=== PATIENT | female | born 1940 | race Caucasian/White ===

== ENCOUNTER → 2016-09-30 | Outpatient (REF) | payer MEDICARE, OTHER ==
[2016-09-30 12:07] LABS: ALBUMIN 4.1 GM/DL (3.2-5.2); ALBUMIN/GLOBULIN RATIO 1.14 (1.00-1.93); ALKALINE PHOSPHATASE 108 U/L (45-117); ALT/SGPT 23 U/L (12-78); ANION GAP 7 MEQ/L (8-16); AST/SGOT 24 U/L (15-37); BILIRUBIN,TOTAL 0.4 MG/DL (0.2-1.0); BLOOD UREA NITROGEN 16 MG/DL (7-18); CALCIUM LEVEL 9.1 MG/DL (8.8-10.2); CARBON DIOXIDE LEVEL 28 MEQ/L (21-32); CHLORIDE LEVEL 106 MEQ/L (98-107); CREATININE FOR GFR 0.73 MG/DL (0.55-1.02); GLOMERULAR FILTRATION RATE > 60.0 (>39); GLUCOSE, FASTING 103 MG/DL (83-110); POTASSIUM SERUM 4.4 MEQ/L (3.5-5.1); SODIUM LEVEL 141 MEQ/L (136-145); TOTAL PROTEIN 7.7 GM/DL (6.4-8.2)
[2016-09-30 12:31] LABS: MEAN CORPUSCULAR HEMOGLOBIN 28.6 pg (27.0-33.0); MEAN CORPUSCULAR HGB CONC 32.5 g/dl (32.0-36.5); MEAN CORPUSCULAR VOLUME 87.8 fl (80.0-96.0); RED CELL DISTRIBUTION WIDTH 13.1 % (11.5-14.5); WHITE BLOOD COUNT 6.7 K/mm3 (4.0-10.0)
== END ==
LOC: M SFHCLERA 08:16
PROVIDERS: ATTEND Internal Medicine
DX: D69.6 Thrombocytopenia, unspecified (principal); G62.9 Polyneuropathy, unspecified; M79.7 Fibromyalgia

== ENCOUNTER → 2016-10-09 | Outpatient (CLI) | payer MEDICARE, OTHER ==
[2016-10-09 08:28] LABS: INR 1.06
[2016-10-09 08:29] LABS: BASO % 0.4 % (0.0-1.0); EOS % 0.5 % (0.0-3.0); LARGE UNSTAINED CELL # 0.1 K/mm3 (0.0-0.4); LARGE UNSTAINED CELL % 1.8 % (0.0-4.0); LYMPH % 25.8 % (24.0-44.0); MEAN CORPUSCULAR HEMOGLOBIN 28.8 pg (27.0-33.0); MEAN CORPUSCULAR HGB CONC 32.5 g/dl (32.0-36.5); MEAN CORPUSCULAR VOLUME 88.6 fl (80.0-96.0); MONO # 1.3 K/mm3 (0.0-0.8); MONO % 18.1 % (0.0-5.0); NEUTROPHILS # 3.9 K/mm3 (1.8-7.7); NEUTROPHILS % 53.4 % (36.0-66.0); PLATELET COUNT, AUTOMATED 114 k/mm3 (150-450); RED CELL DISTRIBUTION WIDTH 13.1 % (11.5-14.5); WHITE BLOOD COUNT 7.3 K/mm3 (4.0-10.0)
[2016-10-09 08:55] LABS: COLLAGEN ADP 131 SECONDS (56-103)
== END ==
LOC: M LAB 07:46
PROVIDERS: ATTEND Internal Medicine Hematology & Oncology
DX: D69.3 Immune thrombocytopenic purpura (principal)

== ENCOUNTER → 2017-04-03 | Outpatient (REF) | payer MEDICARE, OTHER ==
[2017-04-03 11:48] LABS: MEAN CORPUSCULAR HEMOGLOBIN 28.6 pg (27.0-33.0); MEAN CORPUSCULAR VOLUME 89.3 fl (80.0-96.0); RED CELL DISTRIBUTION WIDTH 13.8 % (11.5-14.5); WHITE BLOOD COUNT 7.1 10^3/uL (4.0-10.0)
[2017-04-03 12:09] LABS: ALBUMIN 4.3 GM/DL (3.2-5.2); ALBUMIN/GLOBULIN RATIO 1.08 (1.00-1.93); ALKALINE PHOSPHATASE 118 U/L (45-117); ALT/SGPT 24 U/L (12-78); ANION GAP 8 MEQ/L (8-16); AST/SGOT 21 U/L (15-37); BILIRUBIN,TOTAL 0.5 MG/DL (0.2-1.0); BLOOD UREA NITROGEN 16 MG/DL (7-18); CALCIUM LEVEL 9.3 MG/DL (8.8-10.2); CARBON DIOXIDE LEVEL 28 MEQ/L (21-32); CHLORIDE LEVEL 104 MEQ/L (98-107); CHOLESTEROL LEVEL 169 MG/DL (<200); GLOMERULAR FILTRATION RATE > 60.0 (>39); GLUCOSE, FASTING 87 MG/DL (83-110); POTASSIUM SERUM 4.1 MEQ/L (3.5-5.1); SODIUM LEVEL 140 MEQ/L (136-145); TOTAL PROTEIN 8.3 GM/DL (6.4-8.2); TRIGLYCERIDES LEVEL 149 MG/DL (<150)
== END ==
LOC: M SFHCPLAZ 08:32 → M LRY 08:39
PROVIDERS: ATTEND Internal Medicine
DX: D69.6 Thrombocytopenia, unspecified (principal); E78.6 Lipoprotein deficiency; G62.9 Polyneuropathy, unspecified

== ENCOUNTER → 2017-07-15 | Outpatient (REF) | payer MEDICARE, OTHER | LOC: M SFHCWAGY 17:08 | DX: R30.0 Dysuria (principal) | CPT/HCPCS: 87086 ==

== ENCOUNTER → 2017-09-18 | Outpatient (REF) | payer MEDICARE, OTHER ==
[2017-09-18 16:07] LABS: HEMATOCRIT 37.8 % (36.0-47.0); HEMOGLOBIN 11.9 g/dl (12.0-15.5); MEAN CORPUSCULAR HEMOGLOBIN 27.7 pg (27.0-33.0); MEAN CORPUSCULAR HGB CONC 31.5 g/dl (32.0-36.5); MEAN CORPUSCULAR VOLUME 87.9 fl (80.0-96.0); PLATELET COUNT, AUTOMATED 123 10^3/uL (150-450); WHITE BLOOD COUNT 7.8 10^3/uL (4.0-10.0)
[2017-09-18 16:40] LABS: ALBUMIN 4.1 GM/DL (3.2-5.2); ALBUMIN/GLOBULIN RATIO 0.98 (1.00-1.93); ALKALINE PHOSPHATASE 117 U/L (45-117); ALT/SGPT 19 U/L (12-78); ANION GAP 4 MEQ/L (8-16); AST/SGOT 22 U/L (7-37); BILIRUBIN,TOTAL 0.4 MG/DL (0.2-1.0); BLOOD UREA NITROGEN 13 MG/DL (7-18); C REACTIVE PROTEIN QUANTITATIV 1.91 MG/DL (0.00-0.30); CALCIUM LEVEL 9.1 MG/DL (8.8-10.2); CARBON DIOXIDE LEVEL 30 MEQ/L (21-32); CHLORIDE LEVEL 103 MEQ/L (98-107); CREATININE FOR GFR 0.72 MG/DL (0.55-1.30); GLOMERULAR FILTRATION RATE > 60.0 (>39); GLUCOSE, FASTING 110 MG/DL (70-100); POTASSIUM SERUM 3.9 MEQ/L (3.5-5.1); RHEUMATOID FACTOR QUANT < 10.0 IU/ML (<15.0); SODIUM LEVEL 137 MEQ/L (136-145); TOTAL PROTEIN 8.3 GM/DL (6.4-8.2)
[2017-09-18 17:58] LABS: ERYTHROCYTE SEDIMENTATION RATE 31 mm/hr (0-30)
[2017-09-22 00:07] LABS: Lyme Disease IgG/IgM Antibodie <0.91 ISR (0.00-0.90); Lyme Disease IgM Ab Quantitati <0.80 index (0.00-0.79)
[2017-09-22 00:07] LABS: CYCLIC CITRULLINATED PEPTIDE 8 units (0-19)
== END ==
LOC: M SFHCPLAZ 14:42
DX: M15.9 Polyosteoarthritis, unspecified (principal); M79.7 Fibromyalgia; F41.9 Anxiety disorder, unspecified; D69.6 Thrombocytopenia, unspecified
CPT/HCPCS: 84443

== ENCOUNTER → 2017-10-12 | Outpatient (REF) | payer MEDICARE, OTHER ==
[2017-10-12 16:01] LABS: C REACTIVE PROTEIN QUANTITATIV 2.03 MG/DL (0.00-0.30)
[2017-10-12 16:33] LABS: ERYTHROCYTE SEDIMENTATION RATE 30 mm/hr (0-30)
== END ==
LOC: M SFHCPLAZ 12:11
DX: M15.9 Polyosteoarthritis, unspecified (principal)
CPT/HCPCS: 86140

== ENCOUNTER → 2017-11-25 | Outpatient (REF) | payer MEDICARE, OTHER ==
[2017-11-25 16:17] LABS: C REACTIVE PROTEIN QUANTITATIV 3.06 MG/DL (0.00-0.30)
[2017-11-25 16:42] LABS: ERYTHROCYTE SEDIMENTATION RATE 19 mm/hr (0-30)
== END ==
LOC: M SFHCPLAZ 11:47
DX: M15.9 Polyosteoarthritis, unspecified (principal)
CPT/HCPCS: 86140

== ENCOUNTER → 2017-12-21 | Outpatient (REF) | payer MEDICARE, OTHER ==
[2017-12-21 14:09] LABS: HEMATOCRIT 40.9 % (36.0-47.0); HEMOGLOBIN 12.9 g/dl (12.0-15.5); MEAN CORPUSCULAR HGB CONC 31.5 g/dl (32.0-36.5); MEAN CORPUSCULAR VOLUME 88.9 fl (80.0-96.0); PLATELET COUNT, AUTOMATED 133 10^3/uL (150-450); RED CELL DISTRIBUTION WIDTH 14.6 % (11.5-14.5); WHITE BLOOD COUNT 8.7 10^3/uL (4.0-10.0)
[2017-12-21 14:36] LABS: ERYTHROCYTE SEDIMENTATION RATE 24 mm/hr (0-30)
== END ==
LOC: M SFHCPLAZ 11:07
DX: M15.9 Polyosteoarthritis, unspecified (principal); Z79.899 Other long term (current) drug therapy
CPT/HCPCS: 86140

== ENCOUNTER → 2018-02-08 | Outpatient (REF) | payer MEDICARE, OTHER ==
[2018-02-08 18:29] LABS: C REACTIVE PROTEIN QUANTITATIV 1.07 MG/DL (0.00-0.30)
[2018-02-08 19:00] LABS: ERYTHROCYTE SEDIMENTATION RATE 18 mm/hr (0-30)
== END ==
LOC: M SFHCPLAZ 15:42
DX: M15.9 Polyosteoarthritis, unspecified (principal)
CPT/HCPCS: 86140

== ENCOUNTER → 2018-03-31 | Outpatient (REF) | payer MEDICARE, OTHER | LOC: M SFHCPLAZ 14:17 | DX: M15.9 Polyosteoarthritis, unspecified (principal); Z23 Encounter for immunization | CPT/HCPCS: 90682 ==

== ENCOUNTER → 2018-04-01 | Outpatient (REF) | payer MEDICARE, OTHER ==
[2018-04-01 12:28] LABS: ERYTHROCYTE SEDIMENTATION RATE 23 mm/hr (0-30)
[2018-04-01 13:31] LABS: C REACTIVE PROTEIN QUANTITATIV 2.28 MG/DL (0.00-0.30)
== END ==
LOC: M SFHCPLAZ 08:01
DX: M15.9 Polyosteoarthritis, unspecified (principal)
CPT/HCPCS: 86140

== ENCOUNTER → 2018-04-09 | Outpatient (REF) | payer MEDICARE, OTHER | LOC: M SFHCWAGY 15:48 | DX: R35.0 Frequency of micturition (principal) | CPT/HCPCS: 87086 ==

== ENCOUNTER → 2018-05-05 | Outpatient (CLI) | payer MEDICARE, OTHER | LOC: M LRY 09:24 | DX: M19.041 Primary osteoarthritis, right hand (principal); M19.042 Primary osteoarthritis, left hand; M17.0 Bilateral primary osteoarthritis of knee; M25.711 Osteophyte, right shoulder; M25.712 Osteophyte, left shoulder; M19.031 Primary osteoarthritis, right wrist; M19.032 Primary osteoarthritis, left wrist; M85.88 Other specified disorders of bone density and structure, other site; M25.732 Osteophyte, left wrist | CPT/HCPCS: 73030; 84550 ==

== ENCOUNTER → 2018-05-05 | Outpatient (REF) | payer MEDICARE, OTHER ==
[2018-05-05 11:48] LABS: BASO % 0.2 % (0.0-1.0); EOS % 0.1 % (0.0-3.0); HEMATOCRIT 39.5 % (36.0-47.0); HEMOGLOBIN 12.6 g/dl (12.0-15.5); LYMPH # 1.8 10^3/uL (1.5-4.5); LYMPH % 18.1 % (24.0-44.0); MEAN CORPUSCULAR HEMOGLOBIN 28.5 pg (27.0-33.0); MEAN CORPUSCULAR HGB CONC 31.9 g/dl (32.0-36.5); MEAN CORPUSCULAR VOLUME 89.4 fl (80.0-96.0); MONO # 1.9 10^3/uL (0.0-0.8); MONO % 18.9 % (0.0-5.0); NEUTROPHILS % 61.7 % (36.0-66.0); PLATELET COUNT, AUTOMATED 107 10^3/uL (150-450); RED BLOOD COUNT 4.42 10^6/uL (4.00-5.40); WHITE BLOOD COUNT 9.8 10^3/uL (4.0-10.0)
[2018-05-05 12:09] LABS: ALBUMIN 4.2 GM/DL (3.2-5.2); ALBUMIN/GLOBULIN RATIO 1.14 (1.00-1.93); ALKALINE PHOSPHATASE 97 U/L (45-117); ALT/SGPT 25 U/L (12-78); ANION GAP 7 MEQ/L (8-16); AST/SGOT 23 U/L (7-37); BILIRUBIN,TOTAL 0.4 MG/DL (0.2-1.0); BLOOD UREA NITROGEN 16 MG/DL (7-18); C REACTIVE PROTEIN QUANTITATIV 1.28 MG/DL (0.00-0.30); CALCIUM LEVEL 9.2 MG/DL (8.8-10.2); CARBON DIOXIDE LEVEL 30 MEQ/L (21-32); CHLORIDE LEVEL 103 MEQ/L (98-107); GLOMERULAR FILTRATION RATE > 60.0 (>39); GLUCOSE, FASTING 82 MG/DL (70-100); POTASSIUM SERUM 4.3 MEQ/L (3.5-5.1); SODIUM LEVEL 140 MEQ/L (136-145); TOTAL PROTEIN 7.9 GM/DL (6.4-8.2); URIC ACID 4.3 MG/DL (2.6-6.0)
[2018-05-05 12:37] LABS: ERYTHROCYTE SEDIMENTATION RATE 15 mm/hr (0-30)
== END ==
LOC: M SFHCLERA 09:14
DX: M15.0 Primary generalized (osteo)arthritis (principal); M25.511 Pain in right shoulder
CPT/HCPCS: 84550

== ENCOUNTER → 2018-07-05 | Outpatient (REF) | payer MEDICARE, OTHER | LOC: M SFHCPLAZ 08:23 | PROVIDERS: ATTEND Internal Medicine | DX: E78.6 Lipoprotein deficiency (principal) ==

== ENCOUNTER → 2018-07-09 | Outpatient (REF) | payer MEDICARE, OTHER | LOC: M SFHCPLAZ 14:19 | PROVIDERS: ATTEND Internal Medicine | DX: R30.0 Dysuria (principal) | CPT/HCPCS: 81002; 87086; G0463 ==

== ENCOUNTER → 2018-08-02 | Outpatient (CLI) | payer MEDICARE, OTHER ==
[2018-08-02 11:39] LABS: BASO % 0.2 % (0.0-1.0); EOS % 0.2 % (0.0-3.0); HEMATOCRIT 40.7 % (36.0-47.0); HEMOGLOBIN 12.8 g/dl (12.0-15.5); LYMPH % 24.5 % (24.0-44.0); MEAN CORPUSCULAR HEMOGLOBIN 28.8 pg (27.0-33.0); MEAN CORPUSCULAR HGB CONC 31.4 g/dl (32.0-36.5); MEAN CORPUSCULAR VOLUME 91.5 fl (80.0-96.0); MONO # 1.5 10^3/uL (0.0-0.8); MONO % 18.3 % (0.0-5.0); NEUTROPHILS # 4.6 10^3/uL (1.8-7.7); NEUTROPHILS % 55.7 % (36.0-66.0); PLATELET COUNT, AUTOMATED 119 10^3/uL (150-450); RED BLOOD COUNT 4.45 10^6/uL (4.00-5.40); WHITE BLOOD COUNT 8.2 10^3/uL (4.0-10.0)
== END ==
LOC: M LAB 11:05
PROVIDERS: ATTEND Internal Medicine
DX: M15.0 Primary generalized (osteo)arthritis (principal)

== ENCOUNTER → 2018-09-01 | Outpatient (REF) | payer MEDICARE, OTHER | LOC: M SFHCPLAZ 15:41 | PROVIDERS: ATTEND Internal Medicine | DX: M15.9 Polyosteoarthritis, unspecified (principal) | CPT/HCPCS: 36415; 85652; 86140; G0463 ==

== ENCOUNTER → 2019-03-02 | Outpatient (REF) | payer MEDICARE, OTHER ==
[2019-03-02 11:28] LABS: BASO % 0.2 % (0.0-1.0); HEMATOCRIT 38.9 % (36.0-47.0); HEMOGLOBIN 12.5 g/dl (12.0-15.5); LYMPH # 1.7 10^3/uL (1.5-5.0); MEAN CORPUSCULAR HEMOGLOBIN 29.8 pg (27.0-33.0); MEAN CORPUSCULAR HGB CONC 32.1 g/dl (32.0-36.5); MEAN CORPUSCULAR VOLUME 92.6 fl (80.0-96.0); MONO # 1.5 10^3/uL (0.0-0.8); MONO % 14.1 % (0.0-5.0); NEUTROPHILS # 7.3 10^3/uL (1.5-8.5); NEUTROPHILS % 68.5 % (36.0-66.0); PLATELET COUNT, AUTOMATED 104 10^3/uL (150-450); WHITE BLOOD COUNT 10.6 10^3/uL (4.0-10.0)
[2019-03-02 11:35] LABS: ALBUMIN 4.1 GM/DL (3.2-5.2); ALT/SGPT 21 U/L (12-78); BILIRUBIN,TOTAL 0.6 MG/DL (0.2-1.0); BLOOD UREA NITROGEN 12 MG/DL (7-18); C REACTIVE PROTEIN QUANTITATIV 1.36 MG/DL (0.00-0.30); CALCIUM LEVEL 9.2 MG/DL (8.8-10.2); CARBON DIOXIDE LEVEL 29 MEQ/L (21-32); CHLORIDE LEVEL 103 MEQ/L (98-107); CHOLESTEROL LEVEL 141 MG/DL (<200); GLOMERULAR FILTRATION RATE > 60.0 (>39); GLUCOSE, FASTING 93 MG/DL (70-100); HDL CHOLESTEROL 38 MG/DL (>40); LDL CHOLESTEROL 82 MG/DL (<100); NON-HDL-C 103 MG/DL; POTASSIUM SERUM 4.1 MEQ/L (3.5-5.1); SODIUM LEVEL 139 MEQ/L (136-145); TOTAL PROTEIN 8.1 GM/DL (6.4-8.2); TRIGLYCERIDES LEVEL 106 MG/DL (<150)
[2019-03-02 12:00] LABS: ERYTHROCYTE SEDIMENTATION RATE 19 mm/hr (0-30)
== END ==
LOC: M SFHCPLAZ 08:47
PROVIDERS: ATTEND Internal Medicine
DX: D69.6 Thrombocytopenia, unspecified (principal); M15.9 Polyosteoarthritis, unspecified; E78.6 Lipoprotein deficiency

== ENCOUNTER 2019-04-04 12:01 | Inpatient (IN) | payer MEDICARE, OTHER ==
[~2019-04-04] VITALS: Ht 165.1 cm; Wt 79.8 kg
[2019-04-04] MEDS ORDERED: DULO1CAP5 PO (12:14)
[2019-04-04 15:29] LABS: BASO % 0.2 % (0.0-1.0); EOS % 0.1 % (0.0-3.0); HEMATOCRIT 40.3 % (36.0-47.0); LYMPH # 1.8 10^3/uL (1.5-5.0); LYMPH % 12.7 % (24.0-44.0); MEAN CORPUSCULAR HEMOGLOBIN 29.6 pg (27.0-33.0); MEAN CORPUSCULAR HGB CONC 32.3 g/dl (32.0-36.5); MEAN CORPUSCULAR VOLUME 91.8 fl (80.0-96.0); MONO % 22.4 % (0.0-5.0); NEUTROPHILS # 8.8 10^3/uL (1.5-8.5); NEUTROPHILS % 62.1 % (36.0-66.0); PLATELET COUNT, AUTOMATED 123 10^3/uL (150-450); RED BLOOD COUNT 4.39 10^6/uL (4.00-5.40); WHITE BLOOD COUNT 14.2 10^3/uL (4.0-10.0)
[2019-04-04 15:50] LABS: ERYTHROCYTE SEDIMENTATION RATE 72 mm/hr (0-30)
[2019-04-04 15:54] LABS: BLOOD UREA NITROGEN 11 MG/DL (7-18); CALCIUM LEVEL 9.4 MG/DL (8.8-10.2); CARBON DIOXIDE LEVEL 27 MEQ/L (21-32); CHLORIDE LEVEL 100 MEQ/L (98-107); CREATININE FOR GFR 0.68 MG/DL (0.55-1.30); GLOMERULAR FILTRATION RATE > 60.0 (>39); GLUCOSE, FASTING 108 MG/DL (70-100); POTASSIUM SERUM 3.8 MEQ/L (3.5-5.1); SODIUM LEVEL 133 MEQ/L (136-145)
[2019-04-04 16:31] LABS: MONO # 3.2 10^3/uL (0.0-0.8)
[2019-04-04] MEDS ORDERED: VANCOMYCIN HCL 1,000 MG, VIAL MATE ADAPTER 1 EACH in D5W 250 ML IV ONE (17:15)
--- NOTE | 2019-04-04 20:59 | REPVR ---
PROCEDURE INFORMATION: Exam: MR Left Upper Extremity Joint Without Contrast, Shoulder Exam date and time: 04/04/2019 5:02 PM Clinical history: 78 years old, female; Shoulder; Left; Patient HX: Per PT, received a pnuemonia shot last , now with pain and immobility in lt shld; Additional info: Left shoulder pain; R/O sepsis TECHNIQUE: Imaging protocol: MR of the Left upper extremity without contrast. Exam focused on the shoulder. 3D rendering: MIP reconstructed images were created and reviewed. COMPARISON: CR SHOULDER COMPLETE 05/05/2018 9:48 AM FINDINGS: Distention of the subacromial/subdeltoid bursa, measuring up to 2 cm in transverse thickness, with synovial proliferation. Small volume of glenohumeral joint fluid is also present with mild synovial proliferation and there may be communication between the bursa and the glenohumeral joint through a supraspinatus defect. Muscle edema is seen involving the deltoid and rotator cuff musculature Osseous structures are aligned normally. No linear fracture or concerning osseous lesion. Degenerative cystic changes are present in the lateral humeral head at the supraspinatus insertion level. AC joint is unremarkable for age. No large inferiorly directed subacromial spur. Supraspinatus demonstrates moderately severe tendinopathy with globular thickening and increased T2 signal and there appears to be a full thickness tear just posterior to the anterior margin, measuring perhaps 1 cm AP, retracted by 1 cm. Infraspinatus tendon appears intact. Normal muscle bulk and signal is preserved. Teres minor appears normal. Subscapularis tendon appears intact. Normal muscle bulk and signal in the imaged portions. Long head biceps tendon lies in the intertubercular sulcus. Intact biceps anchor. No evidence of traumatic glenoid labrum detachment. Degenerative chondral thinning is present in glenohumeral joint with areas of full-thickness cartilage loss and reactive osteophytes. Coracoacromial arch ligaments appear intact. IMPRESSION: Significant distention of the subacromial/subdeltoid bursa with fluid, and associated synovitis, possibly communicating with the glenohumeral joint. Adjacent edema within the deltoid and rotator cuff muscles. I cannot exclude infection and aspiration of the bursa may be warranted. Small full-thickness supraspinatus tear just posterior to the anterior leading margin, with moderate tendinopathy involving the remainder of the tendon. Electronically signed by: Ricky Leo On 04/04/2019 20:59:12 PM
[2019-04-04] MEDS ORDERED: NASA1SPR (21:39)
[2019-04-04] MEDS ORDERED: NATU1TAB5 PO (21:39)
[2019-04-04] MEDS ORDERED: AMBI5TAB PO (21:39)
[2019-04-04] MEDS ORDERED: MAGN30TA PO (21:39)
[2019-04-04] MEDS ORDERED: CALC1TAB8 PO (21:39)
[2019-04-04] MEDS ORDERED: OCUVTAB4 PO (21:39)
--- NOTE | 2019-04-04 23:44 | HPEPDOC ---
General Date of Admission 04/04/19 Date of Service: Apr 04, 2019 Primary Care Physician: Lamberto Saunders Chief Complaint The patient is a 78-year-old female admitted with a reason for visit of Shoulder Pain. Source: Patient Exam Limitations: No limitations Timing/Duration: Other Severity: Moderate (4 days) Associated Symptoms: Other History of Present Illness This is a 78 years old white female with past medical history of arthritis meniscus problems. Patient received the diuretics. 4 days ago on the left shoulder and of the word pain started, which is slowly getting worse, etc., red, swollen and crit. I local temperature and patient came to ER for further workup. Home Medications Scheduled Calcium Carbonate/Vitamin D3 (Calcium 600-Vit D3 400 Tablet) 1 Each Tablet, 1 TAB PO DAILY, (Reported) Cholecalciferol (Vitamin D3) (Vitamin D3) 5,000 Unit Tablet, 5,000 UNIT PO DAILY, (Reported) Duloxetine Hcl (Duloxetine HCl) 30 Mg Capsule.dr, 30 MG PO DAILY, (Reported) Magnesium (Magnesium) 30 Mg Tablet, 60 MG PO DAILY, (Reported) Vit A/Vit C/Vit E/Zinc/Copper (Preservision Areds Tablet) 1 Each Tablet, 1 TAB PO DAILY, (Reported) Scheduled PRN Triamcinolone Acetonide (Nasacort) 10.8 Ml [place], 2 SPRAYS NA DAILY PRN for NASAL CONGESTION, (Reported) Zolpidem Tartrate (Ambien) 5 Mg Tablet, 5 MG PO QHS PRN for INSOMNIA, (Reported) Allergies Coded Allergies: Nitrate Analogues (Verified Allergy, Intermediate, REDDNESS IN FACE AND NECK, 04/04/19) Sulfa (Sulfonamide Antibiotics) (Verified Allergy, Intermediate, REDDNESS IN FACE AND NECK, 04/04/19) nitrofurantoin (Verified Allergy, Intermediate, REDDNESS IN FACE AND NECK, 04/04/19) NSAIDS (Non-Steroidal Anti-Inflamma (Verified Allergy, Unknown, 04/04/19) Penicillins (Verified Adverse Reaction, Intermediate, HANDS TINGLED, SYNCOPE, 04/04/19) Past Medical History Medical History Osteoarthritis, vitamin D deficiency, meniscus problems, qualitative platelet disorder Surgical History Medicine. Discussed surgery Family History Significant Family History: No pertinent family hx Social History * Smoker: Denies Alcohol: Denies Drugs: denies A-FIB/CHADSVASC A-FIB History Current/History of A-Fib/PAF?: No Review of Systems Constitutional: Denies: Chills, Fever, Malaise, Night Sweats, Weakness, Fatigue, Weight Loss, Lethargy, Other Eyes: Denies: Pain, Vision change, Conjunctivae inflammation, Eyelid inflammation, Redness, Other ENT: Denies: Head Aches, Ear Pain, Dysphagia, Sinus Congestion, Post Nasal Drip, Sore Throat, Epistaxis, Other Symptoms Skin: Denies: Rash, Lesions, Jaundice, Bruising, Itching, Dry, Breakdown, Nail Changes, Other Pulmonary: Denies: Dyspnea, Cough, Pleuritic Chest Pain, Other Symptoms Cardiovascular: Denies: Chest Pain, Palpitations, Orthopnea, Paroxysmal Noc. Dyspnea, Edema, Lt Headedness, Other Symptoms Gastrointestinal: Denies: Nausea, Vomiting, Abdominal Pain, Diarrhea, Constipation, Melena, Hematochezia, Other Symptoms Genitourinary: Denies: Dysuria, Frequency, Incontinence, Hematuria, Retention, Other Symptoms Musculoskeletal: Reports: Shoulder Pain, Other Symptoms (, F, shoulder pain) Neurological: Denies: Weakness, Numbness, Incoordination, Change in speech, Confusion, Seizures, Other Symptoms Psych: Denies: Mood Normal, Anxiety, Depression, Memory Issues, Thoughts of Self Harm, Anger, Thoughts of Harming Other, Other Psych Physical Examination General Exam: Positive: Alert, Cooperative Eye Exam: Positive: PERRLA, Conjunctiva & lids normal ENT Exam: Positive: Atraumatic, Mucous membr. moist/pink Neck Exam: Positive: Supple Chest Exam: Positive: Normal air movement Heart Exam: Positive: Rate Normal, Normal S1, Normal S2 Abdomen Exam: Positive: Normal bowel sounds, Soft Extremity Exam: Positive: Normal pulses, Other (, redness, swelling of left shoulder with tenderness on palpation at the deltoid muscle) Skin Exam: Positive: Other skin issue (redness at the left shoulder) Vital Signs Vital Signs Date Time Temp Pulse Resp B/P (MAP) Pulse Ox O2 Delivery O2 Flow Rate FiO2 04/04/19 22:17 99.3 90 17 174/74 (107) 96 Room Air Laboratory Data Labs 24H Laboratory Tests 2 04/04/19 15:11: Immature Granulocyte % (Auto) 2.5, White Blood Count 14.2H, Red Blood Count 4.39, Hemoglobin 13.0, Hematocrit 40.3, Mean Corpuscular Volume 91.8, Mean Lisa uscular Hemoglobin 29.6, Mean Corpuscular Hemoglobin Concent 32.3, Red Cell Distribution Width 14.6H, Platelet Count 123L, Neutrophils (%) (Auto) 62.1, Lymphocytes (%) (Auto) 12.7L, Monocytes (%) (Auto) 22.4H, Eosinophils (%) (Auto) 0.1, Basophils (%) (Auto) 0.2, Neutrophils # (Auto) 8.8H, Lymphocytes # (Auto) 1.8, Monocytes # (Auto) 3.2H, Eosinophils # (Auto) 0.0, Basophils # (Auto) 0.0, Nucleated Red Blood Cells % (auto) 0.0, Erythrocyte Sedimentation Rate 72H, Anion Gap 6L, Glomerular Filtration Rate > 60.0, Lactic Acid Level 1.1, Blood Urea Nitrogen 11, Creatinine 0.68, Sodium Level 133L, Potassium Level 3.8, Chloride Level 100, Carbon Dioxide Level 27, Calcium Level 9.4, C-Reactive Prot ein, Quantitative 16.60H CBC/BMP Laboratory Tests 04/04/19 15:11 Red Blood Count 4.39, Mean Corpuscular Volume 91.8, Mean Corpuscular Hemoglobin 29.6, Mean Corpuscular Hemoglobin Concent 32.3, Red Cell Distribution Width 14.6 H, Neutrophils (%) (Auto) 62.1, Lymphocytes (%) (Auto) 12.7 L, Monocytes (%) (Auto) 22.4 H, Eosinophils (%) (Auto) 0.1, Basophils (%) (Auto) 0.2, Neutrophils # (Auto) 8.8 H, Lymphocytes # (Auto) 1.8, Monocytes # (Auto) 3.2 H, Eosinophils # (Auto) 0.0, Basophils # (Auto) 0.0, Calcium Level 9.4 Microbiology Microbiology 04/04/19 Blood Culture, Received Pending 04/04/19 Blood Culture, Received Pending Problems (1) Other infective bursitis, left shoulder Status: Acute Problem Text: Patient was seen and evaluated by Dr. Gandhi from orthopedic surgery and has recommended to admit patient and get her medically clear for possible washout of the bursa [facility] IV vancomycin has been started and will continue 1 g IV every 12 hours Hematology consultation with Dr. Choi to be called in a.m. to clear the patient from hematology point of view for qualitative platelet disorder Continue home meds Pain management in progress DVT prophylaxis with SCDs NPo from midnight for possible surgery in a.m. (2) Cellulitis of left shoulder Status: Acute Problem Text: Vancomycin 1 g IV every 12 hours CBC, CMP in a.m. , Tylenol when necessary Percocet 1 tab by mouth every 4 hours when necessary Plan / VTE VTE Prophylaxis Ordered?: Yes RED CRONIN MD Apr 04, 2019 23:44
[2019-04-04] MEDS ORDERED: zolPIDEM TARTRATE 5 MG TAB PO PRN (23:45)
[2019-04-05] VITALS (9 sets, daily range): BP systolic 144–163; BP diastolic 70–92
[2019-04-05] MEDS: PERCOCET 5MG/325MG TAB PO PRN ×2 (01:39→21:15)
[2019-04-05] MEDS: VANCOMYCIN HCL 1,000 MG, VIAL MATE ADAPTER 1 EACH in D5W 250 ML IV SCH ×2 (02:31→21:04)
--- NOTE | 2019-04-05 05:16 | PHACANCOPD ---
PHARMACY VANCOMYCIN DOSING Pt Demographics Demographics Patient Age:78 , Weight:79.800 , Gender: female Adjusted Body Weight Date: 04/05/19, Adjusted Body Weight: [66.12] Kg Vancomycin Vancomycin indication: SSTI LEFT SHOULDER Vancomycin Target Ranges: 15-20 mcg/ml Vancomycin Load Y/N: No Load Dose Date Time Vancomycin Load Dose: Date: Time: Vancomycin Dose Date: 04/05/19. Current Vancomycin Dose: [1GM@18,THEN Q18@02] Intermittent Dosing?: No Labs Micro Microbiology 04/04/19 Blood Culture, Received Pending 04/04/19 Blood Culture, Received Pending Creatinine Clearance Date:04/05/19. Creatinine Clearance: [~49.9].CALCULATED Assessment and Plan Maintaining Current Dose?: Yes Reason for dose change: No Dose Change Pharmacist Note Pharmacist Note Date: 04/05/19. Pharmacist note:[id number] admitted w/ l.shoulder pain,swelling,cellulitis wt:79.8kg (ABW=66.12kg),ht:65",SCR:0.68, Calculated CRCL~49.9. Allergies/ADR: nitrofurantoin,nsaids,sulfa,pcn. Vancomycin 1 gram administered in ED 04/04@18:30, then will begin q18H regimen with first dose 04/05@0200(8 hours after 1st). trough is scheduled for this pm@1900(prior to the 3rd dose)-Will continue to monitor labs and make adjustments as necessary. PARTHA BAZZI PHARMACY Apr 05, 2019 05:16
[2019-04-05] MEDS: DULoxetine 30 MG CAP (CYMBALTA) PO SCH (09:02)
--- NOTE | 2019-04-05 09:15 | HPE ---
DATE OF ADMISSION: 04/04/2019 CHIEF COMPLAINT: Left shoulder pain after vaccine. HISTORY OF PRESENT ILLNESS: This 78-year-old female was seen today for 5-day history of left shoulder pain. She had her flu shot at [facility] about 5 days ago now. She knows that she did not feel particularly well that evening. She was not feeling well. She states she developed increasing amounts of left shoulder pain and presented to the emergency department. She has never had anything like this before. 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 PAST MEDICAL HISTORY: Osteoarthritis, vitamin D deficiency, meniscus problems, qualitative platelet disorder. MEDICATIONS: - calcium carbonate/vitamin D - duloxetine - magnesium - vitamins ALLERGIES: To NITRATE ANALOG, SULFA, NITROFURANTOIN, NONSTEROIDAL ANTIINFLAMMATORY DRUGS (NSAIDS),PENICILLINS. SOCIAL HISTORY: Denies smoking, alcohol, drug use. PHYSICAL EXAMINATION: A well-appearing 78 old female. She is alert and times three. She is here with her son. She responds appropriately. She looks well. She is standing up, able to sit down appropriately. Inspection of the shoulder reveals some mild redness and warmth, especially at the anterior aspect of the deltoid. There is no other hot, swollen, warm, or painful joints. Internal and external rotation of the arm at the side of the body does not elicit any pain, however, active and passive is to only about 15 degrees before quite a bit of shoulder pain. There is a little bit of fullness on the deltoid. Normal sensation throughout the hand in the median, radial, and ulnar nerves. Good motor function of the same . Hands warm and well perfused and strong radial pulse. LABORATORY EXAMINATION: Yesterday afternoon reveals a white blood cell of 14.2. Neutrophil percentage 62%. ESR 72. CRP 16.6. There were radiographs taken at the urgent care center. These were not put onto the computer system yet. MRI was performed urgently of the left shoulder. This shows significant distention of the subacromial/subdeltoid bursa with fluid and associated synovitis, possibly communicating with the glenohumeral joint. Adjacent edema within the deltoid and rotator cuff muscles. I cannot exclude infection and aspiration of the bursa may be warranted. Small full-thickness supraspinatus tear just posterior to the anterior leading Margin with moderate tendinopathy involving the remainder of the tendon. This was the radiologist's dictation from Ricky Leo at 04/04/2019 at 2059. According to own interpretation, this does appear to be a significant subdeltoid/subacromial bursitis indicating likely infection. There is only a small amount of joint fluid. ASSESSMENT AND PLAN: This 78-year-old female appears to have developed septic bursitis after a vaccine injection of the left shoulder. This could also be a severe inflammatory reaction. We have started her on vancomycin. I think it would be ham to least perform an aspiration of the fluid and for cultures or I think it more of a definitive procedure would be to perform irrigation and debridement arthroscopically of both the subacromial space, as well as the glenoid, to get source control, as well as to preserve the cartilage in her shoulder if it does communicate to the intraarticular portion of the left shoulder. For now, the patient would like to wait to see what her evp marketing would say about from the surgery, as she had quite a bit of a problem in the past with a knee arthroscopy and spent 5 days in hospital. We will wait to see what they say. In the meantime, we will make sure that her vital signs are stable, that she is not developing any signs of sepsis. We will keep her fasting in preparation for procedure if she wants to go ahead with that and if it is safe per her evp marketing. I await their opinion.
[2019-04-05] MEDS: NS 1,000 ML IV SCH (11:14)
--- NOTE | 2019-04-05 11:35 | IPNPDOC ---
Date Seen The patient was seen on 04/05/19. Progress Note SUBJECTIVE: Patient reported persistent L. shoulder discomfort but appeared comfortable sitting in bed this morning. Afebrile overnight. No acute issues reported. Platelets 123 today, Hb 13, no evidence of bleeding. OBJECTIVE PHYSICAL EXAMINATION: VITAL SIGNS: Please see below. General: No acute distress, Alert Eyes: Normal sclera, EOMI. HENT: Atraumatic, neck supple, moist mucous membranes Cardiovascular: Normal rate, normal rhythm. Pulmonary: Clear to auscultation b/l, no wheezing GI: Soft, nontender, nondistended Skin: Warm and dry. MSK: L. shoulder with mild erythema, warm to touch and with swelling. Tender to palpation withi reduced ROM. Neuro: CN grossly intact. No focal deficits. Psych: oriented x 3 LABORATORY DATA, IMAGING STUDIES, MICROBIOLOGY: Please see below. DVT prophylaxis ordered?: SCDs L. shoulder MRI- IMPRESSION: Significant distention of the subacromial/subdeltoid bursa with fluid, and associated synovitis, possibly communicating with the glenohumeral joint. Adjacent edema within the deltoid and rotator cuff muscles. I cannot exclude infection and aspiration of the bursa may be warranted. Small full-thickness supraspinatus tear just posterior to the anterior leading margin, with moderate tendinopathy involving the remainder of the tendon. ASSESSMENT AND PLAN: 1. L. shoulder bursitis - Pain control. - c/w Vancomycin. - Ortho team following. Planned for OR today for washout. - Discussed with patient's second shift supervisor Dr. Yen [phone]. Recommended platelets prior to procedure. If excessive bleeding occurs during/after procedure, can give additional platelets as well as DDAVP .3mcg/kg if needed. Does not expect major bleeding/complications with this procedure however. 2. Qualitative platelet defect - Follows with Dr. Yen in [place] every few years. - Last seen in 2017. Normally with no complications. - To give platelets prior to OR today. If needed, can get more after procedure if excessively bleeding is noted. VS, I&O, 24H, Fishbone Vital Signs/I&O Vital Signs Date Time Temp Pulse Resp B/P (MAP) Pulse Ox O2 Delivery O2 Flow Rate FiO2 04/05/19 06:00 98.4 76 18 156/72 (100) 95 04/04/19 22:17 Room Air I&O- Last 24 Hours up to 6 AM 04/05/19 05:59 Intake Total 20 ml Balance 20 ml Laboratory Data 24H LABS Laboratory Tests 2 04/04/19 15:11: Immature Granulocyte % (Auto) 2.5, White Blood Count 14.2H, Red Blood Count 4.39, Hemoglobin 13.0, Hematocrit 40.3, Mean Corpuscular Volume 91.8, Mean Corpuscular Hemoglobin 29.6, Mean Corpuscular Hemoglobin Concent 32.3, Red Cell Distribution Width 14.6H, Platelet Count 123L, Neutrophils (%) (Auto) 62.1, Lymphocytes (%) (Auto) 12.7L, Monocytes (%) (Auto) 22.4H, Eosinophils (%) (Auto) 0.1, Basophils (%) (Auto) 0.2, Neutrophils # (Auto) 8.8H, Lymphocytes # (Auto) 1.8, Monocytes # (Auto) 3.2H, Eosinophils # (Auto) 0.0, Basophils # (Auto) 0.0, Nucleated Red Blood Cells % (auto) 0.0, Erythrocyte Sedimentation Rate 72H, Anion Gap 6L, Glomerular Filtration Rate > 60.0, Lactic Acid Level 1.1, Blood Urea Nitrogen 11, Creatinine 0.68, Sodium Level 133L, Potassium Level 3.8, Chloride Level 100, Carbon Dioxide Level 27, Calcium Level 9.4, C-Reactive Protein, Quantitative 16.60H CBC/BMP Laboratory Tests 04/04/19 15:11 Red Blood Count 4.39, Mean Corpuscular Volume 91.8, Mean Corpuscular Hemoglobin 29.6, Mean Corpuscular Hemoglobin Concent 32.3, Red Cell Distribution Width 14.6 H, Neutrophils (%) (Auto) 62.1, Lymphocytes (%) (Auto) 12.7 L, Monocytes (%) (Auto) 22.4 H, Eosinophils (%) (Auto) 0.1, Basophils (%) (Auto) 0.2, Neutrophils # (Auto) 8.8 H, Lymphocytes # (Auto) 1.8, Monocytes # (Auto) 3.2 H, Eosinophils # (Auto) 0.0, Basophils # (Auto) 0.0, Calcium Level 9.4 Microbiology Microbiology 04/04/19 Blood Culture, Received Pending 04/04/19 Blood Culture, Received Pending MATHIEU BUI MD Apr 05, 2019 11:35
[2019-04-05] MEDS ORDERED: LIDOCAINE 2% INJ 100 MG/5 ML SDV (FOR ANES.) As Ordered ONE (13:15)
[2019-04-05] MEDS ORDERED: ROCURONIUM BROMIDE 50 MG/5 ML VIAL As Ordered ONE (13:15)
[2019-04-05] MEDS ORDERED: dexameTHASONE 4 MG/ML 1ML VIAL (J1100) As Ordered ONE (13:15)
[2019-04-05] MEDS ORDERED: PROPOFOL 200 MG/20 ML VIAL As Ordered ONE (13:15)
[2019-04-05] MEDS ORDERED: ONDANSETRON 4MG/2ML VIAL (J2405) As Ordered ONE ×2 (13:15→18:35)
[2019-04-05] MEDS ORDERED: fentaNYL 250 MCG/5 ML INJECTION (J3010) As Ordered ONE (13:16)
[2019-04-05] MEDS ORDERED: MIDAZOLAM INJ 2 MG/2 ML VIAL (J2250) As Ordered ONE (13:16)
[2019-04-05] MEDS ORDERED: EPINEPHrine 1MG/ML INJ 30ML MD-VIAL As Ordered ONE (15:02)
[2019-04-05] MEDS ORDERED: BUPIVACAINE HCL 0.25% 30 ML VIAL As Ordered ONE (15:48)
[2019-04-05] MEDS ORDERED: LR 1,000 ML IV SCH (17:30)
[2019-04-05] MEDS ORDERED: ONDANSETRON 4MG/2ML VIAL (J2405) IV PRN ×2 (17:30→22:00)
[2019-04-05] MEDS ORDERED: fentaNYL 100 MCG/2 ML INJECTION (J3010) As Ordered ONE (17:30)
[2019-04-05] MEDS: fentaNYL 100 MCG/2 ML INJECTION (J3010) IV PRN ×4 (17:33→18:14)
[2019-04-05] MEDS ORDERED: PERCOCET 5MG/325MG TAB PO PRN (18:30)
[2019-04-05] MEDS: LR 1,000 ML IV SCH (18:31)
--- NOTE | 2019-04-05 18:31 | RO ---
DATE OF PROCEDURE: 04/05/2019 PREOPERATIVE DIAGNOSIS: Left shoulder septic bursitis. POSTOPERATIVE DIAGNOSIS: Left shoulder septic bursitis versus inflammatory reaction. PLANNED PROCEDURE: Left shoulder irrigation and debridement, arthroscopic. SURGERY PERFORMED: Left shoulder irrigation and debridement, arthroscopic. SURGEON: Dr. Jose C Gandhi FELLER BUNCHER OPERATOR: [employer] MANAGER: Dr. Bhagat TYPE OF ANESTHETIC: General anesthetic. SAMPLES SENT: Two separate fluid cultures were sent from aspirations, anterior and posterior, in the subacromial space. These appeared to be to 2 and 1 mL of serosanguineous, slightly thick fluid but no obvious andrea pus. I also took tissue samples one time from the subacromial bursitis tissue. OPERATIVE PREAMBLE: This 78-year-old female had a vaccine in her left shoulder. Over the next 5 days, she developed extreme shoulder pain, increase in her inflammatory markers and blood work and redness, warmth and pain to moving her shoulder. MRI demonstrated a large subdeltoid bursal fluid collection and a small amount of fluid in the joint. With discussion with the patient, as well as her daughter, about the pros, cons, risks, and benefits of nonoperative treatment with antibiotics, aspiration versus arthroscopy for irrigation and debridement, it was decided to go ahead with surgery. I marked the left upper extremity, and we reiterated the risks in preoperative holding of all her options. She wished to go ahead, and I marked the left upper extremity and we proceeded to surgery. DESCRIPTION OF PROCEDURE: The patient was brought to the operating theater. She was placed supine on the beach chair positioner. All bony prominences were padded. Spider arm positioner was used for the patient's left side. Vancomycin had been already administered for the patient's antibiotic preoperative prophylaxis. General anesthesia was induced. The patient was sat up at a 45-degree angle. Spider limb positioner was used. Left upper extremity was thoroughly prepped with chlorhexidine alcohol base prep solution. This was allowed to thoroughly dry. Draping was then performed. Preoperative time-out was performed to confirm the site, the patient and the surgery. I began by using an 18 gauge spinal needle with a 30 mL syringe to aspirate two sites from the anterior subdeltoid bursa as well as posteriorly. This yielded 2 mL of fluid anteriorly and 1 mL of fluid posteriorly. There was no obvious andrea pus, but there was some thick serosanguineous fluid. I then inserted the arthroscope into the joints through a standard posterior working portal. Joint was thoroughly examined. There was a mild to moderate amount of synovitis in the joint. There were some grade 2 changes on the glenoid and grade 1 changes on the humeral head. Rotator cuff appeared intact. Subscapularis as well as biceps tendon both appeared intact and normal. Undersurface of the acromion was normal. Bare spot was normal. There was some mild to moderate labral fraying. Joint was thoroughly irrigated with normal saline as well as using a shaving instrument to take away any synovitis and thoroughly debride the joint. The joint was debrided using a shaving instrument inserted through an anterior portal. The portal was established through spinal needle localization just posterior to the biceps and through the rotator interval. The arthroscope was withdrawn and inserted into the subacromial space. Standard lateral working portal was then established. Using a combination of cautery and shaving instruments, a thorough bursectomy was performed. There was a severe amount of subacromial/subdeltoid bursitis that was all removed, especially anteriorly. Tissue samples were sent for this. Arthroscopy pictures were taken and saved onto the system. I then inserted the arthroscope into the lateral portal and completed the bursectomy posteriorly. It did appear that she had a previous subacromial decompression. Arthroscope was withdrawn. Joint thoroughly irrigated. The portal sites were closed with subcutaneous interrupted #3-0 Monocryl. Skin was cleaned with wet and dry dressing. 10 mL of 0.25% Marcaine was instilled in around the portal sites. Steri-Strips were applied. Adaptic, 4 x 8 gauze and ABD dressings with cloth tape were then placed over the shoulder. The patient was placed into a sling. Patient was transferred off the operating table and taken to the postanesthetic care unit in stable condition. All sponge, needle, and instrument counts were correct. No complications. Samples were sent, including two fluid samples and one tissue sample. Plan for the patient is to be admitted to the hospital at least 24 hours. I will obtain an infectious disease consult in the morning; I will put this in my note. I would like her to be readmitted under the hospitalist service. We will change the dressing tomorrow. My overall impression is that this may have been a high inflammatory reaction to the vaccine that could have gone into the subacromial space. I still have a low to moderate suspicion that this could still be infected given the inflammatory markers appearance on the MRI, as well as the fact that she was already on vancomycin for at least 12 hours prior to obtaining the culture samples, and this could still be providing a septic sample. I will follow the patient while admitted to the hospital.
[2019-04-05] MEDS ORDERED: LABETALOL HCL 100 MG/20 ML VIAL As Ordered ONE (18:42)
[2019-04-05] MEDS: LABETALOL HCL 100 MG/20 ML VIAL IV SCH ×2 (18:44→18:52)
--- NOTE | 2019-04-05 22:49 | PHACANCOPD ---
PHARMACY VANCOMYCIN DOSING Pt Demographics Demographics Patient Age:78 , Weight:79.800 , Gender: female Adjusted Body Weight Date: 04/05/19, Adjusted Body Weight: [66.12] Kg Vancomycin Vancomycin indication: SSTI LEFT SHOULDER Vancomycin Target Ranges: 15-20 mcg/ml Vancomycin Load Y/N: No Load Dose Date Time Vancomycin Load Dose: Date: Time: Vancomycin Dose Date: 04/05/19. Current Vancomycin Dose: [1 GM IV Q12H@12M] Date: 04/05/19. Current Vancomycin Dose: [1GM@18,THEN Q18@02] Intermittent Dosing?: No Labs Micro Microbiology 04/05/19 Gram Stain, Received Pending 04/05/19 Wound Culture, Received Pending 04/05/19 Anaerobic Culture, Received Pending 04/05/19 Gram Stain, Received Pending 04/05/19 Wound Culture, Received Pending 04/05/19 Anaerobic Culture, Received Pending 04/04/19 Blood Culture - Preliminary, Resulted No growth after 24 hours . All specim... 04/04/19 Blood Culture - Preliminary, Resulted No growth after 24 hours . All specim... Creatinine Clearance Date:04/05/19. Creatinine Clearance: [~49.9].CALCULATED Assessment and Plan Maintaining Current Dose?: No Reason for dose change: Trough too low Pharmacist Note Pharmacist Note Date: 04/05/19. Pharmacist note:Vancomycin trough drawn this evening reported as 3.0(goal=15-20).no SCR drawn this am,patient taken to OR today for left shoulder irrigation/debridement-aspirate cultures sent. Will adjust Vancomycin regimen to 1 gram IV [id number] to begin @ 12 mid tonight(3 hours after previous dose to get level to therapeutic range).Will continue to follow Date: 04/05/19. Pharmacist note:78YOF admitted w/ l.shoulder pain,swelling,cellulitis wt:79.8kg (ABW=66.12kg),ht:65",SCR:0.68, Calculated CRCL~49.9. Allergies/ADR: nitrofurantoin,nsaids,sulfa,pcn. Vancomycin 1 gram administered in ED 04/04@18:30, then will begin q18H regimen with first dose 04/05@0200(8 hours after 1st). trough is scheduled for this pm@1900(prior to the 3rd dose)-Will continue to monitor labs and make adjustments as necessary. PARTHA BAZZI PHARMACY Apr 05, 2019 22:48
[2019-04-06] MEDS: VANCOMYCIN HCL 1,000 MG, VIAL MATE ADAPTER 1 EACH in D5W 250 ML IV SCH ×2 (00:15→12:49)
[2019-04-06 00:30] VITALS: BP 155/86
[2019-04-06] MEDS: PERCOCET 5MG/325MG TAB PO PRN ×5 (01:21→22:22)
[2019-04-06 04:58] VITALS: BP 159/86
[2019-04-06 06:40] LABS: HEMATOCRIT 32.1 % (36.0-47.0); MEAN CORPUSCULAR HEMOGLOBIN 29.4 pg (27.0-33.0); MEAN CORPUSCULAR VOLUME 89.2 fl (80.0-96.0); PLATELET COUNT, AUTOMATED 154 10^3/uL (150-450); WHITE BLOOD COUNT 13.5 10^3/uL (4.0-10.0)
[2019-04-06 06:41] LABS: HEMOGLOBIN 10.6 g/dl (12.0-15.5)
[2019-04-06 06:56] LABS: BLOOD UREA NITROGEN 7 MG/DL (7-18); CALCIUM LEVEL 8.9 MG/DL (8.8-10.2); CARBON DIOXIDE LEVEL 27 MEQ/L (21-32); CHLORIDE LEVEL 100 MEQ/L (98-107); CREATININE FOR GFR 0.62 MG/DL (0.55-1.30); GLOMERULAR FILTRATION RATE > 60.0 (>39); GLUCOSE, FASTING 153 MG/DL (70-100); POTASSIUM SERUM 3.9 MEQ/L (3.5-5.1); SODIUM LEVEL 133 MEQ/L (136-145)
--- NOTE | 2019-04-06 07:47 | IPN ---
DATE: 04/06/2019 CHIEF COMPLAINT: Postoperative day 1 left shoulder arthroscopic irrigation and debridement. HISTORY OF PRESENT ILLNESS: This is a 78-year-old female who developed a large bursitis with increasing inflammatory markers with redness and swelling and pain of her left shoulder. We performed arthroscopic irrigation and debridement of the left shoulder last evening. She is doing well aside from some pain in the shoulder. She is here with, I believe, her daughter's . PHYSICAL EXAMINATION: This is a well-appearing 78-year-old female. She appears mildly uncomfortable. A bulky dressing in situ in the left upper extremity. Hand is warm and well perfused with normal sensation to the hand. Strong radial pulse. ASSESSMENT/PLAN: 78-year-old female. I would like to have an infectious disease consult to see if they suggest anything in regards to her antibiotic choice. I have overall low to moderate suspicion that this is an infect, and especially given the fact that her daughter told me after the surgery that she had something very similar with her left knee about 6 years ago. They performed an arthroscopic irrigation and debridement and cultures were negative. Despite this, she was on vancomycin for 6 weeks. I think perhaps this time we could consider being more aggressive and stepping her down to oral medications for a shorter period of time if the cultures were to be negative. Perhaps due to her platelet dysfunction, she could have had a small bleed into the subacromial space that precipitated a severe inflammatory reaction. We will followup with the cultures and I think that she should be in hospital for at least one more day to see how things go. Will change t he dressing as well and insure that her inflammatory markers are trending down.
[2019-04-06] MEDS: DULoxetine 30 MG CAP (CYMBALTA) PO SCH (09:41)
[2019-04-06 09:56] VITALS: BP 153/76
[2019-04-06 09:58] LABS: ERYTHROCYTE SEDIMENTATION RATE 67 mm/hr (0-30)
[2019-04-06] MEDS ORDERED: ACETAMINOPHEN TAB 650MG DOSE (2X325MG) PO PRN (10:00)
[2019-04-06] MEDS: LR 1,000 ML IV SCH ×3 (10:31→17:38)
[2019-04-06] MEDS: NS 1,000 ML IV SCH (11:14)
--- NOTE | 2019-04-06 12:53 | IPNPDOC ---
Date Seen The patient was seen on 04/06/19. Progress Note SUBJECTIVE: Patient s/p washout and debridement of L. shoulder yesterday evening. Reported soreness over the site but otherwise has no other complaints. Dressing appeared clean and dry this morning. OBJECTIVE PHYSICAL EXAMINATION: VITAL SIGNS: Please see below. General: No acute distress, Alert Eyes: Normal sclera, EOMI. HENT: Atraumatic, neck supple, moist mucous membranes Cardiovascular: Normal rate, normal rhythm. Pulmonary: Clear to auscultation b/l, no wheezing GI: Soft, nontender, nondistended Skin: Warm and dry. MSK: L. shoulder with overlying bandage/dressing clean and dry. Minimal ROM due to pain. Neuro: CN grossly intact. No focal deficits. Psych: oriented x 3 LABORATORY DATA, IMAGING STUDIES, MICROBIOLOGY: Please see below. DVT prophylaxis ordered?: SCDs L. shoulder MRI- IMPRESSION: Significant distention of the subacromial/subdeltoid bursa with fluid, and associated synovitis, possibly communicating with the glenohumeral joint. Adjacent edema within the deltoid and rotator cuff muscles. I cannot exclude infection and aspiration of the bursa may be warranted. Small full-thickness supraspinatus tear just posterior to the anterior leading margin, with moderate tendinopathy involving the remainder of the tendon. ASSESSMENT AND PLAN: 1. L. shoulder bursitis - Inflammatory vs. infectious. - s/p OR for arthroscopic irrigation and debridement 04/05 with orthopedic surgery. - c/w IV antibiotics for now. f/u cultures. - Pain control. ID consulted but likely wont be assessed until tomorrow, no ID available today. 2. Qualitative platelet defect - Follows with Dr. Yen in [place] every few years. - Last seen in 2017. s/p platelet pheresis prior to surgery. - continue to monitor for now. [facility]I&O Vital Signs Date Time Temp Pulse Resp B/P (MAP) Pulse Ox O2 Delivery O2 Flow Rate FiO2 04/06/19 09:56 97.7 102 20 153/76 (101) 96 04/05/19 19:43 2.0 04/04/19 22:17 Room Air I&O- Last 24 Hours up to 6 AM 04/06/19 06:00 Intake Total 1870 ml Output Total 1300 ml Balance 570 ml Laboratory Data 24H LABS Laboratory Tests 2 04/05/19 19:46: Vancomycin Level Trough 3.0L 04/06/19 06:22: Nucleated Red Blood Cells % (auto) 0.0, Erythrocyte Sedimentation Rate 67H, Anion Gap 6L, Glomerular Filtration Rate > 60.0, Calcium Level 8.9, C-Reactive Protein, Quantitative 15.50H CBC/BMP Laboratory Tests 04/06/19 06:22 Microbiology Microbiology 04/05/19 Gram Stain - Final, Resulted 04/05/19 Wound Culture, Resulted Pending 04/05/19 Anaerobic Culture, Resulted Pending 04/05/19 Gram Stain - Final, Resulted 04/05/19 Wound Culture, Resulted Pending 04/05/19 Anaerobic Culture, Resulted Pending 04/04/19 Blood Culture - Preliminary, Resulted No growth after 24 hours . All specim... 04/04/19 Blood Culture - Preliminary, Resulted No growth after 24 hours . All specim... MATHIEU BUI MD Apr 06, 2019 12:53
[2019-04-06 13:31] VITALS: BP 167/89
[2019-04-06] MEDS ORDERED: SENNA 8.6 MG TAB (SENOKOT) PO PRN (20:30)
[2019-04-06 21:11] VITALS: BP 172/92
--- NOTE | 2019-04-07 00:03 | PHACANCOPD ---
PHARMACY VANCOMYCIN DOSING Pt Demographics Demographics Patient Age:78 , Weight:79.800 , Gender: female Adjusted Body Weight Date: 04/05/19, Adjusted Body Weight: [66.12] Kg Vancomycin Vancomycin indication: SSTI LEFT SHOULDER Vancomycin Target Ranges: 15-20 mcg/ml Vancomycin Load Y/N: No Load Dose Date Time Vancomycin Load Dose: Date: Time: Vancomycin Dose Date: 04/05/19. Current Vancomycin Dose: [1 GM IV Q12H@12M] Date: 04/05/19. Current Vancomycin Dose: [1GM@18,THEN Q18@02] Intermittent Dosing?: No Labs Micro Microbiology 04/05/19 Gram Stain - Final, Resulted 04/05/19 Wound Culture, Resulted Pending 04/05/19 Anaerobic Culture, Resulted Pending 04/05/19 Gram Stain - Final, Resulted 04/05/19 Wound Culture, Resulted Pending 04/05/19 Anaerobic Culture, Resulted Pending 04/04/19 Blood Culture - Preliminary, Resulted No Growth after 48 hours. All Specime... 04/04/19 Blood Culture - Preliminary, Resulted No Growth after 48 hours. All Specime... Creatinine Clearance Date:04/05/19. Creatinine Clearance: [~49.9].CALCULATED Assessment and Plan Maintaining Current Dose?: Yes Reason for dose change: No Dose Change Pharmacist Note Pharmacist Note Date: 04/07/19. Pharmacist note:Tonight"s Vancomycin trough=10.3 : Will dose patient with an additional 500mg Vancomycin (total 1.5 grams for tonight) then will resume 1 gram IV Q12h dosing.-will continue to follow labs Date: 04/05/19. Pharmacist note:Vancomycin trough drawn this evening reported as 3.0(goal=15-20).no SCR drawn this am,patient taken to OR today for left shoulder irrigation/debridement-aspirate cultures sent. Will adjust Vancomycin regimen to 1 gram IV [id number] to begin @ 12 mid tonight(3 hours after previous dose to get level to therapeutic range).Will continue to follow Date: 04/05/19. Pharmacist note:78YOF admitted w/ l.shoulder pa in,swelling,cellulitis wt:79.8kg (ABW=66.12kg),ht:65",SCR:0.68, Calculated CRCL~49.9. Allergies/ADR: nitrofurantoin,nsaids,sulfa,pcn. Vancomycin 1 gram administered in ED 04/04@18:30, then will begin q18H regimen with first dose 04/05@0200(8 hours after 1st). trough is scheduled for this pm@1900(prior to the 3rd dose)-Will continue to monitor labs and make adjustments as necessary. PARTHA BAZZI PHARMACY Apr 07, 2019 00:03
[2019-04-07] MEDS: VANCOMYCIN HCL 1,000 MG, VIAL MATE ADAPTER 1 EACH in D5W 250 ML IV SCH ×2 (00:11→12:02)
[2019-04-07] MEDS ORDERED: VANCOMYCIN HCL 500 MG in D5W MINI-BAG PLUS 100 ML IV ONE (01:00)
[2019-04-07] MEDS: LR 1,000 ML IV SCH (02:31)
[2019-04-07] MEDS: PERCOCET 5MG/325MG TAB PO PRN ×2 (02:48→07:48)
[2019-04-07 06:04] VITALS: BP 170/91
[2019-04-07 06:58] LABS: HEMATOCRIT 29.4 % (36.0-47.0); HEMOGLOBIN 9.5 g/dl (12.0-15.5); MEAN CORPUSCULAR HEMOGLOBIN 29.2 pg (27.0-33.0); MEAN CORPUSCULAR HGB CONC 32.3 g/dl (32.0-36.5); MEAN CORPUSCULAR VOLUME 90.5 fl (80.0-96.0); PLATELET COUNT, AUTOMATED 170 10^3/uL (150-450); RED BLOOD COUNT 3.25 10^6/uL (4.00-5.40); WHITE BLOOD COUNT 13.9 10^3/uL (4.0-10.0)
[2019-04-07 07:21] LABS: BLOOD UREA NITROGEN 7 MG/DL (7-18); CALCIUM LEVEL 8.7 MG/DL (8.8-10.2); CARBON DIOXIDE LEVEL 29 MEQ/L (21-32); CHLORIDE LEVEL 99 MEQ/L (98-107); GLOMERULAR FILTRATION RATE > 60.0 (>39); GLUCOSE, FASTING 114 MG/DL (70-100); POTASSIUM SERUM 3.2 MEQ/L (3.5-5.1); SODIUM LEVEL 132 MEQ/L (136-145)
[2019-04-07] MEDS: DULoxetine 30 MG CAP (CYMBALTA) PO SCH (07:47)
[2019-04-07] MEDS ORDERED: POTASSIUM CHLORIDE 10 MEQ SR TABLET PO ONE (08:30)
[2019-04-07] MEDS: NS 1,000 ML IV SCH (10:33)
--- NOTE | 2019-04-07 19:20 | DS.PDOC ---
Discharge Summary General Date of Admission Apr 05, 2019 at 10:23 Date of Discharge 04/07/19 Discharge Summary PROCEDURES PERFORMED DURING STAY: L. shoulder irrigation and debridement ADMITTING DIAGNOSES: 1. L. shoulder bursitis 2. Arthritis 3. Platelet defect DISCHARGE DIAGNOSES: 1. L. shoulder bursitis 2. Arthritis 3. Platelet defect COMPLICATIONS/CHIEF COMPLAINT: Cellulitis Of Left Shoulder. HISTORY OF PRESENT ILLNESS: "This is a 78 years old white female with past medical history of arthritis meniscus problems. Patient received the diuretics. 4 days ago on the left shoulder and of the word pain started, which is slowly getting worse, etc., red, swollen and crit. I local temperature and patient came to ER for further workup." HOSPITAL COURSE: Patient underwent irrigation and debridement of the L. shoulder joint for bursitis and appear stable post op. She was maintained on vancomycin through course of admission. Blood as well as wound culture remained negative to date. Decision made to admit patient to ARU for physical therapy. Patient is discharged to ARU. Abx on hold, patient is to be evaluated by ID to assess need for further antibiotics. DISCHARGE MEDICATIONS: Please see below. ALLERGIES: Please see below. PHYSICAL EXAMINATION ON DISCHARGE: VITAL SIGNS: Please see below. VITAL SIGNS: Please see below. General: No acute distress, Alert Eyes: Normal sclera, EOMI. HENT: Atraumatic, neck supple, moist mucous membranes Cardiovascular: Normal rate, normal rhythm. Pulmonary: Clear to auscultation b/l, no wheezing GI: Soft, nontender, nondistended Skin: Warm and dry. MSK: L. shoulder with overlying bandage/dressing clean and dry. Minimal ROM due to pain. Neuro: CN grossly intact. No focal deficits. Psych: oriented x 3 LABORATORY DATA: Please see below. IMAGING: Shoulder MRI- IMPRESSION: Significant distention of the subacromial/subdeltoid bursa with fluid, and associated synovitis, possibly communicating with the glenohumeral joint. Adjacent edema within the deltoid and rotator cuff muscles. I cannot exclude infection and aspiration of the bursa may be warranted. Small full-thickness supraspinatus tear just posterior to the anterior leading margin, with moderate tendinopathy involving the remainder of the tendon. ACTIVITY: [As tolerated]. DIET: Regular DISCHARGE PLAN: c/w PT in ARU F/u ID recommendations regarding Abx f/u PCP post discharge from ARU DISPOSITION: 70 Xfer Other. DISCHARGE INSTRUCTIONS: c/w PT in ARU F/u ID recommendations regarding Abx f/u PCP post discharge from ARU ITEMS TO FOLLOWUP ON ON OUTPATIENT: None DISCHARGE CONDITION: [Stable]. TIME SPENT ON DISCHARGE: 32 minutes. Vital Signs/I&Os Vital Signs Date Time Temp Pulse Resp B/P (MAP) Pulse Ox O2 Delivery O2 Flow Rate FiO2 04/07/19 10:25 108 95 04/07/19 08:18 18 Room Air 04/07/19 06:04 97.4 170/91 (117) 04/05/19 19:43 2.0 I&O- Last 24 Hours up to 6 AM 04/07/19 06:00 Intake Total 2000 ml Output Total 400 ml Balance 1600 ml Laboratory Data Labs 24H Laboratory Tests 2 04/06/19 23:05: Vancomycin Level Trough 10.3 04/07/19 06:32: Nucleated Red Blood Cells % (auto) 0.0, Anion Gap 4L, Glomerular Filtration Rate > 60.0, Calcium Level 8.7L CBC/BMP Laboratory Tests 04/07/19 06:32 Microbiology Microbiology 04/05/19 Gram Stain - Final, Complete 04/05/19 Wound Culture - Final, Complete 04/05/19 Anaerobic Culture - Final, Complete 04/05/19 Gram Stain - Final, Complete 04/05/19 Wound Culture - Final, Complete 04/05/19 Anaerobic Culture - Final, Complete 04/04/19 Blood Culture - Preliminary, Resulted No Growth after 72 hours. All specime... 04/04/19 Blood Culture - Preliminary, Resulted No Growth after 72 hours. All specime... Discharge Medications Scheduled Calcium Carbonate/Vitamin D3 (Calcium 600-Vit D3 400 Tablet) 1 Each Tablet, 1 TAB PO DAILY, (Reported) Cholecalciferol (Vitamin D3) (Vitamin D3) 5,000 Unit Tablet, 5,000 UNIT PO DAILY, (Reported) Duloxetine Hcl (Duloxetine HCl) 30 Mg Capsule.dr, 30 MG PO DAILY, (Reported) Magnesium (Magnesium) 30 Mg Tablet, 60 MG PO DAILY, (Reported) Vit A/Vit C/Vit E/Zinc/Copper (Preservision Areds Tablet) 1 Each Tablet, 1 TAB PO DAILY, (Reported) Scheduled PRN Triamcinolone Acetonide (Nasacort) 10.8 Ml [place], 2 SPRAYS NA DAILY PRN for NASAL CONGESTION, (Reported) Zolpidem Tartrate (Ambien) 5 Mg Tablet, 5 MG PO QHS PRN for INSOMNIA, (Reported) Allergies Coded Allergies: Nitrate Analogues (Verified Allergy, Intermediate, REDDNESS IN FACE AND NECK, 04/04/19) Sulfa (Sulfonamide Antibiotics) (Verified Allergy, Intermediate, REDDNESS IN FACE AND NECK, 04/04/19) nitrofurantoin (Verified Allergy, Intermediate, REDDNESS IN FACE AND NECK, 04/04/19) NSAIDS (Non-Steroidal Anti-Inflamma (Verified Allergy, Unknown, 04/04/19) Penicillins (Verified Adverse Reaction, Intermediate, HANDS TINGLED, SYNCOPE, 04/04/19) MATHIEU BUI MD Apr 07, 2019 19:20
== END 2019-04-07 14:19 | DRG 988 ==
LOC: M ED 12:01 → M ED INP 12:02 → M MS4PR 04-05 00:55 → M ED INP 04-05 01:24 → M MS4PR 04-05 01:25 → OBSVTOIN 04-05 10:23 → M MS5PR 04-05 19:35
PROVIDERS: ADMIT Internal Medicine; ATTEND Student in an Organized Health Care Education/Training Program
PROC: 3E1U48Z Irrigation of Joints using Irrigating Substance, Percutaneous Endoscopic Approach (ICD-10-PCS; 2019-04-05)
PROC: 0RBK4ZZ Excision of Left Shoulder Joint, Percutaneous Endoscopic Approach (ICD-10-PCS; principal; 2019-04-05 14:00)
DX: T80.89XA Other complications following infusion, transfusion and therapeutic injection, initial encounter (principal); L03.114 Cellulitis of left upper limb; M71.112 Other infective bursitis, left shoulder; D69.1 Qualitative platelet defects; M19.90 Unspecified osteoarthritis, unspecified site; Z79.899 Other long term (current) drug therapy; Z88.2 Allergy status to sulfonamides; Z88.0 Allergy status to penicillin; Z88.6 Allergy status to analgesic agent; Z88.8 Allergy status to other drugs, medicaments and biological substances; Y84.8 Other medical procedures as the cause of abnormal reaction of the patient, or of later complication, without mention of misadventure at the time of the procedure

== ENCOUNTER 2019-04-07 10:45 | Inpatient (IN) | payer MEDICARE, OTHER ==
[~2019-04-07] VITALS: Ht 165.1 cm; Wt 80.3 kg
[~2019-04-07 10:45] MED LIST: AMBI5TAB PO; CALC1TAB8 PO; DULO1CAP5 PO; MAGN30TA PO; NASA1SPR; NATU1TAB5 PO; OCUVTAB4 PO
[2019-04-07 14:30] VITALS: BP 156/72
[2019-04-07] MEDS ORDERED: ONDANSETRON 4 MG TAB (S0181) PO PRN (15:15)
--- NOTE | 2019-04-07 15:40 | HPEPDOC ---
[employer] Operator Note DATE OF ADMISSION: 04-07-19 SOURCE OF ADMISSION INFORMATION: [facility] records CHIEF COMPLAINT: left shoulder bursitis with cellulitis HISTORY OF PRESENT ILLNESS: 78F pmh OA, vitamin D deficiency, qualitative platelet disorder who developed left shoulder pain and swelling with fever following a pneumonia vaccine and presented to [facility] on 04-04-19 and admitted for possible septic shoulder joint with cellulitis. MRI shoulder showed, Significant distention of the subacromi al/subdeltoid bursa with fluid, and associated synovitis, possibly communicating with the glenohumeral joint. Adjacent edema within the deltoid and rotator cuff muscles. She was started on IV vancomycin and evaluated by orthopedics who performed an arthroscopic irrigation and debridement on 04-05-19 with pre-op platelet infusion to prevent ct-operative excessive bleeding. She was then evaluated by therapy and noted to be below her prior level of function and deemed medically appropriate for discharge to ARU on 04-07-19. On initial visit patient and family reporting she has developed a shuffling gait over the last year with frequent falls. She is not followed by a neurologist. REVIEW OF SYSTEMS: The following is a completed review of systems and has been reviewed. Review of systems otherwise unremarkable. PAIN: Patient self reports left shoulder pain EYES: No recent vision changes EARS, NOSE, & THROAT: No throat pain, or dysphagia, or rhinorrhea CARDIOVASCULAR: Denies chest pain or palpitations PULMONARY: Denies shortness of breath GASTROINTESTINAL: Denies constipation/diarrhea GENITOURINARY: denies dysuria MUSCULOSKELETAL: left shoulder pain NEUROLOGICAL:no focal tremor or seizure activity HEMATOLOGICAL: +platelet disorder SKIN: left shoulder incision, and left arm cellulitis PSYCHIATRIC: Unremarkable All other review of systems found to be negative. PAST MEDICAL HISTORY: as per HPI PAST SURGICAL HISTORY: as per HPI ALLERGIES: Please see below. MEDICATIONS: Please see below. SOCIAL HISTORY: NO etoh, smoking, or illicit drugs DIET: regular PHYSICAL EXAMINATION: VITAL SIGNS: Please see below. GENERAL: Pleasant and cooperative. No acute distress. HEENT: PERRL. Extraocular movements intact. Clear conjunctiva +masked faces CARDIOVASCULAR: Regular rate and rhythm. No murmurs, rubs, or gallops LUNGS: Clear to auscultation bilaterally. No wheezes. No rhonchi ABDOMEN: Soft, nontender, nondistended. Positive bowel sounds. Normal active bowel sounds. NEUROLOGICAL: Alert and oriented times three. Cranial nerves II through XII grossly intact. Sensation grossly intact RUE tremor EXTREMITIES: 5\5 strength right upper extremities. 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 5/5 strength in left lower extremity. (-) melina's bilat SKIN: left shoulder incision without induration, left arm erythematous and swollen LABORATORY DATA: Please see below. IMAGING:Imaging documentation personally reviewed by record FUNCTIONAL STATUS: Premorbid: Independent with all activities of daily life as well as mobility On Admission: Minimum assistance for bathing, upper body dressing, bed chair and wheelchair transfers, toilet transfers, ambulation. GOALS: Mod-I for community ambulation with cane or no AD, Mod-I for functional transfers, dressing, bathing, ASSESSMENT:78-year-old F with past medical history of OA and platelet disorder who presents status post left shoulder bursitis with LUE cellulitis PLAN: 1. 1. Rehab: PT- strengthen/stretch/maintain ROM bilat LE, work on dynamic balance training OT- advance ADLs with limited use of LUE- focus on scapular stabilization exercises and PROM (to point of pain) of shoulder joint 2. Neuro: avoid deliriogenic medications- patient reporting shuffling gait with falls and RUE tremor, slightly masked face, will monitor and consider trial of Sinemet for Parkinson features 3. CArdio: no hx- medicine consulted to assist in management 4. Resp: encourage incentive spirometry 5. Ortho: Left shoulder bursitis s/p arthroscopic I&D, cultures did not grow bacteria, patient still with cellulitis s/p a few doses of IV Vancomycin, ID consulted 6. Heme: qualitative platelet disorder will monitor for bleeding 7. : monitor PVRs 8. DVT ppx: TEDs, no clinical suspicion for DVT at this time 9. GI ppx: protonix 10. Pain: tylenol, cymbalta, ice, tramadol prn 11. dispo: tbd POST ADMISSION PHYSICIAN EVALUATION: Medical and functional status: Description of medical status, medical assessment: As above. Rehabilitation diagnosis and current and prior cold morbid medical conditions as above. Risk of complications and plans to mitigate them as above. Description of functional status current status is as above. Prior status as above. Status compared to preadmission: There are no clinically significant differences between the patient's current status and the information described on the preadmission screening document. Treatment plan anticipated: Treatment plan is as described above. Required disciplines including physical therapy, occupational therapy, others as noted above. Intensity of services: 3 hours a day, 6 days a week. Special considerations: There are no specific special or safety considerations that would likely preclude immediate implementation of an intensive rehabilitation program or subsequently influence the plan of care. ATTESTATION: Considering all the information above, it is my best judgment that this patient requires intensive rehabilitation therapy as described above and an inpatient hospital environment due to the complexity of nursing, medical, and rehabilitation needs required by the patient. Furthermore, this patient can reasonably be expected to participate in an benefit from an inpatient rehabilitation stay with an interdisciplinary team approach to the delivery of rehabilitation care under the direction and supervision of rehabilitation physician. PROGNOSIS: Excellent ESTIMATED LENGTH OF STAY:7-10 days. PROJECTED DISCHARGE DESTINATION: Home with family support and any durable medical equipment required to increase functional safety and mobility. TIME SPENT COUNSELING AND COORDINATING INITIAL CARE: Greater than 70 minutes. Vital Signs Vital Sign - Last 24 Hours 04/07/19 14:30 Temp 98.4 Pulse 98 Resp 20 B/P (MAP) 156/72 (100) Pulse Ox 96 O2 Delivery Room Air Home Medications Scheduled Calcium Carbonate/Vitamin D3 (Calcium 600-Vit D3 400 Tablet) 1 Each Tablet, 1 TAB PO DAILY, (Reported) Cholecalciferol (Vitamin D3) (Vitamin D3) 5,000 Unit Tablet, 5,000 UNIT PO DAILY, (Reported) Duloxetine Hcl (Duloxetine HCl) 30 Mg Capsule.dr, 30 MG PO DAILY, (Reported) Magnesium (Magnesium) 30 Mg Tablet, 60 MG PO DAILY, (Reported) Vit A/Vit C/Vit E/Zinc/Copper (Preservision Areds Tablet) 1 Each Tablet, 1 TAB PO DAILY, (Reported) Scheduled PRN Triamcinolone Acetonide (Nasacort) 10.8 Ml [place], 2 SPRAYS NA DAILY PRN for NASAL CONGESTION, (Reported) Zolpidem Tartrate (Ambien) 5 Mg Tablet, 5 MG PO QHS PRN for INSOMNIA, (Reported) Allergies Coded Allergies: Nitrate Analogues (Verified Allergy, Intermediate, REDDNESS IN FACE AND NECK, 04/04/19) Sulfa (Sulfonamide Antibiotics) (Verified Allergy, Intermediate, REDDNESS IN FACE AND NECK, 04/04/19) nitrofurantoin (Verified Allergy, Intermediate, REDDNESS IN FACE AND NECK, 04/04/19) NSAIDS (Non-Steroidal Anti-Inflamma (Verified Allergy, Unknown, 04/04/19) Penicillins (Verified Adverse Reaction, Intermediate, HANDS TINGLED, SYNCOPE, 04/04/19) A-FIB/CHADSVASC A-FIB History Current/History of A-Fib/PAF?: No DHARA KENNEDY MD Apr 07, 2019 15:40
[2019-04-07] MEDS: CALCIUM/VITAMIN D 500 MG TAB PO SCH (16:46)
[2019-04-07] MEDS: ACETAMINOPHEN 500 MG TAB PO SCH ×2 (16:46→21:15)
[2019-04-07] MEDS: POTASSIUM CHLORIDE 10 MEQ SR TABLET PO SCH (18:16)
[2019-04-07] MEDS: MAGNESIUM GLUCONATE 500 MG TAB PO SCH (18:17)
[2019-04-07] MEDS: traMADol 50 MG TAB PO PRN (18:17)
[2019-04-07] MEDS: CEPHALEXIN 500 MG CAP PO SCH ×2 (18:29→21:15)
--- NOTE | 2019-04-07 18:48 | CR ---
DATE OF CONSULTATION: 04/07/2019 CONSULTATION REPORT FOR: Hospitalist. REASON FOR CONSULTATION: Evaluation of left shoulder pain with bursitis. HISTORY OF PRESENT ILLNESS: Mrs. Villa is a 78-year-old female who five days ago went to [facility] with her to get her flu shot. She was told by the pharmacist that she also needed a Pneumovax. The patient received a pneumonia shot in her left shoulder. She was getting ready to get her flu shot when her also developed am allergic reaction to his vaccines and was transported to the hospital for evaluation. After that, the patient developed significant shoulder pain within a couple of hours and difficulty with range of motion. She had no fever or chills. It progressively got worse until she presented to the emergency room on 04/04/2019 due to severe pain. The patient was noted to have an elevated white count. elevated sedimentation, C-reactive protein (CRP), and MRI was done which showed evidence of muscle edema with distension of the subdeltoid tissue in the bursa. There was concern of infected bursitis and therefore she was taken to the operating room (OR). She started on IV vancomycin and received one dose but she was taken for incision and drainage of the subacromial space by Dr. Gandhi. The patient received postoperative IV vancomycin for the past three days. She denies any nausea, vomiting or diarrhea. She was transferred to acute rehabilitation for rehabilitation. She also has reported developing a shuffling gait over the last year with frequent falls, but has not been evaluated by neurology. The patient has a platelet defect and therefore before surgery had a platelet transfusion. She has a previous history of a bleed in her left knee and postoperatively required IV vancomycin for six weeks even though the cultures had remained negative. PAST MEDICAL HISTORY: 1. Platelet disorder. 2. Vitamin D deficiency. 3. Osteoarthritis. 4. Depression. PAST SURGICAL HISTORY: Left knee arthroscopy complicated by bleeding. ALLERGIES: NONSTEROIDAL ANTIINFLAMMATORY DRUGS (NSAIDS), PENICILLIN, SULFA, NITROFURANTOIN. MEDICATIONS: - pantoprazole 40 mg daily - duloxetine 30 mg by mouth daily - docusate 100 mg twice a day - Senokot one tablet by mouth at bedtime - magnesium gluconate 250 mg daily - potassium 20 mEq daily - Tylenol as needed - tramadol as needed - Zofran as needed - Vancomycin was discontinued on 04/07/2019, the last dose was 12:02. PHYSICAL EXAMINATION: HEART: Normal S1, S2. No murmurs, rubs or gallops. LUNGS: Clear. No wheezes, rales or rhonchi. ABDOMEN: Soft, nontender. No hepatosplenomegaly. EXTREMITIES: No clubbing, cyanosis or edema. Left shoulder is swollen, limited abduction and elbow extension, normal swelling with ecchymosis around the shoulder surgery, tender to touch. LABORATORY DATA: White count 13.9, down from 14.2, hemoglobin 9.5, hematocrit 29.4, ESR 72. Sodium 132, potassium 3.2, chloride 99, bicarbonate 29, BUN 7, creatinine 0.6, glucose 114, calcium 8.7, CRP 15.5. Blood cultures: Two sets no growth after 72 hours on 04/04/2019. Wound cultures 04/05/2019: Two different specimens were sent in the OR and were negative. IMAGING STUDIES: Shoulder MRI showed muscle edema, osseous structures are normal, distension of the subacromial subdeltoid bursa measuring up to 2 cm and transverse thickness with synovial proliferation.. IMPRESSION: A 78-year-old female who presented with left shoulder swelling and pain immediately after a Pneumovax injection. The patient has a qualitative platelet deficiency and for five days developed worsening pain. MRI was suspicious for possible infected bursitis and therefore, the patient was taken to the operating room (OR). Cultures have remained negative. Clinically, the patient could have had a reaction to the Pneumovax, possibly a cellulitis although that was too soon after the injection. She has improved with IV vancomycin that has been discontinued. We will finish her treatment with oral Keflex for five days to finish a seven-day course. I doubt the patient has a septic joint or septic bursitis. It would still have cultured positive intraoperatively. No cell count was sent so that would not help me decide whether it was infected or not. Notes from Dr. Gandih have been reviewed and he did not suspect an infection. PLAN: Discontinue IV vancomycin. Start oral Keflex 500 mg by mouth four times a day for five days. Repeat complete blood count (CBC), C-reactive protein (CRP), erythrocyte sedimentation rate (ESR) next Thursday.
--- NOTE | 2019-04-07 19:28 | HPEPDOC ---
[facility] Medical History & Physical Date of Admission Apr 07, 2019 Date of Service: Apr 07, 2019 History and Physical CHIEF COMPLAINT: L. shoulder pain HISTORY OF PRESENT ILLNESS: Patient is a 78F with PMH OA and platelet defect who recently presented to the ER with complaints of L. shoulder pain for 5 days prior after getting a flu shot. Shoulder was noted to be swollen and severely tender. Was evaluated by ortho and treated for L. shoulder bursitis with antibiotics and underwent irrigation and washout with orthopedic surgery. She has been stable post op and now transferred to ARU for physical therapy. PAST MEDICAL HISTORY: Refer to [facility] PAST SURGICAL HISTORY: L. shoulder irrigation and debridement SOCIAL HISTORY: Denies tobacco, alcohol or illicit drug use. FAMILY HISTORY: Noncontributory ALLERGIES: Please see below. REVIEW OF SYSTEMS: 10 point review of system negative except as stated in HPI HOME MEDICATIONS: Please see below. PHYSICAL EXAMINATION: General: No acute distress, Alert Eyes: Normal sclera, EOMI. HENT: Atraumatic, neck supple, moist mucous membranes Cardiovascular: Normal rate, normal rhythm. Pulmonary: Clear to auscultation b/l, no wheezing GI: Soft, nontender, nondistended Skin: Warm and dry. MSK: L. shoulder with overlying bandage/dressing clean and dry. Minimal ROM due to pain. Neuro: CN grossly intact. No focal deficits. Psych: oriented x 3 LABORATORY DATA: See below MICROBIOLOGY: Please see below. ASSESSMENT AND PLAN: 1. L. shoulder bursitis - s/p irrigation and debridement with orthopedic surgery. - Pain control- pt wants to avoid strong pain medications/narcotics. on Tylenol and low dose tramadol currently. -PT per ARU protocols. - Seen by ID. Recommend oral Keflex 500 mg QID for 5 days and repeat CBC, CRP and ESR next thursday. 2. Qualitative platelet defects - Normally follows with Dr. Yen in [place] periodically. - No active issues at this time. Vital Signs Vital Signs Date Time Temp Pulse Resp B/P (MAP) Pulse Ox O2 Delivery O2 Flow Rate FiO2 04/07/19 18:17 20 04/07/19 14:30 98.4 98 156/72 (100) 96 Room Air Home Medications Scheduled Calcium Carbonate/Vitamin D3 (Calcium 600-Vit D3 400 Tablet) 1 Each Tablet, 1 TAB PO DAILY Cholecalciferol (Vitamin D3) (Vitamin D3) 5,000 Unit Tablet, 5,000 UNIT PO DAILY Duloxetine Hcl (Duloxetine HCl) 30 Mg Capsule.dr, 30 MG PO DAILY Magnesium (Magnesium) 30 Mg Tablet, 60 MG PO DAILY Vit A/Vit C/Vit E/Zinc/Copper (Preservision Areds Tablet) 1 Each Tablet, 1 TAB PO DAILY Scheduled PRN Triamcinolone Acetonide (Nasacort) 10.8 Ml [place], 2 SPRAYS NA DAILY PRN for NASAL CONGESTION Zolpidem Tartrate (Ambien) 5 Mg Tablet, 5 MG PO QHS PRN for INSOMNIA Allergies Coded Allergies: Nitrate Analogues (Verified Allergy, Intermediate, REDDNESS IN FACE AND NECK, 04/04/19) Sulfa (Sulfonamide Antibiotics) (Verified Allergy, Intermediate, REDDNESS IN FACE AND NECK, 04/04/19) nitrofurantoin (Verified Allergy, Intermediate, REDDNESS IN FACE AND NECK, 04/04/19) NSAIDS (Non-Steroidal Anti-Inflamma (Verified Allergy, Unknown, 04/04/19) Penicillins (Verified Adverse Reaction, Intermediate, HANDS TINGLED, SYNCOPE, 04/04/19) A-FIB/CHADSVASC A-FIB History Current/History of A-Fib/PAF?: No MATHIEU BUI MD Apr 07, 2019 19:28
[2019-04-07 20:00] VITALS: BP 150/69
[2019-04-07] MEDS: METOPROLOL TART 25 MG TABLET PO SCH (20:35)
[2019-04-07] MEDS: SENNA 8.6 MG TAB (SENOKOT) PO SCH (21:15)
[2019-04-07] MEDS: DOCUSATE SODIUM 100 MG CAP PO SCH (21:15)
[2019-04-08] MEDS: traMADol 50 MG TAB PO PRN ×4 (03:29→16:32)
[2019-04-08 06:00] VITALS: BP 169/75
[2019-04-08] MEDS ORDERED: traZODone 50 MG TAB PO ONE (06:00)
[2019-04-08] MEDS ORDERED: MORPHINE 30 MG SA TAB PO ONE (06:00)
[2019-04-08 07:51] LABS: BASO % 0.1 % (0.0-1.0); EOS % 0.1 % (0.0-3.0); HEMATOCRIT 29.8 % (36.0-47.0); HEMOGLOBIN 9.6 g/dl (12.0-15.5); LYMPH # 1.7 10^3/uL (1.5-5.0); LYMPH % 10.7 % (24.0-44.0); MEAN CORPUSCULAR HEMOGLOBIN 28.9 pg (27.0-33.0); MEAN CORPUSCULAR HGB CONC 32.2 g/dl (32.0-36.5); MEAN CORPUSCULAR VOLUME 89.8 fl (80.0-96.0); NEUTROPHILS # 10.1 10^3/uL (1.5-8.5); NEUTROPHILS % 63.4 % (36.0-66.0); PLATELET COUNT, AUTOMATED 207 10^3/uL (150-450); RED BLOOD COUNT 3.32 10^6/uL (4.00-5.40); WHITE BLOOD COUNT 15.9 10^3/uL (4.0-10.0)
[2019-04-08 08:09] LABS: MONO # 3.3 10^3/uL (0.0-0.8)
[2019-04-08 08:15] LABS: ALBUMIN 3.1 GM/DL (3.2-5.2); ALT/SGPT 38 U/L (12-78); BILIRUBIN,TOTAL 0.6 MG/DL (0.2-1.0); BLOOD UREA NITROGEN 6 MG/DL (7-18); CALCIUM LEVEL 8.8 MG/DL (8.8-10.2); CARBON DIOXIDE LEVEL 29 MEQ/L (21-32); CHLORIDE LEVEL 100 MEQ/L (98-107); CREATININE FOR GFR 0.51 MG/DL (0.55-1.30); GLOMERULAR FILTRATION RATE > 60.0 (>39); GLUCOSE, FASTING 118 MG/DL (70-100); POTASSIUM SERUM 3.7 MEQ/L (3.5-5.1); SODIUM LEVEL 134 MEQ/L (136-145); TOTAL PROTEIN 7.5 GM/DL (6.4-8.2)
[2019-04-08] MEDS: METOPROLOL TART 25 MG TABLET PO SCH ×2 (09:00→21:00)
[2019-04-08] MEDS: CEPHALEXIN 500 MG CAP PO SCH ×4 (09:13→21:00)
[2019-04-08] MEDS: PANTOPRAZOLE 40MG TAB (PROTONIX) PO SCH (09:13)
[2019-04-08] MEDS: DOCUSATE SODIUM 100 MG CAP PO SCH ×2 (09:13→21:00)
[2019-04-08] MEDS: DULoxetine 30 MG CAP (CYMBALTA) PO SCH (09:13)
[2019-04-08] MEDS: CALCIUM/VITAMIN D 500 MG TAB PO SCH (09:13)
[2019-04-08] MEDS: POTASSIUM CHLORIDE 10 MEQ SR TABLET PO SCH (09:13)
[2019-04-08] MEDS: ACETAMINOPHEN 500 MG TAB PO SCH ×3 (09:14→21:01)
[2019-04-08] MEDS: MAGNESIUM GLUCONATE 500 MG TAB PO SCH (09:16)
[2019-04-08] MEDS ORDERED: PERCOCET 5MG/325MG TAB PO PRN (12:00)
--- NOTE | 2019-04-08 12:02 | IPNPDOC ---
Date Seen The patient was seen on 04/08/19. Progress Note SUBJECTIVE: Patient reports having having periods of severe pain in the L. shoulder Has been hesitant about taking Percocet again but think that she may need it. No other complaints. Afebrile overnight. PT ongoing OBJECTIVE PHYSICAL EXAMINATION: General: No acute distress, Alert Eyes: Normal sclera, EOMI. HENT: Atraumatic, neck supple, moist mucous membranes Cardiovascular: Normal rate, normal rhythm. Pulmonary: Clear to auscultation b/l, no wheezing GI: Soft, nontender, nondistended Skin: Warm and dry. MSK: L. shoulder with overlying bandage/dressing clean and dry. Minimal ROM due to pain. Neuro: CN grossly intact. No focal deficits. Psych: oriented x 3 LABORATORY DATA: See below MICROBIOLOGY: Please see below. ASSESSMENT AND PLAN: 1. L. shoulder bursitis - s/p irrigation and debridement with orthopedic surgery. - Pain control- pt wants to avoid strong pain medications/narcotics if possible but agree to trying percocet again for severe pain. Current regimen Tylenol, Tramadol and Percocet. Cautious of total tylenol content. -PT per ARU protocols. - Seen by ID. Recommended oral Keflex 500 mg QID for 5 days and repeat CBC, CRP and ESR next thursday. 2. Qualitative platelet defects - Normally follows with Dr. Yen in [place] periodically. - No active issues at this time. VS, I&O, 24H, Fishbone Vital Signs/I&O Vital Signs Date Time Temp Pulse Resp B/P (MAP) Pulse Ox O2 Delivery O2 Flow Rate FiO2 04/08/19 09:10 18 04/08/19 09:00 118 169/75 04/08/19 07:41 Room Air 04/08/19 06:00 98.0 96 I&O- Last 24 Hours up to 6 AM 04/08/19 06:00 Intake Total 960 ml Balance 960 ml Laboratory Data 24H LABS Laboratory Tests 2 04/08/19 07:21: Immature Granulocyte % (Auto) 4.7H, Neutrophils (%) (Auto) 63.4, Lymphocytes (%) (Auto) 10.7L, Monocytes (%) (Auto) 21.0H, Eosinophils (%) (Auto) 0.1, Basophils (%) (Auto) 0.1, Neutrophils # (Auto) 10.1H, Lymphocytes # (Auto) 1.7, Monocytes # (Auto) 3.3H, Eosinophils # (Auto) 0.0, Basophils # (Auto) 0.0, Nucleated Red Blood Cells % (auto) 0.0, Anion Gap 5L, Glomerular Filtration Rate > 60.0, Calcium Level 8.8, Total Bilirubin 0.6, Aspartate Amino Transf (AST/SGOT) 41H, Alanine Aminotransferase (ALT/SGPT) 38, Alkaline Phosphatase 87, Total Protein 7.5, Albumin 3.1L, Albumin/Globulin Ratio 0.70L CBC/BMP Laboratory Tests 04/08/19 07:21 MATHIEU BUI MD Apr 08, 2019 12:02
[2019-04-08 13:56] VITALS: BP 153/67
--- NOTE | 2019-04-08 16:04 | IPN ---
DATE: 04/07/2019 Mrs. Villa feels better. She states she is doing physical therapy and her shoulder has been hurting her this does not like to take pain medication. She asked me to increase her tramadol dose of 50 mg daily which she has refused to take before. Percocet gave her confusion. She has had no fever or chills and feels pain and swelling has decreased in her arm. LABORATORY DATA: White count is 15.9, hemoglobin 9.6, hematocrit 29.8, platelets 207, sodium 134, potassium 3.7, chloride 100, bicarbonate 29, BUN 6, creatinine 0.51, glucose 118. PHYSICAL EXAMINATION: Left shoulder swollen ecchymosis all the way down to the biceps to the elbow. Range of motion in limited to the left shoulder to about 20 degrees. IMPRESSION: 1. Left shoulder bursitis probably not infected cultures negative on by mouth Keflex for superficial cellulitis of arm and the chest wall versus reaction to flu vaccine. The patient will finish 5 days of Keflex. Continue to monitor. 2. Ecchymosis, postoperative of the left shoulder probably worsened by qualitative platelet defect. Continue to monitor. PLAN: Keflex for 5 days. Repeat CBC, CRP, sed rate on Thursday.
[2019-04-08 20:15] VITALS: BP 128/56
[2019-04-08] MEDS: SENNA 8.6 MG TAB (SENOKOT) PO SCH (21:00)
[2019-04-09] MEDS: traMADol 50 MG TAB PO PRN ×4 (00:11→19:17)
[2019-04-09 06:10] VITALS: BP 142/85
--- NOTE | 2019-04-09 08:19 | IPN ---
DATE OF SERVICE: 04/09/2019 CHIEF COMPLAINT: Postoperative day approximately three for left shoulder arthroscopic irrigation and debridement. HISTORY OF PRESENT ILLNESS: 78 year old female who is seen on the acute rehab unit. She is doing well aside from some swelling in her upper extremity. She has a qualitative platelet defect and had quite a bit of swelling after her surgery. PHYSICAL EXAMINATION: Well-appearing, 78-year-old female. She is alert and oriented times three. Mood and affect pleasant and positive. Vital signs are stable. Temperature 97.9. Pulse rate 97. Blood pressure 142/85. Inspection of the wounds reveal no obvious redness, swelling or drainage. The redness in the anterior deltoid has come down nicely. Hand is warm and well perfused. Strong radial pulse. Normal sensation in the upper extremity. MICROBIOLOGY: So far has been negative. ASSESSMENT/PLAN: This is a 78-year-old female with a severe left shoulder bursitis, likely anterior soft tissue cellulitis who is responding appropriately to irrigation and debridement as well as antibiotics. We have stepped her down to oral Keflex. I have reviewed Dr. Mello's, the infectious disease specialist, note. I agree with her plan. We will repeat the inflammatory markers Thursday morning. She can do active passive and active assist range of motion of her shoulder, elbow, hand and wrist. I have encourage her to do these things. I will follow intermittently.
[2019-04-09] MEDS: METOPROLOL TART 25 MG TABLET PO SCH ×2 (09:00→21:00)
[2019-04-09] MEDS: CEPHALEXIN 500 MG CAP PO SCH ×4 (10:40→21:09)
[2019-04-09] MEDS: POTASSIUM CHLORIDE 10 MEQ SR TABLET PO SCH (10:40)
[2019-04-09] MEDS: DOCUSATE SODIUM 100 MG CAP PO SCH ×2 (10:41→21:09)
[2019-04-09] MEDS: MAGNESIUM GLUCONATE 500 MG TAB PO SCH (10:42)
[2019-04-09] MEDS: DULoxetine 30 MG CAP (CYMBALTA) PO SCH (10:42)
[2019-04-09] MEDS: CALCIUM/VITAMIN D 500 MG TAB PO SCH (10:42)
[2019-04-09] MEDS: ACETAMINOPHEN 500 MG TAB PO SCH ×3 (10:43→21:10)
[2019-04-09] MEDS: PANTOPRAZOLE 40MG TAB (PROTONIX) PO SCH (10:43)
--- NOTE | 2019-04-09 11:13 | IPNPDOC ---
Date Seen The patient was seen on 04/09/19. Progress Note SUBJECTIVE: Patient states that she has made some improvement but very slowly. Reportedly did not have a lot of pain yesterday afternoon/evening but became worse at night. Did finally take a Percocet. Stated she has not had a bowel movement in 3 days but does not feel comfortable. OBJECTIVE PHYSICAL EXAMINATION: General: No acute distress, Alert Eyes: Normal sclera, EOMI. HENT: Atraumatic, neck supple, moist mucous membranes Cardiovascular: Normal rate, normal rhythm. Pulmonary: Clear to auscultation b/l, no wheezing GI: Soft, nontender, nondistended Skin: Warm and dry. Multiple bruises throughout arms. Aging bruise on L. medial arm. MSK: L. shoulder with overlying bandage/dressing clean and dry. Minimal ROM due to pain. Neuro: CN grossly intact. No focal deficits. Psych: oriented x 3 LABORATORY DATA: See below MICROBIOLOGY: Please see below. ASSESSMENT AND PLAN: 1. L. shoulder bursitis - s/p irrigation and debridement with orthopedic surgery. - Pain control- pt wants to avoid strong pain medications/narcotics if possible but agree to trying percocet again for severe pain. Current regimen Tylenol, Tramadol and Percocet. - Cautious of total tylenol content. -PT per ARU protocols. - Seen by ID. Recommended oral Keflex 500 mg QID for 5 days and repeat CBC, CRP and ESR on Thursday. 2. Qualitative platelet defects - Normally follows with Dr. Yen in [place] periodically. - Multiple bruises on body but no bleeding noted. VS, I&O, 24H, Fishbone Vital Signs/I&O Vital Signs Date Time Temp Pulse Resp B/P (MAP) Pulse Ox O2 Delivery O2 Flow Rate FiO2 04/09/19 07:24 18 Room Air 04/09/19 06:10 97.9 97 142/85 (104) 92 I&O- Last 24 Hours up to 6 AM 04/09/19 05:59 Intake Total 1140 ml Output Total 0 ml Balance 1140 ml Laboratory Data 24H LABS Laboratory Tests 2 04/08/19 20:05: Bedside Glucose (Misc Panel) 120H 04/09/19 06:10: Bedside Glucose (Misc Panel) 89 MATHIEU BUI MD Apr 09, 2019 11:13
[2019-04-09 14:00] VITALS: BP 144/74
[2019-04-09 20:30] VITALS: BP 123/58
[2019-04-09] MEDS: SENNA 8.6 MG TAB (SENOKOT) PO SCH (21:10)
[2019-04-09] MEDS: MOM 30ML SUSPENSION UDC PO PRN (21:10)
[2019-04-09] MEDS: zolPIDEM TARTRATE 5 MG TAB PO PRN (21:30)
[2019-04-10] MEDS: traMADol 50 MG TAB PO PRN ×3 (01:13→18:02)
[2019-04-10 05:55] VITALS: BP 145/70
[2019-04-10 07:10] LABS: HEMATOCRIT 27.2 % (36.0-47.0); HEMOGLOBIN 8.7 g/dl (12.0-15.5); MEAN CORPUSCULAR HEMOGLOBIN 29.2 pg (27.0-33.0); MEAN CORPUSCULAR VOLUME 91.3 fl (80.0-96.0); PLATELET COUNT, AUTOMATED 225 10^3/uL (150-450); RED BLOOD COUNT 2.98 10^6/uL (4.00-5.40); WHITE BLOOD COUNT 16.4 10^3/uL (4.0-10.0)
[2019-04-10 07:43] LABS: BLOOD UREA NITROGEN 7 MG/DL (7-18); CALCIUM LEVEL 8.9 MG/DL (8.8-10.2); CARBON DIOXIDE LEVEL 31 MEQ/L (21-32); CHLORIDE LEVEL 98 MEQ/L (98-107); CREATININE FOR GFR 0.62 MG/DL (0.55-1.30); GLOMERULAR FILTRATION RATE > 60.0 (>39); GLUCOSE, FASTING 113 MG/DL (70-100); SODIUM LEVEL 133 MEQ/L (136-145)
[2019-04-10] MEDS: METOPROLOL TART 25 MG TABLET PO SCH ×2 (09:00→21:00)
[2019-04-10] MEDS: DULoxetine 30 MG CAP (CYMBALTA) PO SCH (09:33)
[2019-04-10] MEDS: DOCUSATE SODIUM 100 MG CAP PO SCH ×2 (09:33→21:02)
[2019-04-10] MEDS: CALCIUM/VITAMIN D 500 MG TAB PO SCH (09:33)
[2019-04-10] MEDS: PANTOPRAZOLE 40MG TAB (PROTONIX) PO SCH (09:33)
[2019-04-10] MEDS: MAGNESIUM GLUCONATE 500 MG TAB PO SCH (09:33)
[2019-04-10] MEDS: CEPHALEXIN 500 MG CAP PO SCH ×4 (09:33→21:02)
[2019-04-10] MEDS: POTASSIUM CHLORIDE 10 MEQ SR TABLET PO SCH (09:34)
[2019-04-10] MEDS: ACETAMINOPHEN 500 MG TAB PO SCH ×3 (09:36→21:01)
--- NOTE | 2019-04-10 11:31 | IPNPDOC ---
Date Seen The patient was seen on 04/10/19. Progress Note SUBJECTIVE: Patient states that her shoulder is slightly better and her ROM have improved. Sleep better at night with intermittent pain. Constipated. OBJECTIVE PHYSICAL EXAMINATION: General: No acute distress, Alert Eyes: Normal sclera, EOMI. HENT: Atraumatic, neck supple, moist mucous membranes Cardiovascular: Normal rate, normal rhythm. Pulmonary: Clear to auscultation b/l, no wheezing GI: Soft, nontender, nondistended Skin: Warm and dry. Multiple bruises throughout arms. Aging large bruise on L. medial arm. MSK: L. shoulder with overlying bandage/dressing clean and dry. Minimal ROM due to pain. Neuro: CN grossly intact. No focal deficits. Psych: oriented x 3 LABORATORY DATA: See below MICROBIOLOGY: Please see below. ASSESSMENT AND PLAN: 1. L. shoulder bursitis - s/p irrigation and debridement with orthopedic surgery. - Pain control- pt wants to avoid strong pain medications/narcotics if possible but agree to trying percocet again for severe pain. - Current regimen Tylenol, Tramadol and Percocet. - Cautious of total tylenol content. -PT per ARU protocols. - Seen by ID. Recommended oral Keflex 500 mg QID for 5 days and repeat CBC, CRP and ESR on Thursday. 2. Qualitative platelet defects - Normally follows with Dr. Yen in [place] periodically. - Multiple bruises on body but no bleeding noted. VS, I&O, 24H, Fishbone Vital Signs/I&O Vital Signs Date Time Temp Pulse Resp B/P (MAP) Pulse Ox O2 Delivery O2 Flow Rate FiO2 04/10/19 07:32 18 Room Air 04/10/19 05:55 97.5 107 145/70 (95) 95 I&O- Last 24 Hours up to 6 AM 04/10/19 06:00 Intake Total 1790 ml Output Total 0 ml Balance 1790 ml Laboratory Data 24H LABS Laboratory Tests 2 04/09/19 12:15: Bedside Glucose (Misc Panel) 116H 04/09/19 17:54: Bedside Glucose (Misc Panel) 124H 04/09/19 19:46: Bedside Glucose (Misc Panel) 126H 04/10/19 05:42: Bedside Glucose (Misc Panel) 123H 04/10/19 07:00: Nucleated Red Blood Cells % (auto) 0.0, Anion Gap 4L, Glomerular Filtration Rate > 60.0, Calcium Level 8.9 CBC/BMP Laboratory Tests 04/10/19 07:00 MATHIEU BUI MD Apr 10, 2019 11:31
[2019-04-10 14:00] VITALS: BP 128/69
[2019-04-10] MEDS: MIRALAX *UNIT DOSE* 17GM PACKET PO PRN (18:02)
[2019-04-10 20:00] VITALS: BP 185/80
[2019-04-10] MEDS: SENNA 8.6 MG TAB (SENOKOT) PO SCH (21:02)
[2019-04-10 21:05] VITALS: BP 160/90
[2019-04-10] MEDS: MOM 30ML SUSPENSION UDC PO PRN (21:26)
[2019-04-11] MEDS: traMADol 50 MG TAB PO PRN ×3 (00:13→12:03)
[2019-04-11 06:00] VITALS: BP 177/81
[2019-04-11 06:59] LABS: HEMATOCRIT 27.8 % (36.0-47.0); HEMOGLOBIN 8.8 g/dl (12.0-15.5); MEAN CORPUSCULAR HEMOGLOBIN 28.9 pg (27.0-33.0); MEAN CORPUSCULAR HGB CONC 31.7 g/dl (32.0-36.5); MEAN CORPUSCULAR VOLUME 91.1 fl (80.0-96.0); PLATELET COUNT, AUTOMATED 253 10^3/uL (150-450); RED BLOOD COUNT 3.05 10^6/uL (4.00-5.40); WHITE BLOOD COUNT 16.7 10^3/uL (4.0-10.0)
[2019-04-11 07:31] LABS: BLOOD UREA NITROGEN 9 MG/DL (7-18); CALCIUM LEVEL 8.9 MG/DL (8.8-10.2); CARBON DIOXIDE LEVEL 29 MEQ/L (21-32); CHLORIDE LEVEL 98 MEQ/L (98-107); CREATININE FOR GFR 0.59 MG/DL (0.55-1.30); GLOMERULAR FILTRATION RATE > 60.0 (>39); GLUCOSE, FASTING 112 MG/DL (70-100); POTASSIUM SERUM 3.7 MEQ/L (3.5-5.1); SODIUM LEVEL 133 MEQ/L (136-145)
[2019-04-11] MEDS: METOPROLOL TART 25 MG TABLET PO SCH (09:00)
[2019-04-11 09:01] LABS: ERYTHROCYTE SEDIMENTATION RATE > 140 mm/hr (0-30)
[2019-04-11] MEDS: CALCIUM/VITAMIN D 500 MG TAB PO SCH (09:05)
[2019-04-11] MEDS: ACETAMINOPHEN 500 MG TAB PO SCH ×3 (09:06→20:39)
[2019-04-11] MEDS: DOCUSATE SODIUM 100 MG CAP PO SCH ×2 (09:06→20:38)
[2019-04-11] MEDS: POTASSIUM CHLORIDE 10 MEQ SR TABLET PO SCH (09:06)
[2019-04-11] MEDS: MAGNESIUM GLUCONATE 500 MG TAB PO SCH (09:06)
[2019-04-11] MEDS: PANTOPRAZOLE 40MG TAB (PROTONIX) PO SCH (09:07)
[2019-04-11] MEDS: CEPHALEXIN 500 MG CAP PO SCH ×4 (09:07→20:39)
[2019-04-11] MEDS: DULoxetine 30 MG CAP (CYMBALTA) PO SCH (09:07)
--- NOTE | 2019-04-11 13:53 | IPNPDOC ---
Date Seen The patient was seen on 04/11/19. Progress Note SUBJECTIVE: Patient reports continued improvement in L. shoulder ROM despite still having pain. L. arm swelling also reported had been improving, but hematoma on L. upper medial surface appear to be larger. Patient's BP has been noted to be intermittently elevated but worry about taking metoprolol due to possible sensitivity to medications/side effects. BP varies between 120-150s with periods into 170s systolic. WBC 16.4->16.7. Constipation persistent despite current bowel regimen OBJECTIVE PHYSICAL EXAMINATION: General: No acute distress, Alert Eyes: Normal sclera, EOMI. HENT: Atraumatic, neck supple, moist mucous membranes Cardiovascular: Normal rate, normal rhythm. Pulmonary: Clear to auscultation b/l, no wheezing GI: Soft, nontender, nondistended Skin: Warm and dry. Multiple bruises throughout arms. Aging large bruise on L. medial arm. MSK: L. shoulder with overlying bandage/dressing clean and dry. Improving ROM, swelling improving. Neuro: CN grossly intact. No focal deficits. Psych: oriented x 3 LABORATORY DATA: See below MICROBIOLOGY: Please see below. ASSESSMENT AND PLAN: 1. L. shoulder bursitis - s/p irrigation and debridement with orthopedic surgery. - Pain control- pt wants to avoid strong pain medications/narcotics if possible but agree to trying percocet again for severe pain. - Current regimen Tylenol, Tramadol and Percocet. - Cautious of total tylenol content. - PT per ARU protocols. - Seen by ID. Recommended oral Keflex 500 mg QID for 5 days. - Leukocytosis persistent. CRP and ESR elevated, slightly higher than previous. 2. Qualitative platelet defects - Normally follows with Dr. Yen in [place] periodically. - Multiple bruises on body but no bleeding noted. - Platelets has been stable >200. Touch base with Dr. Yen if L. arm hematoma does not improve. 3. HTN - BP has been labile between 120-150s with periods into 170s systolic. - Presumably 2/2 pain but suspect that patient likely at baseline somewhat elevated. - Patient hesitant about starting anti-hypertensive at this time due to possible side effects, has been refusing metoprolol. - Discussed in detail with patient and family, will see how her BP runs today with Tramadol ordered standing instead of PRN and will discuss further tomorrow base on BP from now until then. 4. Constipation - Persistent despite current regimen. - Start on Lactulose to see if it will help. VS, I&O, 24H, Fishbone Vital Signs/I&O Vital Signs Date Time Temp Pulse Resp B/P (MAP) Pulse Ox O2 Delivery O2 Flow Rate FiO2 04/11/19 12:03 16 04/11/19 09:00 94 177/81 04/11/19 06:00 98.4 97 Room Air I&O- Last 24 Hours up to 6 AM 04/11/19 06:00 Intake Total 1560 ml Balance 1560 ml Laboratory Data 24H LABS Laboratory Tests 2 04/10/19 17:27: Bedside Glucose (Misc Panel) 130H 04/10/19 20:23: Bedside Glucose (Misc Panel) 115H 04/11/19 06:38: Nucleated Red Blood Cells % (auto) 0.0, Erythrocyte Sedimentation Rate > 140H, Anion Gap 6L, Glomerular Filtration Rate > 60.0, Calcium Level 8.9, C-Reactive Protein, Quantitative 17.80H CBC/BMP Laboratory Tests 04/11/19 06:38 MATHIEU BUI MD Apr 11, 2019 13:53
[2019-04-11 14:00] VITALS: BP 185/83
[2019-04-11] MEDS: LACTULOSE 20 GM/30 ML SYRUP UD PO SCH (17:34)
[2019-04-11] MEDS: traMADol 50 MG TAB PO SCH (17:34)
--- NOTE | 2019-04-11 17:47 | IPN ---
DATE: 04/11/2019 I was called by hospitalist, Dr. Casas, to evaluate the patient's continued elevated white count and C-reactive protein (CRP). The patient is clinically improving. She states her shoulder pain is better but she still has a lot of pain. She takes about four tramadol a day. She is also bloated and constipated and that is making her uncomfortable. She has had no fever or chills. PHYSICAL EXAMINATION: HEART: Normal S1, S2. No murmurs. LUNGS: Clear. No wheezes, rales or rhonchi. ABDOMEN: Soft, nontender, distended. Left shoulder with Steri-Strips in place with dry bloody drainage. There is still significant ecchymosis that drains all the way to her breast, but swelling in the arm has markedly improved. Range of motion has improved as well, passively about 40 degrees. IMPRESSION: 1. Left shoulder bursitis, status post incision and drainage with culture negative. The patient on oral Keflex, currently day number five with persistently elevated white cells, C-reactive protein (CRP) and sedimentation rate which is a little concerning. Even though clinically the patient has improved, we will continue to monitor. 2. Ecchymosis around incision site. Probably a little more traumatic than only related to surgery. LABORATORY DATA: White count 16.7, hemoglobin 8.8, hematocrit 27.8, platelets 253. ESR more than 140. Sodium 133, potassium 3.7, chloride 98, bicarbonate 29, BUN 9, creatinine 0.59, glucose 112, calcium 8.9, CRP 17.8, previously 16. IMPRESSION: Left shoulder bursitis. Culture negative. Currently on Keflex for a superficial cellulitis. PLAN Should expect trending C-reactive protein (CRP) and sedimentation rate down. If CRP and white count continue to increase, I would order a left shoulder ultrasound to rule out infection. [facility]
[2019-04-11 20:15] VITALS: BP 174/79
[2019-04-11] MEDS: SENNA 8.6 MG TAB (SENOKOT) PO SCH (20:39)
[2019-04-11] MEDS: zolPIDEM TARTRATE 5 MG TAB PO PRN (20:39)
[2019-04-12] MEDS: traMADol 50 MG TAB PO SCH ×3 (05:35→17:41)
[2019-04-12 05:55] VITALS: BP 157/80
[2019-04-12 06:49] LABS: HEMATOCRIT 26.3 % (36.0-47.0); HEMOGLOBIN 8.4 g/dl (12.0-15.5); MEAN CORPUSCULAR HEMOGLOBIN 28.8 pg (27.0-33.0); MEAN CORPUSCULAR HGB CONC 31.9 g/dl (32.0-36.5); MEAN CORPUSCULAR VOLUME 90.1 fl (80.0-96.0); PLATELET COUNT, AUTOMATED 243 10^3/uL (150-450); RED BLOOD COUNT 2.92 10^6/uL (4.00-5.40); WHITE BLOOD COUNT 15.4 10^3/uL (4.0-10.0)
[2019-04-12 07:13] LABS: BLOOD UREA NITROGEN 9 MG/DL (7-18); CALCIUM LEVEL 9.2 MG/DL (8.8-10.2); CARBON DIOXIDE LEVEL 29 MEQ/L (21-32); CHLORIDE LEVEL 99 MEQ/L (98-107); CREATININE FOR GFR 0.65 MG/DL (0.55-1.30); GLOMERULAR FILTRATION RATE > 60.0 (>39); GLUCOSE, FASTING 107 MG/DL (70-100); POTASSIUM SERUM 3.9 MEQ/L (3.5-5.1); SODIUM LEVEL 134 MEQ/L (136-145)
[2019-04-12] MEDS: MAGNESIUM GLUCONATE 500 MG TAB PO SCH (09:15)
[2019-04-12] MEDS: LACTULOSE 20 GM/30 ML SYRUP UD PO SCH ×2 (09:16→16:43)
[2019-04-12] MEDS: DOCUSATE SODIUM 100 MG CAP PO SCH ×2 (09:16→21:00)
[2019-04-12] MEDS: ACETAMINOPHEN 500 MG TAB PO SCH ×3 (09:17→21:20)
[2019-04-12] MEDS: PANTOPRAZOLE 40MG TAB (PROTONIX) PO SCH (09:18)
[2019-04-12] MEDS: CALCIUM/VITAMIN D 500 MG TAB PO SCH (09:18)
[2019-04-12] MEDS: DULoxetine 30 MG CAP (CYMBALTA) PO SCH (09:18)
[2019-04-12] MEDS: CEPHALEXIN 500 MG CAP PO SCH ×2 (09:18→12:10)
[2019-04-12] MEDS: POTASSIUM CHLORIDE 10 MEQ SR TABLET PO SCH (09:18)
[2019-04-12 14:00] VITALS: BP 140/68
--- NOTE | 2019-04-12 15:55 | IPNPDOC ---
PM&R Progress Note DATE OF SERVICE: Apr 11, 2019 Supply Coordinator Progress Note Subjective: Patient reporting her left shoulder feels less stiff and less painful overall. She is wondering what the goals are for her stay here in rehab. Daughter bedside and asking about Parkinson's and wants to wait to trial Sinemet until she discusses with the whole family. REVIEW OF SYSTEMS: The following is a completed review of systems and has been reviewed. Review of systems otherwise unremarkable. PAIN: Patient self reports left shoulder pain EYES: No recent vision changes EARS, NOSE, & THROAT: No throat pain, or dysphagia, or rhinorrhea CARDIOVASCULAR: Denies chest pain or palpitations PULMONARY: Denies shortness of breath GASTROINTESTINAL: Denies constipation/diarrhea GENITOURINARY: denies dysuria MUSCULOSKELETAL: left shoulder pain NEUROLOGICAL:no seizure activity, +RUE tremor HEMATOLOGICAL: +platelet disorder SKIN: left shoulder incision, and left arm cellulitis PSYCHIATRIC: Unremarkable All other review of systems found to be negative. PHYSICAL EXAMINATION: VITAL SIGNS: Please see below. GENERAL: Pleasant and cooperative. No acute distress. HEENT: PERRL. Extraocular movements intact. Clear conjunctiva +masked faces CARDIOVASCULAR: Regular rate and rhythm. No murmurs, rubs, or gallops LUNGS: Clear to auscultation bilaterally. No wheezes. No rhonchi ABDOMEN: Soft, nontender, nondistended. Positive bowel sounds. Normal active bow el sounds. NEUROLOGICAL: Alert and oriented times three. Cranial nerves II through XII grossly intact. Sensation grossly intact RUE tremor EXTREMITIES: 5\5 strength right upper extremities. 5/5 left wrist extenion, finger abduction, building pressure washer *limited due to recent shoulder surgery and cellulitis 5 \5 strength right lower extremity. 5/5 strength in left lower extremity. (-) melina's bilat SKIN: left shoulder incision without induration, left arm erythematous and mildly swollen, +ecchymosis ASSESSMENT:78-year-old F with past medical history of OA and platelet disorder who presents status post left shoulder bursitis with LUE cellulitis PLAN: 1. 1. Rehab: PT- strengthen/stretch/maintain ROM bilat LE, work on dynamic balance training OT- advance ADLs with limited use of LUE- focus on scapular stabilization exercises and PROM (to point of pain) of shoulder joint 2. Neuro: avoid deliriogenic medications- patient reporting shuffling gait with falls and RUE tremor, slightly masked face, will monitor and consider trial of Sinemet for Parkinson features 3. CArdio: no hx- medicine consulted to assist in management, recs apprecaited -patient with elevated BPs, had ordered metoprolol on admission, family and patient requesting to wait to see if better pain management helps alleviate high BPs and not ready to initiate now 4. Resp: encourage incentive spirometry 5. Ortho: Left shoulder bursitis s/p arthroscopic I&D, cultures did not grow bacteria, patient with improving cellulitis s/p a few doses of IV Vancomycin, ID consulted, switched to Keflex, wbc essentially stable at 16 with overall improvement in pain and ROM, will monitor CRP/ESR, ID recs appreciated 6. Heme: qualitative platelet disorder will monitor for bleeding-stable 7. : monitor PVRs 8. DVT ppx: TEDs, no clinical suspicion for DVT at this time 9. GI ppx: protonix 10. Pain: tylenol, cymbalta, ice, tramadol standing 11. dispo: tbd Allergies Coded Allergies: Nitrate Analogues (Verified Allergy, Intermediate, REDDNESS IN FACE AND NECK, 04/04/19) Sulfa (Sulfonamide Antibiotics) (Verified Allergy, Intermediate, REDDNESS IN FACE AND NECK, 04/04/19) nitrofurantoin (Verified Allergy, Intermediate, REDDNESS IN FACE AND NECK, 04/04/19) NSAIDS (Non-Steroidal Anti-Inflamma (Verified Allergy, Unknown, 04/04/19) Penicillins (Verified Adverse Reaction, Intermediate, HANDS TINGLED, SYNCOPE, 04/04/19) Vital Signs Vital Signs Date Time Temp Pulse Resp B/P (MAP) Pulse Ox O2 Delivery O2 Flow Rate FiO2 04/12/19 12:11 18 04/12/19 05:55 98.2 107 157/80 (105) 95 Room Air Laboratory Data CBC/BMP Laboratory Tests 04/12/19 06:30 Labs 24H Laboratory Tests 2 04/12/19 06:30: Nucleated Red Blood Cells % (auto) 0.0, Anion Gap 6L, Glomerular Filtration Rate > 60.0, Calcium Level 9.2, C-Reactive Protein, Quantitative 16.00H Current Medications Current Medications Current Medications Medications (Trade) Dose Ordered Sig/Arley Route PRN Reason Start Time Stop Time Status Last Admin Dose Admin Acetaminophen (Tylenol Tab) 1,000 mg TID PO 04/07/19 17:00 04/12/19 09:17 Calcium/Vitamin D (Oscal D) 1,000 mg DAILY PO 04/07/19 17:00 04/12/19 09:18 Cephalexin Monohydrate (Keflex) 500 mg QID PO 04/07/19 17:00 04/12/19 16:59 04/12/19 12:10 Docusate Sodium (Colace) 100 mg BID PO 04/07/19 21:00 04/12/19 09:16 Duloxetine HCl (Cymbalta) 30 mg DAILY PO 04/08/19 09:00 04/12/19 09:18 Lactulose (Cephulac) 30 ml DAILY PO 04/11/19 14:00 04/11/19 17:34 Magnesium Gluconate (Magnesium Gluconate) 250 mg DAILY PO 04/07/19 18:00 04/12/19 09:15 Magnesium Hydroxide (Milk Of Magnesia) 30 ml BIDP PRN PO CONSTIPATION 04/09/19 11:15 04/10/19 21:26 Metoprolol Tartrate (Lopressor) 25 mg BID PO 04/07/19 21:00 04/11/19 13:40 DC Ondansetron HCl (Zofran) 4 mg Q6HP PRN PO NAUSEA 04/07/19 15:15 Oxycodone/ Acetaminophen (Percocet 5mg/ 325mg Tablet) 1 tab Q6HP PRN PO SEVERE PAIN (PS 8-10) 04/08/19 12:00 04/09/19 06:54 Pantoprazole Sodium (Protonix) 40 mg DAILY PO 04/08/19 09:00 04/12/19 09:18 Polyethylene Glycol (Miralax) 1 pkt BIDP PRN PO constipation 04/10/19 11:30 04/10/19 18:02 Potassium Chloride (Micro-K Extencaps) 20 meq DAILY PO 04/07/19 18:00 04/12/19 09:18 Senna (Senokot) 1 tab QHS PO 04/07/19 21:00 04/11/19 20:39 Tramadol HCl (Ultram) 25 mg Q4HP PRN PO MODERATE PAIN (PS 5-7) 04/07/19 16:15 04/08/19 15:31 DC 04/08/19 12:13 Tramadol HCl (Ultram) 50 mg Q6HP PRN PO MODERATE PAIN (PS 5-7) 04/08/19 15:30 04/11/19 12:50 DC 04/11/19 12:03 Tramadol HCl (Ultram) 50 mg TID@0600,1200,1800 PO 04/11/19 18:00 04/12/19 12:11 Zolpidem Tartrate (Ambien) 5 mg QHSP PRN PO INSOMNIA 04/07/19 15:15 04/11/19 20:39 DHARA KENNEDY MD Apr 12, 2019 15:55
--- NOTE | 2019-04-12 16:03 | IPNPDOC ---
PM&R Progress Note DATE OF SERVICE: Apr 12, 2019 Virtualization Architect Progress Note Subjective: Patient reporting she is feeling ok today and would like to try starting Sinemet and blood pressure medications. REVIEW OF SYSTEMS: The following is a completed review of systems and has been reviewed. Review of systems otherwise unremarkable. PAIN: Patient self reports left shoulder pain EYES: No recent vision changes EARS, NOSE, & THROAT: No throat pain, or dysphagia, or rhinorrhea CARDIOVASCULAR: Denies chest pain or palpitations PULMONARY: Denies shortness of breath GASTROINTESTINAL: Denies constipation/diarrhea GENITOURINARY: denies dysuria MUSCULOSKELETAL: left shoulder pain NEUROLOGICAL:no seizure activity, +RUE tremor HEMATOLOGICAL: +platelet disorder SKIN: left shoulder incision, and left arm cellulitis PSYCHIATRIC: Unremarkable All other review of systems found to be negative. PHYSICAL EXAMINATION: VITAL SIGNS: Please see below. GENERAL: Pleasant and cooperative. No acute distress. HEENT: PERRL. Extraocular movements intact. Clear conjunctiva +masked faces CARDIOVASCULAR: Regular rate and rhythm. No murmurs, rubs, or gallops LUNGS: Clear to auscultation bilaterally. No wheezes. No rhonchi ABDOMEN: Soft, nontender, nondistended. Positive bowel sounds. Normal active bowel sounds. NEUROLOGICAL: Alert and oriented times three. Cranial nerves II through XII grossly intact. Sensation grossly intact RUE tremor EXTREMITIES: 5\5 strength right upper extremities. 5/5 left wrist extenion, finger abduction, cupola tender helper *limited due to recent shoulder surgery and cellulitis 5 \5 strength right lower extremity. 5/5 strength in left lower extremity. (-) melina's bilat SKIN: left shoulder incision without induration, left arm erythematous and mildly swollen, +ecchymosis ASSESSMENT:78-year-old F with past medical history of OA and platelet disorder who presents status post left shoulder bursitis with LUE cellulitis PLAN: 1. 1. Rehab: PT- strengthen/stretch/maintain ROM bilat LE, work on dynamic balance training OT- advance ADLs with limited use of LUE- focus on scapular stabilization exercises and PROM (to point of pain) of shoulder joint 2. Neuro: avoid deliriogenic medications- patient reporting shuffling gait with falls and RUE tremor, slightly masked face -discussed with family and patient, agred to trial Sinemet while here, will start 25-100 half tab TID and monitor -CTH ordered to rule out hydrocephalus -will refer to outpatient neurology 3. CArdio: no hx- medicine consulted to assist in management, recs apprecaited -patient with elevated BPs,family initialy hesitant to start meds, today agreed to trial Metoprolol- 25mg qh ordered with holding parameters 4. Resp: encourage incentive spirometry 5. Ortho: Left shoulder bursitis s/p arthroscopic I&D, cultures did not grow bacteria, patient with improving cellulitis s/p a few doses of IV Vancomycin, ID consulted, switched to Keflex, wbc improving overall improvement in pain and ROM, will monitor CRP/ESR, ID recs appreciated 6. Heme: qualitative platelet disorder will monitor for bleeding-stable 7. : monitor PVRs 8. DVT ppx: TEDs, no clinical suspicion for DVT at this time 9. GI ppx: protonix 10. Pain: tylenol, cymbalta, ice, tramadol standing 11. dispo: 04-08-19 to home, progressing towards goals Allergies Coded Allergies: Nitrate Analogues (Verified Allergy, Intermediate, REDDNESS IN FACE AND NECK, 04/04/19) Sulfa (Sulfonamide Antibiotics) (Verified Allergy, Intermediate, REDDNESS IN FACE AND NECK, 04/04/19) nitrofurantoin (Verified Allergy, Intermediate, REDDNESS IN FACE AND NECK, 04/04/19) NSAIDS (Non-Steroidal Anti-Inflamma (Verified Allergy, Unknown, 04/04/19) Penicillins (Verified Adverse Reaction, Intermediate, HANDS TINGLED, SYNCOPE, 04/04/19) Vital Signs Vital Signs Date Time Temp Pulse Resp B/P (MAP) Pulse Ox O2 Delivery O2 Flow Rate FiO2 04/12/19 12:11 18 04/12/19 05:55 98.2 107 157/80 (105) 95 Room Air Laboratory Data CBC/BMP Laboratory Tests 04/12/19 06:30 Labs 24H Laboratory Tests 2 04/12/19 06:30: Nucleated Red Blood Cells % (auto) 0.0, Anion Gap 6L, Glomerular Filtration Rate > 60.0, Calcium Level 9.2, C-Reactive Protein, Quantitative 16.00H Current Medications Current Medications Current Medications Medications (Trade) Dose Ordered Sig/Arley Route PRN Reason Start Time Stop Time Status Last Admin Dose Admin Acetaminophen (Tylenol Tab) 1,000 mg TID PO 04/07/19 17:00 04/12/19 09:17 Calcium/Vitamin D (Oscal D) 1,000 mg DAILY PO 04/07/19 17:00 04/12/19 09:18 Cephalexin Monohydrate (Keflex) 500 mg QID PO 04/07/19 17:00 04/12/19 16:59 04/12/19 12:10 Docusate Sodium (Colace) 100 mg BID PO 04/07/19 21:00 04/12/19 09:16 Duloxetine HCl (Cymbalta) 30 mg DAILY PO 04/08/19 09:00 04/12/19 09:18 Lactulose (Cephulac) 30 ml DAILY PO 04/11/19 14:00 04/11/19 17:34 Magnesium Gluconate (Magnesium Gluconate) 250 mg DAILY PO 04/07/19 18:00 04/12/19 09:15 Magnesium Hydroxide (Milk Of Magnesia) 30 ml BIDP PRN PO CONSTIPATION 04/09/19 11:15 04/10/19 21:26 Metoprolol Tartrate (Lopressor) 25 mg BID PO 04/07/19 21:00 04/11/19 13:40 DC Ondansetron HCl (Zofran) 4 mg Q6HP PRN PO NAUSEA 04/07/19 15:15 Oxycodone/ Acetaminophen (Percocet 5mg/ 325mg Tablet) 1 tab Q6HP PRN PO SEVERE PAIN (PS 8-10) 04/08/19 12:00 04/09/19 06:54 Pantoprazole Sodium (Protonix) 40 mg DAILY PO 04/08/19 09:00 04/12/19 09:18 Polyethylene Glycol (Miralax) 1 pkt BIDP PRN PO constipation 04/10/19 11:30 04/10/19 18:02 Potassium Chloride (Micro-K Extencaps) 20 meq DAILY PO 04/07/19 18:00 04/12/19 09:18 Senna (Senokot) 1 tab QHS PO 04/07/19 21:00 04/11/19 20:39 Tramadol HCl (Ultram) 25 mg Q4HP PRN PO MODERATE PAIN (PS 5-7) 04/07/19 16:15 04/08/19 15:31 DC 04/08/19 12:13 Tramadol HCl (Ultram) 50 mg Q6HP PRN PO MODERATE PAIN (PS 5-7) 04/08/19 15:30 04/11/19 12:50 DC 04/11/19 12:03 Tramadol HCl (Ultram) 50 mg TID@0600,1200,1800 PO 04/11/19 18:00 04/12/19 12:11 Zolpidem Tartrate (Ambien) 5 mg QHSP PRN PO INSOMNIA 04/07/19 15:15 04/11/19 20:39 DHARA KENNEDY MD Apr 12, 2019 16:03
[2019-04-12] MEDS: METOPROLOL TART 25 MG TABLET PO SCH ×2 (16:48→21:19)
--- NOTE | 2019-04-12 17:05 | REP ---
CT brain: 04/12/2019. Indication: Ataxia. Comparison: None. Technique: Unenhanced axial CT images of the brain were obtained from skull base to vertex. Findings: There is no acute intracranial hemorrhage, acute cortical infarction, mass effect or hydrocephalous. Diffuse volume loss is present. Patchy areas of white matter hypoattenuation are noted most consistent with chronic small vessel disease. Small focus of exostosis of the outer table of the parietal calvarium on the left is noted. Impression: No acute intracranial process. Volume loss and sequelae of chronic microangiopathic ischemic disease. Electronically Signed by Sonido Veronica DO 04/12/2019 04:57 P
[2019-04-12 20:00] VITALS: BP 135/68
--- NOTE | 2019-04-12 20:53 | IPN ---
DATE: 04/12/2019 Mrs. Villa was having a CAT scan done today. I did call Dr. Gandhi to discuss the case with her about the persistent elevated white count and C-reactive protein (CRP). He agreed on obtaining an ultrasound of her shoulder to see if there is any worsening fluid collection. She had a CT brain done on 04/12/2019 for ataxia, which showed no acute intracranial process. Volume loss and chronic microangiopathic ischemic disease. LABORATORY DATA: White count 15.4, hemoglobin 8.4, hematocrit 26.3, platelets 243, CRP 16 down from 17.8. MEDICATIONS: Keflex currently day #5. IMPRESSION: 1. Left shoulder bursitis with persistently elevated white count and CRP, which is somewhat concerning. At this point, I would have expected to see some improvement. 2. Ataxia with benign head CT except for microangiopathic changes. 3. History of left knee arthroscopy, status post complication of bleeding, requiring 6 weeks of IV vancomycin per family in spite of being culture negative. PLAN: Obtain an ultrasound of the shoulder in the morning to see if there is any fluid collection that could be aspirated to rule out an infective process versus just inflammatory changes and hematoma causing this inflammatory response.
[2019-04-12] MEDS: SENNA 8.6 MG TAB (SENOKOT) PO SCH (21:00)
[2019-04-13 05:40] VITALS: BP 184/82
[2019-04-13] MEDS: METOPROLOL TART 25 MG TABLET PO SCH ×3 (05:47→20:50)
[2019-04-13] MEDS: traMADol 50 MG TAB PO SCH ×3 (05:48→17:56)
[2019-04-13 06:45] LABS: HEMATOCRIT 27.2 % (36.0-47.0); HEMOGLOBIN 8.6 g/dl (12.0-15.5); MEAN CORPUSCULAR HEMOGLOBIN 28.7 pg (27.0-33.0); MEAN CORPUSCULAR HGB CONC 31.6 g/dl (32.0-36.5); MEAN CORPUSCULAR VOLUME 90.7 fl (80.0-96.0); PLATELET COUNT, AUTOMATED 241 10^3/uL (150-450); WHITE BLOOD COUNT 15.1 10^3/uL (4.0-10.0)
[2019-04-13 07:20] LABS: BLOOD UREA NITROGEN 9 MG/DL (7-18); CARBON DIOXIDE LEVEL 28 MEQ/L (21-32); CHLORIDE LEVEL 100 MEQ/L (98-107); CREATININE FOR GFR 0.62 MG/DL (0.55-1.30); GLOMERULAR FILTRATION RATE > 60.0 (>39); GLUCOSE, FASTING 103 MG/DL (70-100); POTASSIUM SERUM 3.7 MEQ/L (3.5-5.1); SODIUM LEVEL 135 MEQ/L (136-145)
[2019-04-13] MEDS: PANTOPRAZOLE 40MG TAB (PROTONIX) PO SCH (08:29)
[2019-04-13] MEDS: CALCIUM/VITAMIN D 500 MG TAB PO SCH (08:29)
[2019-04-13] MEDS: LACTULOSE 20 GM/30 ML SYRUP UD PO SCH ×3 (08:29→08:38)
[2019-04-13] MEDS: SINEMET 25-100 MG TAB PO SCH ×3 (08:29→16:30)
[2019-04-13] MEDS: MAGNESIUM GLUCONATE 500 MG TAB PO SCH (08:30)
[2019-04-13] MEDS: POTASSIUM CHLORIDE 10 MEQ SR TABLET PO SCH (08:31)
[2019-04-13] MEDS: DULoxetine 30 MG CAP (CYMBALTA) PO SCH (08:31)
[2019-04-13] MEDS: ACETAMINOPHEN 500 MG TAB PO SCH ×3 (08:31→20:52)
[2019-04-13] MEDS: DOCUSATE SODIUM 100 MG CAP PO SCH ×3 (08:32→20:52)
[2019-04-13 08:50] VITALS: BP 142/82
--- NOTE | 2019-04-13 13:27 | REP ---
REASON: Palpable area. PRIORS: None. Multiple ultrasonographic images over the region of interest left shoulder show a 6.1 x 1.6 x 10.9 cm sized mixed echo complex structure possibly representing subdeltoid bursitis. Pre and post gadolinium enhanced MRI is recommended for further evaluation. Electronically Signed by Syd Mcgregor DO 04/13/2019 04:29 P
[2019-04-13 14:00] VITALS: BP 160/82
--- NOTE | 2019-04-13 16:22 | IPNPDOC ---
Subjective Date Seen The patient was seen on 04/13/19. Subjective Chief Complaint/HPI Patient seen by medical hospitalist nurse practitioner follow-up on Rehab Unit. 78-year-old female is seen in patient's home on acute rehabilitation unit. She is complaining of left shoulder pain after physical therapy today. She has 2 ice packs to her left shoulder, and reports improved range of motion but continues to have some limitation to her left shoulder. She reports physical therapy is point well. She is also complaining of mild to moderate constipation which seems to be chronic at this point. General: Denies: ROS Unobtainable, Chills, Night Sweats, Fatigue, Malaise, Normal Appetite, Other Symptoms Constitutional: Reports: Fatigue; Denies: Chills, Fever, Malaise, Night Sweats, Weakness, Weight Loss, Lethargy, Other Eyes: Reports: Pain ENT: Denies: Head Aches, Ear Pain, Dysphagia, Sinus Congestion, Post Nasal Drip, Sore Throat, Epistaxis, Other Symptoms Skin: Denies: Rash, Lesions, Jaundice, Bruising, Itching, Dry, Breakdown, Nail Changes, Other Pulmonary: Denies: Dyspnea, Cough, Pleuritic Chest Pain, Other Symptoms Cardiovascular: Denies: Chest Pain, Palpitations, Orthopnea, Paroxysmal Noc. Dyspnea, Edema, Lt Headedness, Other Symptoms Gastrointestinal: Denies: Nausea, Vomiting, Abdominal Pain, Diarrhea, Constipation, Melena, Hematochezia, Other Symptoms Genitourinary: Denies: Dysuria, Frequency, Incontinence, Hematuria, Retention, Other Symptoms Hematologic: Denies: Bruising, Bleeding Excessively, Petecchia, Purpura, Enlarged Lymph Nodes, Other Hematologic Musculoskeletal: Reports: Shoulder Pain (left shoulder), Arm Pain Neurological: Reports: Weakness Psych: Denies: Mood Normal, Anxiety, Depression, Memory Issues, Thoughts of Self Harm, Anger, Thoughts of Harming Other, Other Psych Objective Physical Examination General Exam: Positive: Alert, Cooperative, No Acute Distress Eye Exam: Positive: PERRLA, Conjunctiva & lids normal ENT Exam: Positive: Atraumatic, Mucous membr. moist/pink, Pharynx Normal Neck Exam: Positive: Supple, +2 carotid pulse wo bruit Chest Exam: Positive: Clear to auscultation, Normal air movement Heart Exam: Positive: Rate Normal, Normal S1, Normal S2 Abdomen Exam: Positive: Normal bowel sounds, Soft Neuro Exam: Positive: Cranial Nerves 3-12 NL Assessment /Plan Problems (1) Cellulitis of left shoulder Status: Acute Response to Treatment: Improving Discussed With: Patient Problem Text: 78-year-old female is seen in patient's home on acute rehabilitation unit. She is complaining of left shoulder pain after physical therapy today. She has 2 ice packs to her left shoulder, and reports improved range of motion but continues to have some limitation to her left shoulder. Cellulitis/bursitis left shoulder show Continue with acute rehabilitation treatment plan Pain management. Will continue current plan Continue physical therapy/occupational therapy. Orthopedic continue to follow Qualitative platelet defects Normally follows with Dr. Yen in [place] periodically. Multiple bruises on body but no bleeding noted. Essential hypertension Continue metoprolol 50 mg by mouth twice a day Insomnia Continue Ambien Parkinson's disease Continue carbidopa levodopa 3 times a day 0.5 mg DVT prophylaxis: Lovenox injections Discharge: Pending is acute rehabilitation. Physician Plan/VTE VTE Prophylaxis Ordered?: No Plan Diet: Continue Current Activity: Continue Current Therapy: PT, OT VS, I&O, 24H, Fishbone Vital Signs/I&O Vital Signs Date Time Temp Pulse Resp B/P (MAP) Pulse Ox O2 Delivery O2 Flow Rate FiO2 04/13/19 15:07 98 160/82 04/13/19 13:01 18 04/13/19 05:40 99.1 99 Room Air I&O- Last 24 Hours up to 6 AM 04/13/19 06:00 Intake Total 960 ml Output Total 0 ml Balance 960 ml Laboratory Data 24H LABS Laboratory Tests 2 04/13/19 06:34: Nucleated Red Blood Cells % (auto) 0.0, Anion Gap 7L, Glomerular Filtration Rate > 60.0, Calcium Level 9.0, C-Reactive Protein, Quantitative 13.90H CBC/BMP Laboratory Tests 04/13/19 06:34 RODDY BELTRE Apr 13, 2019 16:22
[2019-04-13 20:15] VITALS: BP 158/67
[2019-04-13] MEDS: MIRALAX *UNIT DOSE* 17GM PACKET PO PRN (20:50)
[2019-04-13] MEDS: SENNA 8.6 MG TAB (SENOKOT) PO SCH (20:52)
[2019-04-14 05:55] VITALS: BP 148/76
[2019-04-14] MEDS: traMADol 50 MG TAB PO SCH ×3 (06:02→17:33)
[2019-04-14] MEDS: METOPROLOL TART 25 MG TABLET PO SCH (06:02)
[2019-04-14 07:24] LABS: HEMOGLOBIN 8.7 g/dl (12.0-15.5); MEAN CORPUSCULAR HEMOGLOBIN 29.3 pg (27.0-33.0); MEAN CORPUSCULAR HGB CONC 32.2 g/dl (32.0-36.5); MEAN CORPUSCULAR VOLUME 90.9 fl (80.0-96.0); PLATELET COUNT, AUTOMATED 260 10^3/uL (150-450); RED BLOOD COUNT 2.97 10^6/uL (4.00-5.40); WHITE BLOOD COUNT 15.3 10^3/uL (4.0-10.0)
[2019-04-14 07:41] LABS: BLOOD UREA NITROGEN 10 MG/DL (7-18); CALCIUM LEVEL 9.1 MG/DL (8.8-10.2); CARBON DIOXIDE LEVEL 28 MEQ/L (21-32); CHLORIDE LEVEL 101 MEQ/L (98-107); CREATININE FOR GFR 0.67 MG/DL (0.55-1.30); GLOMERULAR FILTRATION RATE > 60.0 (>39); GLUCOSE, FASTING 129 MG/DL (70-100); POTASSIUM SERUM 3.7 MEQ/L (3.5-5.1); SODIUM LEVEL 136 MEQ/L (136-145)
[2019-04-14] MEDS: MAGNESIUM GLUCONATE 500 MG TAB PO SCH (08:40)
[2019-04-14] MEDS: ACETAMINOPHEN 500 MG TAB PO SCH ×3 (08:40→20:56)
[2019-04-14] MEDS: DULoxetine 30 MG CAP (CYMBALTA) PO SCH (08:40)
[2019-04-14] MEDS: SINEMET 25-100 MG TAB PO SCH ×3 (08:41→15:56)
[2019-04-14] MEDS: LACTULOSE 20 GM/30 ML SYRUP UD PO SCH (08:42)
[2019-04-14] MEDS: POTASSIUM CHLORIDE 10 MEQ SR TABLET PO SCH (08:42)
[2019-04-14] MEDS: PANTOPRAZOLE 40MG TAB (PROTONIX) PO SCH (08:42)
[2019-04-14] MEDS: DOCUSATE SODIUM 100 MG CAP PO SCH ×2 (08:42→21:00)
[2019-04-14] MEDS: CALCIUM/VITAMIN D 500 MG TAB PO SCH (08:42)
[2019-04-14 14:00] VITALS: BP 133/63
[2019-04-14 20:00] VITALS: BP 152/66
[2019-04-14] MEDS: METOPROLOL TART 50 MG TAB PO SCH (20:58)
[2019-04-14] MEDS: SENNA 8.6 MG TAB (SENOKOT) PO SCH (21:00)
[2019-04-15 05:34] VITALS: BP 167/72
[2019-04-15] MEDS: traMADol 50 MG TAB PO SCH ×2 (05:36→11:48)
[2019-04-15 07:08] LABS: HEMATOCRIT 26.6 % (36.0-47.0); HEMOGLOBIN 8.2 g/dl (12.0-15.5); MEAN CORPUSCULAR HEMOGLOBIN 28.2 pg (27.0-33.0); MEAN CORPUSCULAR HGB CONC 30.8 g/dl (32.0-36.5); MEAN CORPUSCULAR VOLUME 91.4 fl (80.0-96.0); PLATELET COUNT, AUTOMATED 251 10^3/uL (150-450); RED BLOOD COUNT 2.91 10^6/uL (4.00-5.40)
[2019-04-15 07:33] LABS: BLOOD UREA NITROGEN 11 MG/DL (7-18); CALCIUM LEVEL 9.3 MG/DL (8.8-10.2); CARBON DIOXIDE LEVEL 29 MEQ/L (21-32); CHLORIDE LEVEL 103 MEQ/L (98-107); CREATININE FOR GFR 0.64 MG/DL (0.55-1.30); GLOMERULAR FILTRATION RATE > 60.0 (>39); GLUCOSE, FASTING 98 MG/DL (70-100); POTASSIUM SERUM 3.9 MEQ/L (3.5-5.1); SODIUM LEVEL 137 MEQ/L (136-145)
[2019-04-15] MEDS: LACTULOSE 20 GM/30 ML SYRUP UD PO SCH (09:00)
[2019-04-15] MEDS: DOCUSATE SODIUM 100 MG CAP PO SCH (09:00)
[2019-04-15] MEDS: MAGNESIUM GLUCONATE 500 MG TAB PO SCH (10:08)
[2019-04-15] MEDS: SINEMET 25-100 MG TAB PO SCH ×2 (10:08→12:08)
[2019-04-15] MEDS: DULoxetine 30 MG CAP (CYMBALTA) PO SCH (10:09)
[2019-04-15] MEDS: PANTOPRAZOLE 40MG TAB (PROTONIX) PO SCH (10:09)
[2019-04-15 10:10] VITALS: BP 160/70
[2019-04-15] MEDS: POTASSIUM CHLORIDE 10 MEQ SR TABLET PO SCH (10:10)
[2019-04-15] MEDS: CALCIUM/VITAMIN D 500 MG TAB PO SCH (10:10)
[2019-04-15] MEDS: METOPROLOL TART 50 MG TAB PO SCH (10:10)
[2019-04-15] MEDS: ACETAMINOPHEN 500 MG TAB PO SCH (10:11)
[2019-04-15] MEDS ORDERED: TRAM50TA2 PO (10:31)
[2019-04-15] MEDS ORDERED: CARB25TA9 PO (10:31)
[2019-04-15] MEDS ORDERED: KLOR10TA76 PO (10:31)
[2019-04-15] MEDS ORDERED: PANT40TA3 PO (10:31)
[2019-04-15] MEDS ORDERED: CYMB1CAP5 PO (10:31)
[2019-04-15] MEDS ORDERED: LOPR1TAB6 PO (10:31)
--- NOTE | 2019-04-15 18:47 | IPNPDOC ---
PM&R Progress Note DATE OF SERVICE: Apr 13, 2019 [employer]atrical Vari[employer] Progress Note Subjective: Patient reporting she thinks her walking has greatly improved after only 2 doses of Sinemet. She is open to continuing this medication and following up with neurology. She reports increased range of motion in her left arm. REVIEW OF SYSTEMS: The following is a completed review of systems and has been reviewed. Review of systems otherwise unremarkable. PAIN: Patient self reports left shoulder pain EYES: No recent vision changes EARS, NOSE, & THROAT: No throat pain, or dysphagia, or rhinorrhea CARDIOVASCULAR: Denies chest pain or palpitations PULMONARY: Denies shortness of breath GASTROINTESTINAL: Denies constipation/diarrhea GENITOURINARY: denies dysuria MUSCULOSKELETAL: left shoulder pain NEUROLOGICAL:no seizure activity, +RUE tremor HEMATOLOGICAL: +platelet disorder SKIN: left shoulder incision, and left arm cellulitis PSYCHIATRIC: Unremarkable All other review of systems found to be negative. PHYSICAL EXAMINATION: VITAL SIGNS: Please see below. GENERAL: Pleasant and cooperative. No acute distress. HEENT: PERRL. Extraocular movements intact. Clear conjunctiva +masked faces CARDIOVASCULAR: Regular rate and rhythm. No murmurs, rubs, or gallops LUNGS: Clear to auscultation bilaterally. No wheezes. No rhonchi ABDOMEN: Soft, nontender, nondistended. Positive bowel sounds. Normal active bowel sounds. NEUROLOGICAL: Alert and oriented times three. Cranial nerves II through XII grossly intact. Sensation grossly intact RUE tremor EXTREMITIES: 5\5 strength right upper extremities. 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 5/5 strength in left lower extremity. (-) melina's bilat SKIN: left shoulder incision without induration, left arm erythematous and mildly swollen, +ecchymosis (improving overall) ASSESSMENT:78-year-old F with past medical history of OA and platelet disorder who presents status post left shoulder bursitis with LUE cellulitis PLAN: 1. 1. Rehab: PT- strengthen/stretch/maintain ROM bilat LE, work on dynamic b alance training OT- advance ADLs with limited use of LUE- focus on scapular stabilization exercises and PROM (to point of pain) of shoulder joint 2. Neuro: avoid deliriogenic medications- patient reporting shuffling gait with falls and RUE tremor, slightly masked faces -discussed with family and patient, agreed to trial Sinemet while here, started 25-100 half tab TID with notable improvement in gait and masked faces -CTH negative hydrocephalus -will refer to outpatient neurology for clinical diagnosis of Parkinson's disease 3. CArdio: no hx- medicine consulted to assist in management, recs apprecaited -patient with elevated BPs,family initialy hesitant to start meds, agreed to trial while on ARU, c/u Metoprolol 4. Resp: encourage incentive spirometry 5. Ortho: Left shoulder bursitis s/p arthroscopic I&D, cultures did not grow bacteria, patient with improving cellulitis s/p a few doses of IV Vancomycin, ID consulted, switched to Keflex,, wbc improving overall improvement in pain and ROM, will monitor CRP/ESR, ID recs appreciated 6. Heme: qualitative platelet disorder will monitor for bleeding-stable 7. : monitor PVRs 8. DVT ppx: TEDs, no clinical suspicion for DVT at this time 9. GI ppx: protonix 10. Pain: tylenol, cymbalta, ice, tramadol standing 11. dispo: 04-08-19 to home, progressing towards goals Allergies Coded Allergies: Nitrate Analogues (Verified Allergy, Intermediate, REDDNESS IN FACE AND NECK, 04/04/19) Sulfa (Sulfonamide Antibiotics) (Verified Allergy, Intermediate, REDDNESS IN FACE AND NECK, 04/04/19) nitrofurantoin (Verified Allergy, Intermediate, REDDNESS IN FACE AND NECK, 04/04/19) NSAIDS (Non-Steroidal Anti-Inflamma (Verified Allergy, Unknown, 04/04/19) Penicillins (Verified Adverse Reaction, Intermediate, HANDS TINGLED, SYNCOPE, 04/04/19) Vital Signs Vital Signs Date Time Temp Pulse Resp B/P (MAP) Pulse Ox O2 Delivery O2 Flow Rate FiO2 04/15/19 11:48 18 Room Air 04/15/19 10:10 92 160/70 04/15/19 05:34 98.1 98 Laboratory Data CBC/BMP Laboratory Tests 04/15/19 06:38 Labs 24H Laboratory Tests 2 04/15/19 06:38: Nucleated Red Blood Cells % (auto) 0.0, Anion Gap 5L, Glomerular Filtration Rate > 60.0, Calcium Level 9.3 Current Medications Current Medications Current Medications Medications (Trade) Dose Ordered Sig/Arley Route PRN Reason Start Time Stop Time Status Last Admin Dose Admin Acetaminophen (Tylenol Tab) 1,000 mg TID PO 04/07/19 17:00 04/15/19 13:06 DC 04/15/19 10:11 Calcium/Vitamin D (Oscal D) 1,000 mg DAILY PO 04/07/19 17:00 04/15/19 13:06 DC 04/15/19 10:10 Carbidopa/Levodopa (Sinemet 25/100) 0.5 tab TID@0800,1200,1600 PO 04/13/19 08:00 04/15/19 13:06 DC 04/15/19 12:08 Cephalexin Monohydrate (Keflex) 500 mg QID PO 04/07/19 17:00 04/12/19 16:59 DC 04/12/19 12:10 Docusate Sodium (Colace) 100 mg BID PO 04/07/19 21:00 04/15/19 13:06 DC 04/14/19 08:42 Duloxetine HCl (Cymbalta) 30 mg DAILY PO 04/08/19 09:00 04/15/19 13:06 DC 04/15/19 10:09 Lactulose (Cephulac) 30 ml DAILY PO 04/11/19 14:00 04/15/19 13:06 DC 04/12/19 16:43 Magnesium Gluconate (Magnesium Gluconate) 250 mg DAILY PO 04/07/19 18:00 04/15/19 13:06 DC 04/15/19 10:08 Magnesium Hydroxide (Milk Of Magnesia) 30 ml BIDP PRN PO CONSTIPATION 04/09/19 11:15 04/15/19 13:06 DC 04/10/19 21:26 Metoprolol Tartrate (Lopressor) 25 mg BID PO 04/07/19 21:00 04/11/19 13:40 DC Metoprolol Tartrate (Lopressor) 25 mg Q8H PO 04/12/19 14:00 04/14/19 11:33 DC 04/14/19 06:02 Metoprolol Tartrate (Lopressor) 50 mg BID PO 04/14/19 21:00 04/15/19 13:06 DC 04/15/19 10:10 Ondansetron HCl (Zofran) 4 mg Q6HP PRN PO NAUSEA 04/07/19 15:15 04/15/19 13:06 DC Oxycodone/ Acetaminophen (Percocet 5mg/ 325mg Tablet) 1 tab Q6HP PRN PO SEVERE PAIN (PS 8-10) 04/08/19 12:00 04/14/19 10:42 DC 04/09/19 06:54 Pantoprazole Sodium (Protonix) 40 mg DAILY PO 04/08/19 09:00 04/15/19 13:06 DC 04/15/19 10:09 Polyethylene Glycol (Miralax) 1 pkt BIDP PRN PO constipation 04/10/19 11:30 04/15/19 13:06 DC 04/13/19 20:50 Potassium Chloride (Micro-K Extencaps) 20 meq DAILY PO 04/07/19 18:00 04/15/19 13:06 DC 04/15/19 10:10 Senna (Senokot) 1 tab QHS PO 04/07/19 21:00 04/15/19 13:06 DC 04/11/19 20:39 Tramadol HCl (Ultram) 25 mg Q4HP PRN PO MODERATE PAIN (PS 5-7) 04/07/19 16:15 04/08/19 15:31 DC 04/08/19 12:13 Tramadol HCl (Ultram) 50 mg Q6HP PRN PO MODERATE PAIN (PS 5-7) 04/08/19 15:30 04/11/19 12:50 DC 04/11/19 12:03 Tramadol HCl (Ultram) 50 mg TID@0600,1200,1800 PO 04/11/19 18:00 04/15/19 13:06 DC 04/15/19 11:48 Zolpidem Tartrate (Ambien) 5 mg QHSP PRN PO INSOMNIA 04/07/19 15:15 04/15/19 13:06 DC 04/11/19 20:39 DHARA KENNEDY MD Apr 15, 2019 18:47
--- NOTE | 2019-04-15 18:51 | IPNPDOC ---
PM&R Progress Note DATE OF SERVICE: Apr 14, 2019 [employer] Drawer Progress Note Subjective: Patient reporting she feels well and is happy she does not have to use a walker, but would still like one for home. She was educated on importance of getting exercise in the setting of Parkinsons as this is considered an effective treatment in addition to dopaminergics. REVIEW OF SYSTEMS: The following is a completed review of systems and has been reviewed. Review of systems otherwise unremarkable. PAIN: Patient self reports left shoulder pain EYES: No recent vision changes EARS, NOSE, & THROAT: No throat pain, or dysphagia, or rhinorrhea CARDIOVASCULAR: Denies chest pain or palpitations PULMONARY: Denies shortness of breath GASTROINTESTINAL: Denies constipation/diarrhea GENITOURINARY: denies dysuria MUSCULOSKELETAL: left shoulder pain NEUROLOGICAL:no seizure activity, +RUE tremor HEMATOLOGICAL: +platelet disorder SKIN: left shoulder incision, and left arm cellulitis PSYCHIATRIC: Unremarkable All other review of systems found to be negative. PHYSICAL EXAMINATION: VITAL SIGNS: Please see below. GENERAL: Pleasant and cooperative. No acute distress. HEENT: PERRL. Extraocular movements intact. Clear conjunctiva +masked faces CARDIOVASCULAR: Regular rate and rhythm. No murmurs, rubs, or gallops LUNGS: Clear to auscultation bilaterally. No wheezes. No rhonchi ABDOMEN: Soft, nontender, nondistended. Positive bowel sounds. Normal active bowel sounds. NEUROLOGICAL: Alert and oriented times three. Cranial nerves II through XII grossly intact. Sensation grossly intact RUE tremor EXTREMITIES: 5\5 strength right upper extremities. 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 5/5 strength in left lower extremity. (-) melina's bilat SKIN: left shoulder incision without induration, left arm erythematous and mildly swollen, +ecchymosis (improving overall) ASSESSMENT:78-year-old F with past medical history of OA and platelet disorder who presents status post left shoulder bursitis with LUE cellulitis PLAN: 1. 1. Rehab: PT- strengthen/stretch/maintain ROM bilat LE, work on dynamic balance training- Independent in PT without AD, room privileges OT- advance ADLs with limited use of LUE- focus on scapular stabilization exercises and PROM (to point of pain) of shoulder joint 2. Neuro: avoid deliriogenic medications- patient reporting shuffling gait with falls and RUE tremor, slightly masked faces -discussed with family and patient, agreed to trial Sinemet while here, started 25-100 half tab TID with notable improvement in gait and masked faces -CTH negative for hydrocephalus -will refer to outpatient neurology for clinical diagnosis of Parkinson's disease 3. CArdio: no hx- medicine consulted to assist in management, recs apprecaited -patient with elevated BPs,family initialy hesitant to start meds, agreed to trial while on ARU, c/u Metoprolol 4. Resp: encourage incentive spirometry 5. Ortho: Left shoulder bursitis s/p arthroscopic I&D, cultures did not grow bacteria, patient with improving cellulitis s/p a few doses of IV Vancomycin, ID consulted, switched to Keflex,, wbc improving overall, however minimal increase today, but CRP trending down, and clinically improving- US left showing persistent bursitis, however s/p bursectomy negative fluid culture, no fevers or chills, discussed case with Dr. Mello and Dr. Gandhi, no surgical intervention recommended, no further antibiotics, will f/u with both physicians upon discharge with script to check CRP/ESR/CBC one week after d/c improvement in pain and ROM, will monitor CRP/ESR, ID recs appreciated 6. Heme: qualitative platelet disorder will monitor for bleeding-stable 7. : monitor PVRs 8. DVT ppx: TEDs, no clinical suspicion for DVT at this time 9. GI ppx: protonix 10. Pain: tylenol, cymbalta, ice, tramadol standing 11. dispo: 04-15-19 to home, progressing towards goals Allergies Coded Allergies: Nitrate Analogues (Verified Allergy, Intermediate, REDDNESS IN FACE AND NECK, 04/04/19) Sulfa (Sulfonamide Antibiotics) (Verified Allergy, Intermediate, REDDNESS IN FACE AND NECK, 04/04/19) nitrofurantoin (Verified Allergy, Intermediate, REDDNESS IN FACE AND NECK, 04/04/19) NSAIDS (Non-Steroidal Anti-Inflamma (Verified Allergy, Unknown, 04/04/19) Penicillins (Verified Adverse Reaction, Intermediate, HANDS TINGLED, SYNCOPE, 04/04/19) Vital Signs Vital Signs Date Time Temp Pulse Resp B/P (MAP) Pulse Ox O2 Delivery O2 Flow Rate FiO2 04/15/19 11:48 18 Room Air 04/15/19 10:10 92 160/70 04/15/19 05:34 98.1 98 Laboratory Data CBC/BMP Laboratory Tests 04/15/19 06:38 Labs 24H Laboratory Tests 2 04/15/19 06:38: Nucleated Red Blood Cells % (auto) 0.0, Anion Gap 5L, Glomerular Filtration Rate > 60.0, Calcium Level 9.3 Current Medications Current Medications Current Medications Medications (Trade) Dose Ordered Sig/Arley Route PRN Reason Start Time Stop Time Status Last Admin Dose Admin Acetaminophen (Tylenol Tab) 1,000 mg TID PO 04/07/19 17:00 04/15/19 13:06 DC 04/15/19 10:11 Calcium/Vitamin D (Oscal D) 1,000 mg DAILY PO 04/07/19 17:00 04/15/19 13:06 DC 04/15/19 10:10 Carbidopa/Levodopa (Sinemet 25/100) 0.5 tab TID@0800,1200,1600 PO 04/13/19 08:00 04/15/19 13:06 DC 04/15/19 12:08 Cephalexin Monohydrate (Keflex) 500 mg QID PO 04/07/19 17:00 04/12/19 16:59 DC 04/12/19 12:10 Docusate Sodium (Colace) 100 mg BID PO 04/07/19 21:00 04/15/19 13:06 DC 04/14/19 08:42 Duloxetine HCl (Cymbalta) 30 mg DAILY PO 04/08/19 09:00 04/15/19 13:06 DC 04/15/19 10:09 Lactulose (Cephulac) 30 ml DAILY PO 04/11/19 14:00 04/15/19 13:06 DC 04/12/19 16:43 Magnesium Gluconate (Magnesium Gluconate) 250 mg DAILY PO 04/07/19 18:00 04/15/19 13:06 DC 04/15/19 10:08 Magnesium Hydroxide (Milk Of Magnesia) 30 ml BIDP PRN PO CONSTIPATION 04/09/19 11:15 04/15/19 13:06 DC 04/10/19 21:26 Metoprolol Tartrate (Lopressor) 25 mg BID PO 04/07/19 21:00 04/11/19 13:40 DC Metoprolol Tartrate (Lopressor) 25 mg Q8H PO 04/12/19 14:00 04/14/19 11:33 DC 04/14/19 06:02 Metoprolol Tartrate (Lopressor) 50 mg BID PO 04/14/19 21:00 04/15/19 13:06 DC 04/15/19 10:10 Ondansetron HCl (Zofran) 4 mg Q6HP PRN PO NAUSEA 04/07/19 15:15 04/15/19 13:06 DC Oxycodone/ Acetaminophen (Percocet 5mg/ 325mg Tablet) 1 tab Q6HP PRN PO SEVERE PAIN (PS 8-10) 04/08/19 12:00 04/14/19 10:42 DC 04/09/19 06:54 Pantoprazole Sodium (Protonix) 40 mg DAILY PO 04/08/19 09:00 04/15/19 13:06 DC 04/15/19 10:09 Polyethylene Glycol (Miralax) 1 pkt BIDP PRN PO constipation 04/10/19 11:30 04/15/19 13:06 DC 04/13/19 20:50 Potassium Chloride (Micro-K Extencaps) 20 meq DAILY PO 04/07/19 18:00 04/15/19 13:06 DC 04/15/19 10:10 Senna (Senokot) 1 tab QHS PO 04/07/19 21:00 04/15/19 13:06 DC 04/11/19 20:39 Tramadol HCl (Ultram) 25 mg Q4HP PRN PO MODERATE PAIN (PS 5-7) 04/07/19 16:15 04/08/19 15:31 DC 04/08/19 12:13 Tramadol HCl (Ultram) 50 mg Q6HP PRN PO MODERATE PAIN (PS 5-7) 04/08/19 15:30 04/11/19 12:50 DC 04/11/19 12:03 Tramadol HCl (Ultram) 50 mg TID@0600,1200,1800 PO 04/11/19 18:00 04/15/19 13:06 DC 04/15/19 11:48 Zolpidem Tartrate (Ambien) 5 mg QHSP PRN PO INSOMNIA 04/07/19 15:15 04/15/19 13:06 DC 04/11/19 20:39 DHARA KENNEDY MD Apr 15, 2019 18:51
--- NOTE | 2019-05-18 13:31 | PMRDS ---
DATE OF ADMISSION: 04/07/2019 DATE OF DISCHARGE: 04/15/2019 CHIEF COMPLAINT/DISCHARGE DIAGNOSIS: Left shoulder bursitis with a new diagnosis of Parkinson's disease. HISTORY OF PRESENT ILLNESS: 78-year-old female with a past medical history osteoarthritis (OA), vitamin D deficiency, qualitative platelet disorder who developed left shoulder pain and swelling with fever following a pneumonia vaccine and presented to [facility] on 04/04/2019 admitted for possible septic shoulder joint with cellulitis. MRI shoulder showed "significant distension of the subacromial subdeltoid bursa with fluid and associated synovitis possibly communicating with the glenohumeral joint. Adjacent edema within the deltoid and rotator cuff muscles." She was started on IV vancomycin and evaluated by orthopedics who performed an arthroscopic irrigation and debridement on 04/05/2019 with preop platelet infusion to prevent perioperative excessive bleeding. She was evaluated by therapy and noted to be below her prior level of function and deemed medically appropriate for discharge to ARU on 04/07/2019. On initial visit the patient and family reporting she has developed a shuffling gait over the last year with frequent falls. She has not followed by a neurologist. PAST MEDICAL HISTORY: As per HPI. HOSPITAL COURSE: The patient was admitted and enrolled in a comprehensive physical therapy/occupational therapy (PT/OT) program. She received 24-hour nursing supervision and weekly team meetings were held to discuss her progress. On initial presentation the patient presented with a shuffling gait and a masked facies in addition to being hypophonic. Symptoms of Parkinson's disease were discussed with the family and patient who agreed to trial Sinemet. The patient was started on low dose Sinemet three times a day with immediate and notable improvement in her gait and masked facies. CTH was ordered to rule hydrocephalous. The patient was also found to have elevated blood pressures, family and the patient were initially hesitant to start any blood pressure medications however, did agree to try a low dose of metoprolol. The patient's left shoulder bursitis and cellulitis improved following a course of IV vancomycin and she was switched to Keflex. The patient's range of motion improved dramatically. Her CRP was trending down and further interventions for persistent bursitis seen on ultrasound was discussed with Dr. Mello and Dr. Gandhi who agreed that no surgical intervention was recommended at this point in addition to no further antibiotics. The patient was instructed to followup with Dr. Mello to monitor for worsening of her inflamed joint. The patient overall made gains in therapy and was deemed medically and functionally stable to return home. DISCHARGE MEDICATIONS: As per instructions. FUNCTIONAL HISTORY ON DISCHARGE: The patient was modified independent for all functional transfers, able to ambulate 300 feet without an assistive device and negotiate stairs at a modified independent level. In occupational therapy the patient was modified independent for upper and lower body dressing and toileting. Thank you for this referral.
== END 2019-04-15 12:47 | disposition home or self-care (01) | DRG 546 ==
LOC: M PM&R 14:22
PROVIDERS: ADMIT Physical Medicine & Rehabilitation; ATTEND Physical Medicine & Rehabilitation
DX: M06.212 Rheumatoid bursitis, left shoulder (principal); L03.114 Cellulitis of left upper limb; Z79.899 Other long term (current) drug therapy; Z88.0 Allergy status to penicillin; Z88.2 Allergy status to sulfonamides; Z88.6 Allergy status to analgesic agent; E55.9 Vitamin D deficiency, unspecified; F32.9 Major depressive disorder, single episode, unspecified; M19.90 Unspecified osteoarthritis, unspecified site; M71.112 Other infective bursitis, left shoulder; K59.00 Constipation, unspecified; G47.00 Insomnia, unspecified; G20 Parkinson's disease; R26.2 Difficulty in walking, not elsewhere classified; E11.9 Type 2 diabetes mellitus without complications; R29.6 Repeated falls

== ENCOUNTER → 2019-04-21 | Outpatient (CLI) | payer MEDICARE, OTHER ==
[~2019-04-21] MED LIST changes: +CARB25TA9 PO; +CYMB1CAP5 PO; +KLOR10TA76 PO; +LOPR1TAB6 PO; +PANT40TA3 PO; +TRAM50TA2 PO
[2019-04-21 16:53] LABS: HEMOGLOBIN 9.6 g/dl (12.0-15.5); MEAN CORPUSCULAR HEMOGLOBIN 28.3 pg (27.0-33.0); MEAN CORPUSCULAR VOLUME 94.4 fl (80.0-96.0); PLATELET COUNT, AUTOMATED 251 10^3/uL (150-450); RED BLOOD COUNT 3.39 10^6/uL (4.00-5.40); WHITE BLOOD COUNT 12.5 10^3/uL (4.0-10.0)
[2019-04-21 17:02] LABS: BLOOD UREA NITROGEN 12 MG/DL (7-18); C REACTIVE PROTEIN QUANTITATIV 1.64 MG/DL (0.00-0.30); CALCIUM LEVEL 9.2 MG/DL (8.8-10.2); CARBON DIOXIDE LEVEL 28 MEQ/L (21-32); CHLORIDE LEVEL 104 MEQ/L (98-107); CREATININE FOR GFR 0.82 MG/DL (0.55-1.30); GLOMERULAR FILTRATION RATE > 60.0 (>39); GLUCOSE, FASTING 97 MG/DL (70-100); POTASSIUM SERUM 3.9 MEQ/L (3.5-5.1); SODIUM LEVEL 139 MEQ/L (136-145)
[2019-04-21 17:22] LABS: ERYTHROCYTE SEDIMENTATION RATE 67 mm/hr (0-30)
== END ==
LOC: M LRY 10:06
PROVIDERS: ATTEND Physical Medicine & Rehabilitation
DX: M75.52 Bursitis of left shoulder (principal)

== ENCOUNTER → 2019-04-21 | Outpatient (RCR) | payer MEDICARE, OTHER | LOC: M PT 04-19 13:09 → M OT 04-19 13:14 → M PT 13:09 | PROVIDERS: ATTEND Internal Medicine | DX: R26.2 Difficulty in walking, not elsewhere classified (principal); M71.112 Other infective bursitis, left shoulder ==

== ENCOUNTER → 2019-04-25 | Outpatient (REF) | payer MEDICARE, OTHER ==
[2019-04-25 13:59] LABS: BASO % 0.1 % (0.0-1.0); HEMATOCRIT 34.9 % (36.0-47.0); HEMOGLOBIN 10.5 g/dl (12.0-15.5); LYMPH % 21.3 % (24.0-44.0); MEAN CORPUSCULAR HEMOGLOBIN 28.2 pg (27.0-33.0); MEAN CORPUSCULAR HGB CONC 30.1 g/dl (32.0-36.5); MEAN CORPUSCULAR VOLUME 93.8 fl (80.0-96.0); MONO # 1.6 10^3/uL (0.0-0.8); MONO % 16.6 % (0.0-5.0); NEUTROPHILS # 5.6 10^3/uL (1.5-8.5); NEUTROPHILS % 59.3 % (36.0-66.0); PLATELET COUNT, AUTOMATED 206 10^3/uL (150-450); RED BLOOD COUNT 3.72 10^6/uL (4.00-5.40); WHITE BLOOD COUNT 9.4 10^3/uL (4.0-10.0)
[2019-04-25 14:48] LABS: ERYTHROCYTE SEDIMENTATION RATE 59 mm/hr (0-30)
== END ==
LOC: M SFHCPLAZ 11:25
PROVIDERS: ATTEND Internal Medicine Infectious Disease
DX: M75.52 Bursitis of left shoulder (principal); K21.9 Gastro-esophageal reflux disease without esophagitis
CPT/HCPCS: 36415; 85025; 85652; 86140; G0463

== ENCOUNTER 2019-05-01 09:05 | Emergency (ER) | payer MEDICARE, OTHER ==
[~2019-05-01] VITALS: Ht 165.1 cm; Wt 77.2 kg
[2019-05-01 10:11] LABS: HEMATOCRIT 35.3 % (36.0-47.0); HEMOGLOBIN 10.7 g/dl (12.0-15.5); MEAN CORPUSCULAR HEMOGLOBIN 28.2 pg (27.0-33.0); MEAN CORPUSCULAR HGB CONC 30.3 g/dl (32.0-36.5); MEAN CORPUSCULAR VOLUME 92.9 fl (80.0-96.0); PLATELET COUNT, AUTOMATED 161 10^3/uL (150-450); WHITE BLOOD COUNT 11.9 10^3/uL (4.0-10.0)
[2019-05-01 10:29] LABS: BLOOD UREA NITROGEN 15 MG/DL (7-18); C REACTIVE PROTEIN QUANTITATIV 0.64 MG/DL (0.00-0.30); CALCIUM LEVEL 9.6 MG/DL (8.8-10.2); CARBON DIOXIDE LEVEL 25 MEQ/L (21-32); CHLORIDE LEVEL 106 MEQ/L (98-107); CREATININE FOR GFR 0.85 MG/DL (0.55-1.30); GLOMERULAR FILTRATION RATE > 60.0 (>39); GLUCOSE, FASTING 126 MG/DL (70-100); POTASSIUM SERUM 4.2 MEQ/L (3.5-5.1); SODIUM LEVEL 138 MEQ/L (136-145)
[2019-05-01 10:35] LABS: ERYTHROCYTE SEDIMENTATION RATE 49 mm/hr (0-30)
[2019-05-01 10:38] LABS: ATYPICAL LYMPH 2 % (0-5); LYMPHOCYTES 12 % (16-44); METAMYELOCYTES 1 % (0-0); MONOCYTES 7 % (0-5); NEUTROPHILS 78 % (28-66)
[2019-05-01 10:39] LABS: ANISOCYTOSIS 1+; GIANT PLATELETS 1+; PLATELET ESTIMATE DECREASED (NORMAL)
[2019-05-01 11:34] VITALS: BP 164/74
--- NOTE | 2019-05-01 11:38 | REP ---
Left shoulder three views: There is glenohumeral osteoarthritis. Mineralization is normal. The acromioclavicular joint is unremarkable. There are no calcifications or foreign bodies. Impression: Glenohumeral osteoarthritis. Electronically Signed by Jamal Coronado MD 05/01/2019 11:30 A
== END 2019-05-01 11:39 | disposition home or self-care (01) ==
LOC: M ED 09:05
DX: M25.512 Pain in left shoulder (principal); I10 Essential (primary) hypertension; G20 Parkinson's disease; M19.012 Primary osteoarthritis, left shoulder; Z79.899 Other long term (current) drug therapy; Z88.6 Allergy status to analgesic agent; Z88.0 Allergy status to penicillin; Z88.2 Allergy status to sulfonamides; Z88.8 Allergy status to other drugs, medicaments and biological substances

== ENCOUNTER 2019-05-02 13:40 | Outpatient (RCR) | payer MEDICARE, OTHER | END 2019-05-21 | LOC: M OT 13:40 | PROVIDERS: ATTEND Internal Medicine | DX: Z47.89 Encounter for other orthopedic aftercare (principal) ==

== ENCOUNTER → 2019-05-06 | Outpatient (CLI) | payer MEDICARE, OTHER ==
--- NOTE | 2019-05-06 08:55 | REP ---
MRI left shoulder without contrast: History: Swelling, pain, limited range of motion. Question bursitis or infection. Status post left shoulder surgery April 04, 2019. The patient reports pain after receiving an injection. Comparison left shoulder MRI study April 04, 2019. Comparison radiographs May 01 2019. Technique: Axial, oblique coronal, and oblique sagittal imaging planes utilized. T1 and T2-weighted scans were included with and without fat saturation. MRI findings: There is persistent and/or recurrent marked distension of the subacromial subdeltoid bursal region with heterogeneous signal intensity consistent with a proteinaceous material within it such as clot and/or purulent material. The distension is more pronounced than that seen on the recent April 04, 2019 study. The humeral head is displaced inferiorly with the subacromial space is quite widened, 19 mm on oblique coronal scans today compared to 9 mm April 04. There is a small quantity of joint effusion which shows more homogeneous T2 hyperintensity. Cortical and medullary bone signal intensity remain relatively normal and unchanged. There is some subcortical cyst formation in the superolateral humeral head. No andrea marrow edema is seen. AC joint osteoarthritis is noted. Tendinosis in the supraspinatus tendon is again seen. Infraspinatus subscapularis and biceps tendons remain intact. Impression: Marked distension of the subacromial subdeltoid bursa, more prominent than on April 04, 2019. Heterogeneous signal intensity is felt to indicate proteinaceous content such as hematoma and/or abscess. Electronically Signed by John Child MD 05/06/2019 10:15 A
== END ==
LOC: M RAD 06:32
PROVIDERS: ATTEND Orthopaedic Surgery Sports Medicine
DX: M75.52 Bursitis of left shoulder (principal)

== ENCOUNTER → 2019-08-13 | Outpatient (REF) | payer MEDICARE, OTHER | LOC: M SFHCLERA 17:46 | PROVIDERS: ATTEND Nurse Practitioner Family | DX: R30.0 Dysuria (principal) | CPT/HCPCS: 81002; 87088; 87186; G0463 ==

== ENCOUNTER → 2019-11-23 | Outpatient (CLI) | payer MEDICARE, OTHER ==
[2019-11-23 12:55] LABS: BASO % 0.4 % (0.0-1.0); EOS % 0.3 % (0.0-3.0); HEMATOCRIT 39.3 % (36.0-47.0); HEMOGLOBIN 12.3 g/dl (12.0-15.5); LYMPH # 2.1 10^3/uL (1.5-5.0); LYMPH % 26.8 % (24.0-44.0); MEAN CORPUSCULAR HEMOGLOBIN 28.6 pg (27.0-33.0); MEAN CORPUSCULAR HGB CONC 31.3 g/dl (32.0-36.5); MEAN CORPUSCULAR VOLUME 91.4 fl (80.0-96.0); MONO # 1.6 10^3/uL (0.0-0.8); MONO % 19.6 % (0.0-5.0); NEUTROPHILS % 50.9 % (36.0-66.0); WHITE BLOOD COUNT 7.9 10^3/uL (4.0-10.0)
[2019-11-23 13:00] LABS: PLATELET COUNT, AUTOMATED 96 10^3/uL (150-450)
[2019-11-23 13:24] LABS: ERYTHROCYTE SEDIMENTATION RATE 12 mm/hr (0-30)
[2019-11-23 16:19] LABS: ALBUMIN 4.2 GM/DL (3.2-5.2); ALT/SGPT 27 U/L (12-78); BILIRUBIN,TOTAL 0.5 MG/DL (0.2-1.0); BLOOD UREA NITROGEN 13 MG/DL (7-18); C REACTIVE PROTEIN QUANTITATIV 0.43 MG/DL (0.00-0.30); CALCIUM LEVEL 9.2 MG/DL (8.8-10.2); CARBON DIOXIDE LEVEL 27 MEQ/L (21-32); CHLORIDE LEVEL 104 MEQ/L (98-107); CREATININE FOR GFR 0.81 MG/DL (0.55-1.30); FOLATE 22.9 NG/ML; GLOMERULAR FILTRATION RATE > 60.0 (>39); GLUCOSE, FASTING 93 MG/DL (70-100); POTASSIUM SERUM 4.1 MEQ/L (3.5-5.1); SODIUM LEVEL 140 MEQ/L (136-145); TOTAL 25(OH) VITAMIN D 45.4 NG/ML (30.0-100.0); VITAMIN B12 LEVEL 650 PG/ML
== END ==
LOC: M WUC 09:22
PROVIDERS: ATTEND Internal Medicine
DX: M15.9 Polyosteoarthritis, unspecified (principal); D69.6 Thrombocytopenia, unspecified; G62.9 Polyneuropathy, unspecified; E55.9 Vitamin D deficiency, unspecified; Z79.899 Other long term (current) drug therapy

== ENCOUNTER → 2019-12-16 | Outpatient (REF) | payer MEDICARE, OTHER ==
[~2019-12-16] MED LIST changes: +PANT40TA29 PO; -PANT40TA3 PO
== END ==
LOC: M SFHCWAGY 16:52
PROVIDERS: ATTEND Nurse Practitioner Family
DX: R30.0 Dysuria (principal)
CPT/HCPCS: 81002; 87086; G0463

== ENCOUNTER → 2019-12-30 | Outpatient (REF) | payer MEDICARE, OTHER ==
[~2019-12-30] MED LIST changes: -PANT40TA29 PO; +PANT40TA3 PO
== END ==
LOC: M SFHCWAGY 17:06
PROVIDERS: ATTEND Nurse Practitioner Family
DX: R30.0 Dysuria (principal)

== ENCOUNTER → 2020-06-25 | Outpatient (REF) | payer MEDICARE, OTHER ==
[~2020-06-25] MED LIST changes: +PANT40TA29 PO; -PANT40TA3 PO
[2020-06-25 16:32] LABS: BASO % 0.4 % (0.0-1.0); EOS % 0.2 % (0.0-3.0); HEMATOCRIT 41.9 % (36.0-47.0); HEMOGLOBIN 12.5 g/dl (12.0-15.5); LYMPH # 2.8 10^3/uL (1.5-5.0); LYMPH % 33.4 % (24.0-44.0); MEAN CORPUSCULAR HEMOGLOBIN 27.2 pg (27.0-33.0); MEAN CORPUSCULAR HGB CONC 29.8 g/dl (32.0-36.5); MEAN CORPUSCULAR VOLUME 91.1 fl (80.0-96.0); MONO # 1.8 10^3/uL (0.0-0.8); MONO % 21.1 % (0.0-5.0); NEUTROPHILS # 3.6 10^3/uL (1.5-8.5); NEUTROPHILS % 42.1 % (36.0-66.0); WHITE BLOOD COUNT 8.5 10^3/uL (4.0-10.0)
[2020-06-25 16:36] LABS: PLATELET COUNT, AUTOMATED 98 10^3/uL (150-450)
[2020-06-25 17:09] LABS: ALBUMIN 4.5 GM/DL (3.2-5.2); ALT/SGPT 19 U/L (12-78); BILIRUBIN,TOTAL 0.5 MG/DL (0.2-1.0); BLOOD UREA NITROGEN 12 MG/DL (7-18); CALCIUM LEVEL 9.5 MG/DL (8.8-10.2); CARBON DIOXIDE LEVEL 27 MEQ/L (21-32); CHLORIDE LEVEL 103 MEQ/L (98-107); CHOLESTEROL LEVEL 135 MG/DL (<200); CREATININE FOR GFR 0.82 MG/DL (0.55-1.30); GLOMERULAR FILTRATION RATE > 60.0 (>39); GLUCOSE, FASTING 88 MG/DL (70-100); HDL CHOLESTEROL 25 MG/DL (>40); LDL CHOLESTEROL 51 MG/DL (<100); NON-HDL-C 110 MG/DL; POTASSIUM SERUM 3.8 MEQ/L (3.5-5.1); SODIUM LEVEL 139 MEQ/L (136-145); TOTAL PROTEIN 8.3 GM/DL (6.4-8.2); TRIGLYCERIDES LEVEL 294 MG/DL (<150)
== END ==
LOC: M PLALAB 13:07
PROVIDERS: ATTEND Internal Medicine
DX: D69.6 Thrombocytopenia, unspecified (principal); E78.6 Lipoprotein deficiency; M15.9 Polyosteoarthritis, unspecified; G62.9 Polyneuropathy, unspecified

== ENCOUNTER → 2020-06-28 | Outpatient (REF) | payer MEDICARE, OTHER | LOC: M SFHCWAGY 16:52 | PROVIDERS: ATTEND Nurse Practitioner Family | DX: R82.90 Unspecified abnormal findings in urine (principal) ==

== ENCOUNTER → 2020-08-03 | Outpatient (REF) | payer MEDICARE, OTHER | LOC: M SMT 16:48 | PROVIDERS: ATTEND Urology | DX: R31.29 Other microscopic hematuria (principal) ==

== ENCOUNTER → 2020-08-15 | Outpatient (CLI) | payer MEDICARE, OTHER ==
--- NOTE | 2020-08-15 12:08 | REP ---
INDICATION: MICROSCOPIC HEMATURIA. COMPARISON: None. TECHNIQUE: Real-time sonographic evaluation of the kidneys is performed. FINDINGS: Renal cortical echogenicity pattern is normal bilaterally and contours are smooth. There is no evidence of hydronephrosis, cyst, mass, or calculus in either kidney. The right kidney measures 10.3 x 4.3 x 4.6 cm. Left renal dimensions are 11.8 x 4.7 x 3.9 cm. The urinary bladder is unremarkable. IMPRESSION: Negative renal ultrasound. <Electronically signed by Jamal Rodriguez > 08/15/20 [id number]
== END ==
LOC: M RAD 10:47
PROVIDERS: ATTEND Urology
DX: R31.29 Other microscopic hematuria (principal)

== ENCOUNTER → 2020-09-28 | Outpatient (REF) | payer MEDICARE, OTHER ==
[2020-09-28 16:54] LABS: APPEARANCE, URINE HAZY (CLEAR); BACTERIA, URINE AUTO NEGATIVE (NEGATIVE); BILIRUBIN, URINE AUTO NEGATIVE (NEGATIVE); BLOOD, URINE BLOOD NEGATIVE (NEGATIVE); COLOR, URINE YELLOW (YELLOW); GLUCOSE, URINE (UA) AUTO NEGATIVE (NEGATIVE); KETONE, URINE AUTO NEGATIVE (NEGATIVE); LEUKOCYTE ESTERASE, URINE AUTO NEGATIVE (NEGATIVE); MUCUS, URINE SMALL (NEGATIVE); NITRITE, URINE AUTO NEGATIVE (NEGATIVE); PROTEIN, URINE AUTO NEGATIVE (NEGATIVE); RBC, URINE AUTO 0 /HPF (0-3); SPECIFIC GRAVITY URINE AUTO 1.016 (1.002-1.035); SQUAMOUS EPITHELIAL CELL UR AU 0 /HPF (0-6); UROBILINOGEN, URINE AUTO 0.2 mg/dL (0.0-2.0); WBC, URINE AUTO 1 /HPF (0-3)
== END ==
LOC: M SMT 16:39
PROVIDERS: ATTEND Nurse Practitioner Family
DX: R30.0 Dysuria (principal)

== ENCOUNTER → 2020-10-22 | Outpatient (REF) | payer MEDICARE, OTHER ==
[2020-10-22 17:42] LABS: APPEARANCE, URINE HAZY (CLEAR); BACTERIA, URINE AUTO 1+ (NEGATIVE); BILIRUBIN, URINE AUTO NEGATIVE (NEGATIVE); BLOOD, URINE BLOOD NEGATIVE (NEGATIVE); COLOR, URINE YELLOW (YELLOW); GLUCOSE, URINE (UA) AUTO NEGATIVE (NEGATIVE); KETONE, URINE AUTO NEGATIVE (NEGATIVE); LEUKOCYTE ESTERASE, URINE AUTO TRACE (NEGATIVE); MUCUS, URINE SMALL (NEGATIVE); NITRITE, URINE AUTO NEGATIVE (NEGATIVE); PROTEIN, URINE AUTO NEGATIVE (NEGATIVE); RBC, URINE AUTO 3 /HPF (0-3); SPECIFIC GRAVITY URINE AUTO 1.017 (1.002-1.035); SQUAMOUS EPITHELIAL CELL UR AU 1 /HPF (0-6); UROBILINOGEN, URINE AUTO 0.2 mg/dL (0.0-2.0); WBC, URINE AUTO 2 /HPF (0-3)
== END ==
LOC: M SFHCPLAZ 16:52
PROVIDERS: ATTEND Physician Assistant
DX: R39.9 Unspecified symptoms and signs involving the genitourinary system (principal)
CPT/HCPCS: 81001; 81002; 87088; 88108; G0463

== ENCOUNTER → 2020-12-13 | Outpatient (REF) | payer MEDICARE, OTHER ==
[2020-12-13 14:09] LABS: AMORPHOUS SEDIMENT SMALL (NEGATIVE); APPEARANCE, URINE CLOUDY (CLEAR); BACTERIA, URINE AUTO NEGATIVE (NEGATIVE); BILIRUBIN, URINE AUTO NEGATIVE (NEGATIVE); BLOOD, URINE BLOOD NEGATIVE (NEGATIVE); COLOR, URINE YELLOW (YELLOW); GLUCOSE, URINE (UA) AUTO NEGATIVE (NEGATIVE); KETONE, URINE AUTO NEGATIVE (NEGATIVE); LEUKOCYTE ESTERASE, URINE AUTO NEGATIVE (NEGATIVE); MUCUS, URINE SMALL (NEGATIVE); NITRITE, URINE AUTO NEGATIVE (NEGATIVE); PROTEIN, URINE AUTO NEGATIVE (NEGATIVE); RBC, URINE AUTO 6 /HPF (0-3); SQUAMOUS EPITHELIAL CELL UR AU 9 /HPF (0-6); UROBILINOGEN, URINE AUTO 0.2 mg/dL (0.0-2.0); WBC, URINE AUTO 3 /HPF (0-3)
== END ==
LOC: M SMT 12:50
PROVIDERS: ATTEND Nurse Practitioner Family
DX: R30.0 Dysuria (principal)

== ENCOUNTER → 2020-12-28 | Outpatient (CLI) | payer MEDICARE, OTHER ==
[~2020-12-28] MED LIST changes: -CALC1TAB8 PO; +CALC600T67 PO; -KLOR10TA76 PO; +POTA-136 PO
[2020-12-28 13:06] LABS: HEMATOCRIT 40.2 % (36.0-47.0); HEMOGLOBIN 12.4 g/dl (12.0-15.5); MEAN CORPUSCULAR HEMOGLOBIN 28.4 pg (27.0-33.0); MEAN CORPUSCULAR HGB CONC 30.8 g/dl (32.0-36.5); MEAN CORPUSCULAR VOLUME 92.2 fl (80.0-96.0); RED BLOOD COUNT 4.36 10^6/uL (4.00-5.40)
[2020-12-28 13:28] LABS: PLATELET COUNT, AUTOMATED 88 10^3/uL (150-450); WHITE BLOOD COUNT 9.8 10^3/uL (4.0-10.0)
[2020-12-28 13:33] LABS: ATYPICAL LYMPH 4 % (0-5); GIANT PLATELETS 1+; LYMPHOCYTES 12 % (16-44); METAMYELOCYTES 1 % (0-0); MONOCYTES 14 % (0-5); MYELOCYTES 1 % (0-0); NEUTROPHILS 68 % (28-66); PLATELET ESTIMATE DECREASED (NORMAL)
[2020-12-28 13:46] LABS: ALBUMIN 4.4 GM/DL (3.2-5.2); ALT/SGPT 25 U/L (12-78); BILIRUBIN,TOTAL 0.6 MG/DL (0.2-1.0); BLOOD UREA NITROGEN 16 MG/DL (7-18); CALCIUM LEVEL 8.9 MG/DL (8.8-10.2); CARBON DIOXIDE LEVEL 27 MEQ/L (21-32); CHLORIDE LEVEL 102 MEQ/L (98-107); CHOLESTEROL LEVEL 164 MG/DL (<200); CHOLESTEROL RISK RATIO 5.466 (<5); CREATININE FOR GFR 0.82 MG/DL (0.55-1.30); GLOMERULAR FILTRATION RATE > 60.0 (>39); GLUCOSE, FASTING 88 MG/DL (70-100); HDL CHOLESTEROL 30 MG/DL (>40); LDL CHOLESTEROL 104 MG/DL (<100); NON-HDL-C 134 MG/DL; POTASSIUM SERUM 4.5 MEQ/L (3.5-5.1); SODIUM LEVEL 136 MEQ/L (136-145); TOTAL PROTEIN 8.3 GM/DL (6.4-8.2); TRIGLYCERIDES LEVEL 148 MG/DL (<150)
[2020-12-28 14:24] LABS: HEPATITIS C VIRUS ABY INDEX 0.1 INDEX (<0.8)
== END ==
LOC: M PLALAB 10:04
PROVIDERS: ATTEND Internal Medicine
DX: E78.6 Lipoprotein deficiency (principal); D69.6 Thrombocytopenia, unspecified; Z11.59 Encounter for screening for other viral diseases; R79.89 Other specified abnormal findings of blood chemistry; Z79.899 Other long term (current) drug therapy

== ENCOUNTER → 2021-07-15 | Outpatient (CLI) | payer MEDICARE, OTHER ==
[2021-07-15 13:53] LABS: HEMOGLOBIN 11.8 g/dl (12.0-15.5); MEAN CORPUSCULAR HEMOGLOBIN 27.5 pg (27.0-33.0); MEAN CORPUSCULAR HGB CONC 30.3 g/dl (32.0-36.5); MEAN CORPUSCULAR VOLUME 90.9 fl (80.0-96.0); PLATELET COUNT, AUTOMATED 77 10^3/uL (150-450); RED BLOOD COUNT 4.29 10^6/uL (4.00-5.40); WHITE BLOOD COUNT 11.3 10^3/uL (4.0-10.0)
[2021-07-15 14:29] LABS: ALBUMIN 4.2 GM/DL (3.2-5.2); ALT/SGPT 24 U/L (12-78); BILIRUBIN,TOTAL 0.5 MG/DL (0.2-1.0); BLOOD UREA NITROGEN 13 MG/DL (7-18); CALCIUM LEVEL 9.2 MG/DL (8.8-10.2); CARBON DIOXIDE LEVEL 29 MEQ/L (21-32); CHLORIDE LEVEL 104 MEQ/L (98-107); CHOLESTEROL LEVEL 143 MG/DL (<200); CREATININE FOR GFR 0.81 MG/DL (0.55-1.30); GLOMERULAR FILTRATION RATE > 60.0 (>39); GLUCOSE, FASTING 99 MG/DL (70-100); HDL CHOLESTEROL 22 MG/DL (>40); LDL CHOLESTEROL 72 MG/DL (<100); NON-HDL-C 121 MG/DL; POTASSIUM SERUM 4.3 MEQ/L (3.5-5.1); SODIUM LEVEL 139 MEQ/L (136-145); TRIGLYCERIDES LEVEL 243 MG/DL (<150)
[2021-07-15 14:38] LABS: ATYPICAL LYMPH 6 % (0-5); BASOPHILS 2 % (0-1); EOSINOPHILS 1 % (0-3); LYMPHOCYTES 17 % (16-44); METAMYELOCYTES 1 % (0-0); MONOCYTES 17 % (0-5); MYELOCYTES 5 % (0-0); NEUTROPHILS 46 % (28-66)
[2021-07-15 14:39] LABS: GIANT PLATELETS 1+; PLATELET ESTIMATE DECREASED (NORMAL)
[2021-07-15 14:42] LABS: MICROCYTOSIS 1+; OVALOCYTES 1+
== END ==
LOC: M PLALAB 09:45
PROVIDERS: ATTEND Internal Medicine
DX: Z00.00 Encounter for general adult medical examination without abnormal findings (principal); E78.6 Lipoprotein deficiency; D69.6 Thrombocytopenia, unspecified

== ENCOUNTER → 2021-08-19 | Outpatient (CLI) | payer MEDICARE, OTHER ==
[2021-08-19 11:23] LABS: HEMATOCRIT 37.9 % (36.0-47.0); HEMOGLOBIN 11.8 g/dl (12.0-15.5); MEAN CORPUSCULAR HEMOGLOBIN 28.3 pg (27.0-33.0); MEAN CORPUSCULAR HGB CONC 31.1 g/dl (32.0-36.5); MEAN CORPUSCULAR VOLUME 90.9 fl (80.0-96.0); RED BLOOD COUNT 4.17 10^6/uL (4.00-5.40); WHITE BLOOD COUNT 12.8 10^3/uL (4.0-10.0)
[2021-08-19 11:25] LABS: PLATELET COUNT, AUTOMATED 84 10^3/uL (150-450)
[2021-08-19 11:48] LABS: ATYPICAL LYMPH 2 % (0-5); BASOPHILS 1 % (0-1); LYMPHOCYTES 16 % (16-44); METAMYELOCYTES 3 % (0-0); MONOCYTES 7 % (0-5); MYELOCYTES 3 % (0-0); NEUTROPHILS 59 % (28-66)
[2021-08-19 11:49] LABS: PLATELET ESTIMATE DECREASED (NORMAL)
== END ==
LOC: M LAB 10:47
PROVIDERS: ATTEND Internal Medicine
DX: D69.8 Other specified hemorrhagic conditions (principal)

== ENCOUNTER → 2021-11-06 | Outpatient (CLI) | payer MEDICARE, OTHER | LOC: M SOG 07:58 | PROVIDERS: ATTEND Orthopaedic Surgery Adult Reconstructive Orthopaedic Surgery | DX: M17.0 Bilateral primary osteoarthritis of knee (principal) ==

== ENCOUNTER → 2022-01-08 | Outpatient (CLI) | payer MEDICARE, OTHER ==
[2022-01-08 13:55] LABS: HEMATOCRIT 37.1 % (36.0-47.0); HEMOGLOBIN 11.3 g/dl (12.0-15.5); MEAN CORPUSCULAR HEMOGLOBIN 28.3 pg (27.0-33.0); MEAN CORPUSCULAR HGB CONC 30.5 g/dl (32.0-36.5); MEAN CORPUSCULAR VOLUME 92.8 fl (80.0-96.0); WHITE BLOOD COUNT 16.9 10^3/uL (4.0-10.0)
[2022-01-08 13:57] LABS: PLATELET COUNT, AUTOMATED 91 10^3/uL (150-450)
[2022-01-08 14:25] LABS: ALBUMIN 4.7 GM/DL (3.2-5.2); ALT/SGPT 20 U/L (12-78); BILIRUBIN,TOTAL 0.5 MG/DL (0.2-1.0); BLOOD UREA NITROGEN 15 MG/DL (7-18); CALCIUM LEVEL 9.9 MG/DL (8.8-10.2); CARBON DIOXIDE LEVEL 29 MEQ/L (21-32); CHLORIDE LEVEL 104 MEQ/L (98-107); CHOLESTEROL LEVEL 133 MG/DL (<200); CHOLESTEROL RISK RATIO 6.333 (<5); CREATININE FOR GFR 0.72 MG/DL (0.55-1.30); GLOMERULAR FILTRATION RATE > 60.0 (>39); GLUCOSE, FASTING 106 MG/DL (70-100); HDL CHOLESTEROL 21 MG/DL (>40); LDL CHOLESTEROL 61 MG/DL (<100); NON-HDL-C 112 MG/DL; POTASSIUM SERUM 4.2 MEQ/L (3.5-5.1); SODIUM LEVEL 138 MEQ/L (136-145); TOTAL PROTEIN 8.4 GM/DL (6.4-8.2); TRIGLYCERIDES LEVEL 255 MG/DL (<150)
[2022-01-08 14:41] LABS: ATYPICAL LYMPH 5 % (0-5); LYMPHOCYTES 25 % (16-44); METAMYELOCYTES 2 % (0-0); MONOCYTES 14 % (0-5); MYELOCYTES 2 % (0-0); NEUTROPHILS 48 % (28-66)
[2022-01-08 14:42] LABS: ANISOCYTOSIS 2+; MICROCYTOSIS 1+; PLATELET ESTIMATE DECREASED (NORMAL)
== END ==
LOC: M PLALAB 09:46
PROVIDERS: ATTEND Internal Medicine
DX: D69.6 Thrombocytopenia, unspecified (principal); E78.6 Lipoprotein deficiency; G62.9 Polyneuropathy, unspecified; R79.89 Other specified abnormal findings of blood chemistry

== ENCOUNTER → 2022-02-05 | Outpatient (REF) | payer MEDICARE, OTHER ==
[2022-02-05 18:52] LABS: C REACTIVE PROTEIN QUANTITATIV 0.61 MG/DL (0.00-0.30); FERRITIN 137 NG/ML (8-252); IRON (FE) 74 UG/DL (50-170); PERCENT SATURATION 24.8 % (13.2-45.0); TOTAL IRON BINDING CAPACITY 298 UG/DL (250-450); TOTAL PROTEIN 8.1 GM/DL (6.4-8.2)
[2022-02-06 13:41] LABS: ALPHA-1-GLOBULIN % 3.4 % (2.9-4.9); ALPHA-2-GLOBULINS % 7.8 % (7.1-11.8)
[2022-02-06 13:42] LABS: ALBUMIN 4.62 GM/DL (3.29-5.55); ALPHA-1-GLOBULINS 0.28 GM/DL (0.17-0.41); ALPHA-2-GLOBULINS 0.63 GM/DL (0.42-0.99); BETA-1-GLOBULINS 0.45 GM/DL (0.28-0.60); BETA-1-GLOBULINS % 5.5 % (4.7-7.2); BETA-2-GLOBULINS 0.44 GM/DL (0.19-0.55); BETA-2-GLOBULINS % 5.4 % (3.2-6.5); GAMMA GLOBULIN % 20.9 % (11.1-18.8); GAMMA GLOBULINS 1.69 GM/DL (0.65-1.58)
[2022-02-07 15:26] LABS: VITAMIN B12 LEVEL 782 PG/ML (247-911)
[2022-02-07 23:12] LABS: ANA (HEP2) Positive (.); FREE KAPPA LIGHT CHAINS SERUM 35.9 mg/L (3.3-19.4); FREE LAMBDA LIGHT CHAINS SERUM 23.3 mg/L (5.7-26.3); KAPPA/LAMBDA RATIO SERUM 1.54 (0.26-1.65)
== END ==
LOC: M LAB REF 16:22
PROVIDERS: ATTEND Internal Medicine
DX: D64.9 Anemia, unspecified (principal)

== ENCOUNTER → 2022-03-12 | Outpatient (CLI) | payer MEDICARE, OTHER | LOC: M RAD 09:05 | PROVIDERS: ATTEND Internal Medicine Hematology & Oncology | DX: D72.829 Elevated white blood cell count, unspecified (principal); D69.3 Immune thrombocytopenic purpura ==

== ENCOUNTER → 2022-04-09 | Outpatient (REF) | payer MEDICARE, OTHER | LOC: M LAB REF 16:17 | PROVIDERS: ATTEND Nurse Practitioner Adult Health | DX: R35.0 Frequency of micturition (principal) ==

== ENCOUNTER → 2022-05-23 | Outpatient (CLI) | payer MEDICARE, OTHER | LOC: M SOG 08:05 | PROVIDERS: ATTEND Orthopaedic Surgery | DX: M25.512 Pain in left shoulder (principal); M25.511 Pain in right shoulder ==

== ENCOUNTER → 2022-12-05 | Outpatient (CLI) | payer MEDICARE, OTHER | LOC: M SOG 08:15 | PROVIDERS: ATTEND Orthopaedic Surgery | DX: M17.0 Bilateral primary osteoarthritis of knee (principal) ==

== ENCOUNTER → 2022-12-19 | Outpatient (REF) | payer MEDICARE, OTHER | LOC: M LAB REF 16:18 | PROVIDERS: ATTEND Internal Medicine | DX: N39.0 Urinary tract infection, site not specified (principal) ==

== ENCOUNTER → 2023-07-10 | Outpatient (REF) | payer MEDICARE, OTHER ==
[2023-07-10 18:14] LABS: URIC ACID 5.5 MG/DL (3.1-7.8)
[2023-07-10 18:15] LABS: C REACTIVE PROTEIN QUANTITATIV 4.5 MG/DL (<1.0)
[2023-07-13 12:08] LABS: ANTINUCLEAR ANTIBODIES DIRECT Negative (Negative)
== END ==
LOC: M LAB REF 17:28
PROVIDERS: ATTEND Internal Medicine
DX: M13.0 Polyarthritis, unspecified (principal)

== ENCOUNTER → 2023-07-10 | Outpatient (CLI) | payer MEDICARE, OTHER | LOC: M WUC 12:06 | PROVIDERS: ATTEND Internal Medicine | DX: M13.89 Other specified arthritis, multiple sites (principal) ==

== ENCOUNTER → 2023-07-14 | Outpatient (CLI) | payer MEDICARE, OTHER | LOC: M RAD 09:18 | PROVIDERS: ATTEND Internal Medicine Hematology & Oncology | DX: D69.3 Immune thrombocytopenic purpura (principal); D72.829 Elevated white blood cell count, unspecified; D64.9 Anemia, unspecified; D47.2 Monoclonal gammopathy; D47.1 Chronic myeloproliferative disease ==

== ENCOUNTER → 2023-08-21 | Outpatient (REF) | payer MEDICARE, OTHER | LOC: M LAB REF 12:29 | PROVIDERS: ATTEND Nurse Practitioner Family | DX: N39.0 Urinary tract infection, site not specified (principal); B96.4 Proteus (mirabilis) (morganii) as the cause of diseases classified elsewhere ==

== ENCOUNTER → 2023-08-27 | Outpatient (CLI) | payer MEDICARE, OTHER | LOC: M SOG 09:47 | PROVIDERS: ATTEND Orthopaedic Surgery | DX: M19.011 Primary osteoarthritis, right shoulder (principal); M19.012 Primary osteoarthritis, left shoulder ==

== ENCOUNTER → 2023-09-01 | Outpatient (REF) | payer MEDICARE, OTHER | LOC: M LAB REF 13:00 | PROVIDERS: ATTEND Internal Medicine | DX: N39.0 Urinary tract infection, site not specified (principal) ==

== ENCOUNTER → 2023-09-21 | Outpatient (REF) | payer MEDICARE, OTHER ==
[2023-09-21 14:12] LABS: C REACTIVE PROTEIN QUANTITATIV 1.8 MG/DL (<1.0)
[2023-09-21 14:15] LABS: FERRITIN 131.9 NG/ML (7.3-270.7)
== END ==
LOC: M LAB REF 12:06
PROVIDERS: ATTEND Internal Medicine
DX: M06.9 Rheumatoid arthritis, unspecified (principal); D64.9 Anemia, unspecified

== ENCOUNTER → 2024-01-11 | Outpatient (REF) | payer MEDICARE, OTHER ==
[2024-01-11 17:21] LABS: URIC ACID 5.9 MG/DL (3.1-7.8)
[2024-01-11 17:25] LABS: RHEUMATOID FACTOR QUANT 18.2 IU/ML (<14)
[2024-01-14 13:11] LABS: CYCLIC CITRULLINATED PEPTIDE < 16 UNITS (<20)
[2024-01-14 16:07] LABS: ANA PATTERN 2 Nuclear, Speckled; ANA SCREEN, IFA POSITIVE (NEGATIVE); ANA TITER 2 1:40 titer (NEGATIVE)
== END ==
LOC: M LAB REF 16:41
PROVIDERS: ATTEND Internal Medicine
DX: M15.9 Polyosteoarthritis, unspecified (principal)

== ENCOUNTER → 2024-01-14 | Outpatient (CLI) | payer MEDICARE, OTHER ==
[2024-01-14 13:02] LABS: BASO % 0.3 % (0.0-1.0); EOS % 0.1 % (0.0-3.0); HEMATOCRIT 33.8 % (36.0-47.0); HEMOGLOBIN 9.9 g/dl (12.0-15.5); LYMPH # 1.6 10^3/uL (1.5-5.0); LYMPH % 20.9 % (24.0-44.0); MEAN CORPUSCULAR HEMOGLOBIN 28.8 pg (27.0-33.0); MEAN CORPUSCULAR HGB CONC 29.3 g/dl (32.0-36.5); MEAN CORPUSCULAR VOLUME 98.3 fl (80.0-96.0); MONO # 0.7 10^3/uL (0.0-0.8); MONO % 8.3 % (2.0-8.0); NEUTROPHILS # 5.4 10^3/uL (1.5-8.5); NEUTROPHILS % 69.5 % (36.0-66.0); PLATELET COUNT, AUTOMATED 138 10^3/uL (150-450); RED BLOOD COUNT 3.44 10^6/uL (4.00-5.40); WHITE BLOOD COUNT 7.8 10^3/uL (4.0-10.0)
[2024-01-14 13:15] LABS: ERYTHROCYTE SEDIMENTATION RATE 11 mm/hr (0-30)
[2024-01-14 13:31] LABS: C REACTIVE PROTEIN QUANTITATIV 0.8 MG/DL (<1.0)
[2024-01-14 13:34] LABS: COMPLEMENT C3 106.3 MG/DL (90.0-170.0); COMPLEMENT C4 16.7 MG/DL (12-36); RHEUMATOID FACTOR QUANT 19.5 IU/ML (<14)
[2024-01-15 15:42] LABS: ANA PATTERN Nuclear, Speckled (NEGATIVE); ANA SCREEN, IFA POSITIVE (NEGATIVE); ANA TITER 1:40 titer (<1:40)
[2024-01-16 01:18] LABS: CYCLIC CITRULLINATED PEPTIDE < 16 UNITS (<20); IgG P18 AB NON-REACTIVE; IgG P23 AB NON-REACTIVE; IgG P28 AB NON-REACTIVE; IgG P30 AB NON-REACTIVE; IgG P39 AB NON-REACTIVE; IgG P41 AB REACTIVE; IgG P45 AB NON-REACTIVE; IgG P58 AB REACTIVE; IgG P66 AB NON-REACTIVE; IgG P93 AB REACTIVE; IgM P23 AB NON-REACTIVE; IgM P39 AB NON-REACTIVE; IgM P41 AB NON-REACTIVE; LYME IgG WB INTERPRETATION NEGATIVE (NEGATIVE); LYME IgM WB INTERPRETATION NEGATIVE (NEGATIVE)
[2024-01-18 17:38] LABS: LYME TOTAL ANTIBODY CIA <= 0.90 Index (<=0.90)
== END ==
LOC: M WUC 10:45
PROVIDERS: ATTEND Orthopaedic Surgery
DX: M54.12 Radiculopathy, cervical region (principal)

== ENCOUNTER → 2024-02-03 | Outpatient (CLI) | payer MEDICARE, OTHER | LOC: M WHC 01-21 12:57 | PROVIDERS: ATTEND Internal Medicine | DX: Z13.820 Encounter for screening for osteoporosis (principal); M85.88 Other specified disorders of bone density and structure, other site ==

== ENCOUNTER → 2024-07-13 | Outpatient (REF) | payer MEDICARE, OTHER | LOC: M LAB REF 16:28 | PROVIDERS: ATTEND Internal Medicine | DX: R30.0 Dysuria (principal) ==

== ENCOUNTER → 2024-07-25 | Outpatient (REF) | payer MEDICARE, OTHER | LOC: M LAB REF 16:16 | PROVIDERS: ATTEND Internal Medicine | DX: R30.0 Dysuria (principal) ==

== ENCOUNTER → 2024-08-04 | Outpatient (CLI) | payer MEDICARE, OTHER | LOC: M RAD 10:21 | PROVIDERS: ATTEND Internal Medicine Hematology & Oncology | DX: D64.9 Anemia, unspecified (principal); D47.1 Chronic myeloproliferative disease; D72.829 Elevated white blood cell count, unspecified; D69.3 Immune thrombocytopenic purpura; D47.2 Monoclonal gammopathy ==

== ENCOUNTER → 2024-09-08 | Outpatient (REF) | payer MEDICARE, OTHER ==
[2024-09-08 18:23] LABS: HEMATOCRIT 29.4 % (36.0-47.0); HEMOGLOBIN 8.6 g/dl (12.0-15.5); MEAN CORPUSCULAR HEMOGLOBIN 29.1 pg (27.0-33.0); MEAN CORPUSCULAR HGB CONC 29.3 g/dl (32.0-36.5); MEAN CORPUSCULAR VOLUME 99.3 fl (80.0-96.0); RED BLOOD COUNT 2.96 10^6/uL (4.00-5.40); WHITE BLOOD COUNT 12.2 10^3/uL (4.0-10.0)
[2024-09-08 18:52] LABS: PLATELET COUNT, AUTOMATED 49 10^3/uL (150-450)
[2024-09-08 19:25] LABS: BASO % 0.2 % (0.0-1.0); EOS % 1.1 % (0.0-3.0); LYMPH # 3.6 10^3/uL (1.5-5.0); LYMPH % 29.1 % (24.0-44.0); MONO % 43.3 % (2.0-8.0); NEUTROPHILS # 3.1 10^3/uL (1.5-8.5); NEUTROPHILS % 25.6 % (36.0-66.0)
[2024-09-08 19:26] LABS: EOS # 0.1 10^3/uL (0.0-0.5); MONO # 5.3 10^3/uL (0.0-0.8)
== END ==
LOC: M LABDRAWC 17:24
PROVIDERS: ATTEND Nurse Practitioner Family
DX: D64.9 Anemia, unspecified (principal); D47.1 Chronic myeloproliferative disease; D72.829 Elevated white blood cell count, unspecified; D69.3 Immune thrombocytopenic purpura; D47.2 Monoclonal gammopathy; C92.A0 Acute myeloid leukemia with multilineage dysplasia, not having achieved remission

== ENCOUNTER → 2024-09-15 | Outpatient (REF) | payer MEDICARE, OTHER ==
[~2024-09-15] MED LIST changes: +ATIV1TAB10 PO; +D200CAP3 PO; +DAPS100T22 PO; +METO1TAB7 PO; +MIRA3350 PO; +ONDA-83 PO; +OYST1TAB PO; +PRED5TA PO; +VALA500T5 PO; +VENC100T PO; +VITA500C24 PO
[2024-09-15 13:20] LABS: BASO % 0.2 % (0.0-1.0); EOS # 0.1 10^3/uL (0.0-0.5); EOS % 0.6 % (0.0-3.0); HEMATOCRIT 28.6 % (36.0-47.0); HEMOGLOBIN 8.2 g/dl (12.0-15.5); LYMPH # 3.7 10^3/uL (1.5-5.0); LYMPH % 34.9 % (24.0-44.0); MEAN CORPUSCULAR HEMOGLOBIN 29.8 pg (27.0-33.0); MEAN CORPUSCULAR HGB CONC 28.7 g/dl (32.0-36.5); MONO # 4.7 10^3/uL (0.0-0.8); MONO % 44.6 % (2.0-8.0); NEUTROPHILS % 18.6 % (36.0-66.0); RED BLOOD COUNT 2.75 10^6/uL (4.00-5.40); WHITE BLOOD COUNT 10.6 10^3/uL (4.0-10.0)
[2024-09-15 13:26] LABS: PLATELET COUNT, AUTOMATED 27 10^3/uL (150-450)
== END ==
LOC: M LABWUC 12:01
PROVIDERS: ATTEND Nurse Practitioner Family
DX: C92.A0 Acute myeloid leukemia with multilineage dysplasia, not having achieved remission (principal); D64.9 Anemia, unspecified; D47.1 Chronic myeloproliferative disease; D72.829 Elevated white blood cell count, unspecified; D69.3 Immune thrombocytopenic purpura; D47.2 Monoclonal gammopathy

== ENCOUNTER 2024-09-17 13:50 | Inpatient (IN) | payer MEDICARE, OTHER ==
[~2024-09-17] VITALS: Ht 162.6 cm; Wt 79.5 kg
[~2024-09-17 13:50] MED LIST changes: -ATIV1TAB10 PO; -D200CAP3 PO; -DAPS100T22 PO; -METO1TAB7 PO; -MIRA3350 PO; -ONDA-83 PO; -OYST1TAB PO; -PRED5TA PO; -VALA500T5 PO; -VENC100T PO; -VITA500C24 PO
[2024-09-17] MEDS ORDERED: ISOVUE-370 76% 100ML VIAL As Ordered ONE (15:41)
[2024-09-17 16:23] LABS: APPEARANCE, URINE HAZY (CLEAR); BACTERIA, URINE AUTO NEGATIVE (NEGATIVE); BILIRUBIN, URINE AUTO NEGATIVE (NEGATIVE); BLOOD, URINE BLOOD NEGATIVE (NEGATIVE); COLOR, URINE YELLOW (YELLOW); GLUCOSE, URINE (UA) AUTO NEGATIVE (NEGATIVE); KETONE, URINE AUTO NEGATIVE (NEGATIVE); LEUKOCYTE ESTERASE, URINE AUTO TRACE (NEGATIVE); NITRITE, URINE AUTO NEGATIVE (NEGATIVE); PROTEIN, URINE AUTO NEGATIVE (NEGATIVE); RBC, URINE AUTO 1 /HPF (0-3); SPECIFIC GRAVITY URINE AUTO 1.006 (1.002-1.035); SQUAMOUS EPITHELIAL CELL UR AU 6 /HPF (0-6); TRANSITIONAL EPITHELIAL AUTO 2 /HPF; UROBILINOGEN, URINE AUTO 0.2 mg/dL (0.0-2.0); WBC, URINE AUTO 5 /HPF (0-3)
[2024-09-17 16:27] LABS: HEMOGLOBIN 7.2 g/dl (12.0-15.5); MEAN CORPUSCULAR HEMOGLOBIN 30.4 pg (27.0-33.0); MEAN CORPUSCULAR VOLUME 101.3 fl (80.0-96.0); RED BLOOD COUNT 2.37 10^6/uL (4.00-5.40); WHITE BLOOD COUNT 16.7 10^3/uL (4.0-10.0)
[2024-09-17 16:39] LABS: INR 1.5; PARTIAL THROMBOPLASTIN TIME 38.8 SECONDS (24.8-34.2); PROTHROMBIN TIME 18.4 SECONDS (12.5-14.5)
[2024-09-17 17:03] LABS: LIPASE 26 U/L (12-53)
[2024-09-17 17:04] LABS: BASO % 0.2 % (0.0-1.0); EOS # 0.1 10^3/uL (0.0-0.5); EOS % 0.4 % (0.0-3.0); LYMPH # 8.3 10^3/uL (1.5-5.0); LYMPH % 49.8 % (24.0-44.0); MONO % 33.1 % (2.0-8.0); NEUTROPHILS # 2.6 10^3/uL (1.5-8.5); NEUTROPHILS % 15.6 % (36.0-66.0)
[2024-09-17 17:05] LABS: ALBUMIN 3.7 G/DL (3.2-5.2); ALKALINE PHOSPHATASE 70 U/L (35-104); ALT/SGPT 11 U/L (7.0-40); AMYLASE 39 U/L (30-118); AST/SGOT 37 U/L (<34); BILIRUBIN,DIRECT 0.3 MG/DL (<0.4); BLOOD UREA NITROGEN 11 MG/DL (9-23); CALCIUM LEVEL 8.8 MG/DL (8.3-10.6); CARBON DIOXIDE LEVEL 25 MMOL/L (20-31); CHLORIDE LEVEL 100 MMOL/L (98-107); CK-MB VALUE MASS < 1.0 NG/ML (<3.6); CREATININE FOR GFR 0.58 MG/DL (0.55-1.30); GLOMERULAR FILTRATION RATE > 60.0 (>32); GLUCOSE, FASTING 115 MG/DL (74-106); POTASSIUM SERUM 4.5 MMOL/L (3.5-5.1); SODIUM LEVEL 134 MMOL/L (136-145); TOTAL PROTEIN 7.4 G/DL (5.7-8.2)
[2024-09-17 17:08] LABS: MONO # 5.5 10^3/uL (0.0-0.8)
[2024-09-17 17:09] LABS: CPK CREATINE PHOSPHOKINASE 49 U/L (34-145); MB/CK RELATIVE INDEX 2.04 (< OR =4)
[2024-09-17 17:15] LABS: PLATELET COUNT, AUTOMATED 32 10^3/uL (150-450)
[2024-09-17] MEDS: ACETAMINOPHEN *IV* 1,000 MG in IV 1 EA IV ONE (20:26)
[2024-09-17] MEDS ORDERED: MOM 30ML SUSPENSION UDC PO PRN (21:25)
[2024-09-18] MEDS: ACETAMINOPHEN 325 MG TAB PO PRN (04:57)
[2024-09-18 06:45] LABS: HEMATOCRIT 23.5 % (36.0-47.0); MEAN CORPUSCULAR HEMOGLOBIN 29.6 pg (27.0-33.0); MEAN CORPUSCULAR HGB CONC 29.4 g/dl (32.0-36.5); MEAN CORPUSCULAR VOLUME 100.9 fl (80.0-96.0); RED BLOOD COUNT 2.33 10^6/uL (4.00-5.40); WHITE BLOOD COUNT 14.7 10^3/uL (4.0-10.0)
[2024-09-18 06:49] LABS: HEMOGLOBIN 6.9 g/dl (12.0-15.5); PLATELET COUNT, AUTOMATED 30 10^3/uL (150-450)
[2024-09-18 07:13] LABS: ALBUMIN 3.3 G/DL (3.2-5.2); ALKALINE PHOSPHATASE 68 U/L (35-104); ALT/SGPT 10 U/L (7.0-40); AST/SGOT 15 U/L (<34); BILIRUBIN,TOTAL 0.8 MG/DL (0.3-1.2); BLOOD UREA NITROGEN 10 MG/DL (9-23); CALCIUM LEVEL 8.8 MG/DL (8.3-10.6); CARBON DIOXIDE LEVEL 27 MMOL/L (20-31); CHLORIDE LEVEL 103 MMOL/L (98-107); CREATININE FOR GFR 0.61 MG/DL (0.55-1.30); GLOMERULAR FILTRATION RATE > 60.0 (>32); GLUCOSE, FASTING 102 MG/DL (74-106); POTASSIUM SERUM 3.8 MMOL/L (3.5-5.1); SODIUM LEVEL 137 MMOL/L (136-145)
[2024-09-18] MEDS ORDERED: ENOXAPARIN 40MG/0.4ML SYRINGE (J1650 PER 10MG) SC SCH (09:00)
[2024-09-18 10:59] LABS: APPEARANCE, URINE HAZY (CLEAR); BACTERIA, URINE AUTO NEGATIVE (NEGATIVE); BILIRUBIN, URINE AUTO NEGATIVE (NEGATIVE); BLOOD, URINE BLOOD NEGATIVE (NEGATIVE); COLOR, URINE YELLOW (YELLOW); GLUCOSE, URINE (UA) AUTO NEGATIVE (NEGATIVE); KETONE, URINE AUTO NEGATIVE (NEGATIVE); LEUKOCYTE ESTERASE, URINE AUTO NEGATIVE (NEGATIVE); MUCUS, URINE SMALL (NEGATIVE); NITRITE, URINE AUTO NEGATIVE (NEGATIVE); PROTEIN, URINE AUTO NEGATIVE (NEGATIVE); RBC, URINE AUTO 1 /HPF (0-3); SPECIFIC GRAVITY URINE AUTO 1.036 (1.002-1.035); SQUAMOUS EPITHELIAL CELL UR AU 0 /HPF (0-6); UROBILINOGEN, URINE AUTO 0.2 mg/dL (0.0-2.0); WBC, URINE AUTO 0 /HPF (0-3)
[2024-09-18] MEDS: LIDOCAINE 5% (LIDODERM) PATCH TD SCH (10:59)
[2024-09-18] MEDS: DOCUSATE SODIUM 100MG CAPSULE PO SCH (11:00)
[2024-09-18] MEDS ORDERED: METO1TAB7 PO (11:07)
[2024-09-18] MEDS ORDERED: D200CAP3 PO (11:07)
[2024-09-18] MEDS ORDERED: DAPS100T22 PO (11:12)
[2024-09-18] MEDS ORDERED: VALA500T5 PO (11:12)
[2024-09-18] MEDS ORDERED: ATIV1TAB10 PO (11:12)
[2024-09-18] MEDS ORDERED: ONDA-83 PO (11:12)
[2024-09-18] MEDS ORDERED: PRED5TA PO (11:16)
[2024-09-18] MEDS ORDERED: VENC100T PO (11:16)
[2024-09-18] MEDS ORDERED: OYST1TAB PO (11:18)
[2024-09-18] MEDS ORDERED: MIRA3350 PO (11:18)
[2024-09-18] MEDS ORDERED: VITA500C24 PO (11:18)
[2024-09-18] MEDS ORDERED: HOME MED LIST COMPLETE! XX SCH (11:20)
[2024-09-18] MEDS ORDERED: MIRALAX *UNIT DOSE* 17GM PACKET PO PRN (11:25)
[2024-09-18 12:11] VITALS: BP 138/66; TEMP 97.7; O2SAT 94
[2024-09-18] MEDS: ONDANSETRON 4MG TAB PO PRN (12:19)
[2024-09-18 12:26] VITALS: BP 147/66; TEMP 97.5; O2SAT 93
[2024-09-18] MEDS: VENETOCLAX 100 MG PO SCH (13:01)
[2024-09-18 13:30] VITALS: BP 155/65; TEMP 97.8; O2SAT 95
[2024-09-18 14:43] VITALS: BP 151/67; TEMP 98.1; O2SAT 94
[2024-09-18 15:30] VITALS: BP 145/67; TEMP 99.7; O2SAT 94
[2024-09-18] MEDS: predniSONE 5 MG TAB PO SCH (16:10)
[2024-09-18] MEDS: DAPSONE 100 MG TAB PO SCH (16:10)
[2024-09-18] MEDS: METOPROLOL SUCC (TopROL XL) 50MG **XL** TAB PO SCH (16:11)
[2024-09-18] MEDS: OCUVITE 1 TAB PO SCH (16:17)
[2024-09-18] MEDS: MAGNESIUM OXIDE 400MG TAB (MAG-OX) PO SCH (16:17)
[2024-09-18] MEDS: ASCORBIC ACID 500 MG TAB PO SCH (16:17)
[2024-09-18] MEDS: OYSTER SHELL CALCIUM 500 MG TAB PO SCH (16:17)
[2024-09-18] MEDS: VITAMIN D 1,000 INTERNATIONAL UNITS TABLET PO SCH (16:18)
[2024-09-18 16:31] VITALS: BP 164/70; TEMP 98.1; O2SAT 94
[2024-09-18 21:07] LABS: HEMOGLOBIN 8.8 g/dl (12.0-15.5); MEAN CORPUSCULAR HEMOGLOBIN 29.2 pg (27.0-33.0); MEAN CORPUSCULAR HGB CONC 30.3 g/dl (32.0-36.5); MEAN CORPUSCULAR VOLUME 96.3 fl (80.0-96.0); PLATELET COUNT, AUTOMATED 30 10^3/uL (150-450); RED BLOOD COUNT 3.01 10^6/uL (4.00-5.40); WHITE BLOOD COUNT 15.6 10^3/uL (4.0-10.0)
[2024-09-18] MEDS: LORazepam 0.5 MG TAB PO PRN (22:32)
[2024-09-18] MEDS: valACYclovir HCL 500 MG TAB PO SCH (22:32)
[2024-09-19 08:04] LABS: BLOOD UREA NITROGEN 10 MG/DL (9-23); CALCIUM LEVEL 8.6 MG/DL (8.3-10.6); CARBON DIOXIDE LEVEL 27 MMOL/L (20-31); CHLORIDE LEVEL 104 MMOL/L (98-107); CREATININE FOR GFR 0.55 MG/DL (0.55-1.30); GLOMERULAR FILTRATION RATE > 60.0 (>32); GLUCOSE, FASTING 105 MG/DL (74-106); POTASSIUM SERUM 4.1 MMOL/L (3.5-5.1); SODIUM LEVEL 136 MMOL/L (136-145)
[2024-09-19] MEDS: MOM 30ML SUSPENSION UDC PO SCH (09:56)
[2024-09-19 20:04] LABS: HEMOGLOBIN 8.8 g/dl (12.0-15.5); MEAN CORPUSCULAR HEMOGLOBIN 29.6 pg (27.0-33.0); MEAN CORPUSCULAR HGB CONC 30.3 g/dl (32.0-36.5); MEAN CORPUSCULAR VOLUME 97.6 fl (80.0-96.0); RED BLOOD COUNT 2.97 10^6/uL (4.00-5.40); WHITE BLOOD COUNT 18.2 10^3/uL (4.0-10.0)
[2024-09-19 20:14] LABS: PLATELET COUNT, AUTOMATED 27 10^3/uL (150-450)
[2024-09-19 22:07] VITALS: BP 138/63; TEMP 97.4; O2SAT 92
[2024-09-20] VITALS (7 sets, daily range): BP systolic 130–157; BP diastolic 59–90; TEMP 97.3–101; O2SAT 92–95
[2024-09-20 04:05] LABS: HEMATOCRIT 30.1 % (36.0-47.0); HEMOGLOBIN 9.1 g/dl (12.0-15.5); MEAN CORPUSCULAR HEMOGLOBIN 29.7 pg (27.0-33.0); MEAN CORPUSCULAR HGB CONC 30.2 g/dl (32.0-36.5); MEAN CORPUSCULAR VOLUME 98.4 fl (80.0-96.0); RED BLOOD COUNT 3.06 10^6/uL (4.00-5.40); WHITE BLOOD COUNT 24.6 10^3/uL (4.0-10.0)
[2024-09-20 04:06] LABS: PLATELET COUNT, AUTOMATED 30 10^3/uL (150-450)
[2024-09-20 04:24] LABS: BLOOD UREA NITROGEN 13 MG/DL (9-23); CALCIUM LEVEL 8.5 MG/DL (8.3-10.6); CARBON DIOXIDE LEVEL 27 MMOL/L (20-31); CHLORIDE LEVEL 100 MMOL/L (98-107); CREATININE FOR GFR 0.63 MG/DL (0.55-1.30); GLOMERULAR FILTRATION RATE > 60.0 (>32); GLUCOSE, FASTING 109 MG/DL (74-106); MAGNESIUM LEVEL 2.1 MG/DL (1.8-2.4); POTASSIUM SERUM 3.9 MMOL/L (3.5-5.1); SODIUM LEVEL 135 MMOL/L (136-145)
[2024-09-20] MEDS: ONDANSETRON 4MG 2ML VIAL IV ONE (06:41)
[2024-09-20 07:34] LABS: BLAST CELLS 61 % (0-0); LYMPHOCYTES 15 % (16-44); MONOCYTES 3 % (0-5); NEUTROPHILS 21 % (28-66); PLATELET ESTIMATE MARKED DECREASE (NORMAL)
[2024-09-20 07:35] LABS: ANISOCYTOSIS 1+; OVALOCYTES 1+
[2024-09-20 07:36] LABS: POLYCHROMASIA 1+
[2024-09-20 09:16] LABS: URIC ACID 3.9 MG/DL (3.1-7.8)
[2024-09-20 09:19] LABS: PHOSPHORUS LEVEL 2.8 MG/DL (2.4-5.1)
[2024-09-20] MEDS: NS (Normal Saline) 0.9% 1,000 ML IV SCH (10:16)
[2024-09-20] MEDS ORDERED: MOM 30ML SUSPENSION UDC PO PRN (11:45)
[2024-09-20] MEDS: CEFEPIME HCL 2 GM in DEXTROSE 5% (D5W) ADV/MINI-BAG 50 ML IV SCH (12:46)
[2024-09-20] MEDS ORDERED: DOCUSATE SODIUM 100MG CAPSULE PO PRN (20:15)
[2024-09-21 03:25] VITALS: BP 141/65; TEMP 97.6; O2SAT 92
[2024-09-21 05:43] LABS: BASO # 0.1 10^3/uL (0.0-0.2); BASO % 0.1 % (0.0-1.0); EOS % 0.1 % (0.0-3.0); HEMATOCRIT 26.7 % (36.0-47.0); HEMOGLOBIN 8.2 g/dl (12.0-15.5); LYMPH # 13.6 10^3/uL (1.5-5.0); LYMPH % 39.9 % (24.0-44.0); MEAN CORPUSCULAR HEMOGLOBIN 30.5 pg (27.0-33.0); MEAN CORPUSCULAR HGB CONC 30.7 g/dl (32.0-36.5); MEAN CORPUSCULAR VOLUME 99.3 fl (80.0-96.0); NEUTROPHILS # 5.1 10^3/uL (1.5-8.5); NEUTROPHILS % 14.9 % (36.0-66.0); RED BLOOD COUNT 2.69 10^6/uL (4.00-5.40)
[2024-09-21 06:02] LABS: MONO # 14.7 10^3/uL (0.0-0.8)
[2024-09-21 06:05] LABS: BLOOD UREA NITROGEN 12 MG/DL (9-23); CALCIUM LEVEL 7.9 MG/DL (8.3-10.6); CARBON DIOXIDE LEVEL 25 MMOL/L (20-31); CHLORIDE LEVEL 102 MMOL/L (98-107); CREATININE FOR GFR 0.55 MG/DL (0.55-1.30); GLOMERULAR FILTRATION RATE > 60.0 (>32); GLUCOSE, FASTING 129 MG/DL (74-106); PLATELET COUNT, AUTOMATED 25 10^3/uL (150-450); POTASSIUM SERUM 4.2 MMOL/L (3.5-5.1); SODIUM LEVEL 135 MMOL/L (136-145); WHITE BLOOD COUNT 34.2 10^3/uL (4.0-10.0)
[2024-09-21 06:33] VITALS: BP 121/72; TEMP 97.5; O2SAT 97
[2024-09-21 07:12] LABS: URIC ACID 3.7 MG/DL (3.1-7.8)
[2024-09-21 07:14] LABS: LDH LACTATE DEHYDROGENASE 646 U/L (120-246)
[2024-09-21 07:15] LABS: PHOSPHORUS LEVEL 2.5 MG/DL (2.4-5.1)
[2024-09-21 07:56] LABS: KETONE, URINE AUTO RFX NEGATIVE (NEGATIVE); LEUKOCYTE ESTERASE UR AUTO RFX NEGATIVE (NEGATIVE); MUCUS, URINE RFX SMALL (NEGATIVE); NITRITE, URINE AUTO RFX NEGATIVE (NEGATIVE); RBC, URINE AUTO RFX 1 /HPF (0-3); SQUAM EPITHELIAL CELL UR AURFX 10 /HPF (0-6); WBC, URINE AUTO RFX 3 /HPF (0-3)
[2024-09-21 08:01] LABS: ANISOCYTOSIS 2+; ATYPICAL LYMPH 3 % (0-5); BLAST CELLS 65 % (0-0); LYMPHOCYTES 9 % (16-44); MONOCYTES 1 % (0-5); NEUTROPHILS 22 % (28-66)
[2024-09-21 08:02] LABS: MICROCYTOSIS 1+
[2024-09-21 08:03] LABS: PLATELET ESTIMATE MARKED DECREASE (NORMAL)
[2024-09-21 09:03] VITALS: TEMP 102.3
[2024-09-21 09:50] VITALS: BP 121/72
[2024-09-21 12:00] VITALS: BP 150/65; TEMP 99.1; O2SAT 90
[2024-09-21] MEDS ORDERED: MORPHINE 10MG/0.5ML ORAL CONCENTRATE SOLUTION U/D SL PRN (14:20)
[2024-09-21] MEDS: LORazepam 1 MG TAB PO PRN (21:39)
[2024-09-22] MEDS: SCOPOLAMINE 1MG TRANSDERMAL PATCH TOP PRN (08:48)
[2024-09-22] MEDS ORDERED: LORazepam 2 MG/ML 1ML VIAL IV PRN (09:25)
[2024-09-22] MEDS ORDERED: MORPHINE 2 MG/ML 1ML VIAL IV PRN (09:25)
[2024-09-22] MEDS ORDERED: ONDANSETRON 4MG 2ML VIAL IV PRN (09:25)
[2024-09-22] MEDS ORDERED: BISACODYL 10MG SUPP PR PRN (11:00)
[2024-09-22] MEDS ORDERED: ATROPINE SULFATE 1% OPHTH SOLN 2ML BTL SL PRN (11:00)
[2024-09-22] MEDS ORDERED: HYOSCYAMINE SULFATE 0.125 MG SUBL TABLET PO PRN (11:00)
[2024-09-22] MEDS ORDERED: MORPHINE 10MG/0.5ML ORAL CONCENTRATE SOLUTION U/D SL PRN (11:00)
[2024-09-22] MEDS: PROCHLORPERAZINE 5MG TAB PO PRN (12:32)
[2024-09-22] MEDS: ONDANSETRON 4MG ORAL DISINTEGRATING TAB PO SCH (14:43)
[2024-09-22] MEDS: LORazepam 0.5 MG TAB PO PRN (20:02)
[2024-09-23] MEDS ORDERED: ONDANSETRON 4MG 2ML VIAL IV PRN (13:00)
[2024-09-23] MEDS: ACETAMINOPHEN *IV* 1,000 MG in IV 1 EA IV PRN (15:15)
[2024-09-23] MEDS: ONDANSETRON 4MG 2ML VIAL IV PRN (15:15)
[2024-09-23] MEDS ORDERED: ONDANSETRON 4MG TAB PO SCH (16:00)
[2024-09-23] MEDS: MORPHINE 2 MG/ML 1ML VIAL IV PRN (19:28)
[2024-09-24] MEDS: LORazepam 2 MG/ML 1ML VIAL IV PRN ×2 (04:47→11:07)
== END 2024-09-24 14:53 | disposition expired | DRG 551 ==
LOC: EDBD 13:50 → M ED 13:50 → M ED INP 21:23 → M PCU 09-19 22:06 → M MS5PR 09-23 18:32
PROVIDERS: ADMIT Family Medicine; ATTEND Internal Medicine
PROC: 30233N1 Transfusion of Nonautologous Red Blood Cells into Peripheral Vein, Percutaneous Approach (ICD-10-PCS; principal; 2024-09-18)
PROC: B246ZZZ Ultrasonography of Right and Left Heart (ICD-10-PCS; 2024-09-20)
DX: S22.089A Unspecified fracture of T11-T12 vertebra, initial encounter for closed fracture (principal); D61.810 Antineoplastic chemotherapy induced pancytopenia; A41.9 Sepsis, unspecified organism; E88.3 Tumor lysis syndrome; C92.A0 Acute myeloid leukemia with multilineage dysplasia, not having achieved remission; D69.3 Immune thrombocytopenic purpura; J98.11 Atelectasis; R57.8 Other shock; W18.2XXA Fall in (into) shower or empty bathtub, initial encounter; Y92.002 Bathroom of unspecified non-institutional (private) residence as the place of occurrence of the external cause; D73.5 Infarction of spleen; Z66 Do not resuscitate; K59.00 Constipation, unspecified; E55.9 Vitamin D deficiency, unspecified; I10 Essential (primary) hypertension; D47.2 Monoclonal gammopathy; R33.9 Retention of urine, unspecified; G47.00 Insomnia, unspecified; F39 Unspecified mood [affective] disorder; Z87.891 Personal history of nicotine dependence; Z79.899 Other long term (current) drug therapy; Z88.0 Allergy status to penicillin; Z88.2 Allergy status to sulfonamides; Z88.6 Allergy status to analgesic agent; Z88.8 Allergy status to other drugs, medicaments and biological substances